=== PATIENT | female | born 1980 | race Caucasian/White ===

== ENCOUNTER 2016-10-12 15:30 | Inpatient (IN) | payer BC ==
[~2016-10-12] VITALS: Ht 162.6 cm; Wt 120.2 kg
[~2016-10-12 15:30] MED LIST: ALPR0.254 PO; AMLO5TAB2 PO; CARI350T27 PO; CYCL10TA9 PO; DCS100C PO; FEXO1TAB43 PO; FURO20TA4 PO; IBP800T PO; IBUP-1780 PO; LEVO75TA6 PO; METH4TAB PO; MONT10TA21 PO; MONT10TA24 PO; MULT-974 PO; NEBI5TAB8 PO; NORG1TAB30 PO; OXYC-197 PO; OXYC-202 PO; OXYC-309 PO; OXYC1TAB12 PO; PRD20T PO; PREN1TAB71 PO; RECLIPSEN PO; TRIA1CAP4 PO; TRM50T PO
[2016-10-12] MEDS ORDERED: ACETAMINOPHEN 500 MG TAB (TYLENOL) PO PRN (15:45)
[2016-10-12] MEDS ORDERED: ONDANSETRON 4 MG/2 ML (SDV) Z0FRAN IVP PRN (15:45)
[2016-10-12] MEDS ORDERED: ALPRAZolam 0.25 MG (XANAX) TAB PO PRN (15:45)
[2016-10-12 16:20] VITALS: BP 140/93
[2016-10-12 17:24] LABS: BASOPHILS % (AUTO) 0 % (0-10); EOSINOPHILS # (AUTO) 0.2 10^3/uL (0.0-0.3); EOSINOPHILS % (AUTO) 3 % (0-10); LYMPHOCYTES # (AUTO) 2.3 X 10^3 (1.0-4.0); LYMPHOCYTES % (AUTO) 30 % (12-44); MEAN CORPUSCULAR HEMOGLOBIN 30 PG (25-34); MEAN CORPUSCULAR HGB CONC 34 G/DL (32-36); MEAN CORPUSCULAR VOLUME 89 FL (80-99); MEAN PLATELET VOLUME 9.7 FL (7.4-10.4); MONOCYTES # (AUTO) 0.6 X 10^3 (0.0-1.0); MONOCYTES % (AUTO) 8 % (0-12); NEUTROPHILS # (AUTO) 4.6 X 10^3 (1.8-7.8); NEUTROPHILS % (AUTO) 59 % (42-75); PLATELET COUNT 242 10^3/uL (130-400); RED BLOOD COUNT 4.81 10^6/uL (4.35-5.85); RED CELL DISTRIBUTION WIDTH 12.6 % (10.0-14.5); WHITE BLOOD COUNT 7.7 10^3/uL (4.3-11.0)
--- NOTE | 2016-10-12 17:28 | Diagnostic Imaging Report ---
Indication: Difficulty breathing PA and lateral chest Heart size and pulmonary vascularity are normal. Lungs are clear. There are no effusions or pneumothoraces. Impression: Negative chest Dictated by: Dictated on workstation # [id number]
[2016-10-12 17:41] LABS: ANION GAP 11 MMOL/L (5-14); BLOOD UREA NITROGEN 13 MG/DL (7-18); BUN/CREATININE RATIO 16; CALCIUM 8.8 MG/DL (8.5-10.1); CARBON DIOXIDE 23 MMOL/L (21-32); CHLORIDE 103 MMOL/L (98-107); CREATININE SERUM 0.79 MG/DL (0.60-1.30); GFR ESTIMATED > 60; GLUCOSE 94 MG/DL (70-105); POTASSIUM 3.3 MMOL/L (3.6-5.0); SODIUM 137 MMOL/L (135-145)
[2016-10-12] MEDS: LEVOFLOXACIN 750 MG/150 ML IV 150 ML IV SCH (17:51)
[2016-10-12] MEDS: methylPREDNISolone 125 MG (Solu-MEDROL) VIAL IV SCH ×2 (17:51→23:57)
[2016-10-12] MEDS ORDERED: methylPREDNISolone 40 MG/ML (Solu-MEDROL) VIAL IV SCH (18:00)
[2016-10-12] MEDS ORDERED: FLU TRIvalent (5 YOA+) 2016-17 (AFLURIA) 0.5 ML IM ONE (18:30)
[2016-10-12] MEDS: RT-BUDESONIDE NEBS 0.5 MG/2ML (PULMICORT) AMP INH SCH (19:08)
[2016-10-12] MEDS: RT-ALBUTEROL/IPRATROPIUM 3 ML (DUONEB) VIAL INH SCH (19:08)
[2016-10-12 19:25] VITALS: BP 130/81
[2016-10-12] MEDS: POLYETHYLENE GLYCOL 17 GM (MIRALAX) PACK PO SCH (21:00)
[2016-10-12] MEDS: CEFEPIME INJECTION 2,000 MG in NORMAL SALINE (BAXTER MINI) 50 ML IV SCH (21:24)
[2016-10-12] MEDS: guaiFENesin/CODEINE (ROBITUSSIN AC) 10ML UDC PO PRN (21:24)
[2016-10-12 23:57] VITALS: BP 147/85
[2016-10-13 04:00] VITALS: BP 132/88
[2016-10-13] MEDS: guaiFENesin/CODEINE (ROBITUSSIN AC) 10ML UDC PO PRN ×2 (05:59→20:07)
[2016-10-13] MEDS: methylPREDNISolone 125 MG (Solu-MEDROL) VIAL IV SCH ×4 (05:59→23:30)
[2016-10-13] MEDS ORDERED: CEFEPIME HCL 2 GM (MAXIPIME) VIAL ONE (07:00)
[2016-10-13] MEDS ORDERED: NORMAL SALINE (BAXTER MINI) 50 ML IV ONE (07:00)
[2016-10-13] MEDS: RT-ALBUTEROL/IPRATROPIUM 3 ML (DUONEB) VIAL INH SCH (07:23)
[2016-10-13] MEDS: RT-BUDESONIDE NEBS 0.5 MG/2ML (PULMICORT) AMP INH SCH ×2 (07:23→20:19)
[2016-10-13 08:00] VITALS: BP 144/84
[2016-10-13] MEDS: CEFEPIME INJECTION 2,000 MG in NORMAL SALINE (BAXTER MINI) 50 ML IV SCH (08:07)
[2016-10-13] MEDS: POLYETHYLENE GLYCOL 17 GM (MIRALAX) PACK PO SCH ×2 (08:07→20:07)
--- NOTE | 2016-10-13 08:35 | Pulmonary Consultation ---
History of Present Illness History of Present Illness Date of Consultation 10/13/16 08:32 Date of Admission History of Present Illness 36-year-old white female clinic patient of [facility] for the past several years with a past medical history of asthma that required Advair maintenance then was discontinued when asthma improved during and breast-feeding but the last 6 months she has returned back to [facility] due to asthma issues. She was traveling to [place] over [place] and required urgent care evaluation placed on antibiotics and steroids and she was seen in my office 2 weeks later and reporting the wheezing had continued so I increased her Advair to 1 puff twice a day and gave her steroid dose but she called the office yesterday with severe wheezing and could no longer go on so she was placed in the hospital for status asthmaticus Allergies and Home Medications Allergies Coded Allergies: sumatriptan (Verified Allergy, Unknown, 10/12/16) Home Medications Albuterol Sulfate 8.5 Gm Hfa.aer.ad 1-2 PUFF IH Q4H PRN PRN SHORTNESS OF BREATH (Reported) Amlodipine Besylate 5 Mg Tablet 5 MG PO DAILY (Reported) Budesonide/Formoterol Fumarate 10.2 Gm Hfa.aer.ad 2 PUFF INH BID (Reported) Levothyroxine Sodium 75 Mcg Tablet 75 MCG PO DAILY (Reported) Montelukast Sodium 10 Mg Tablet 10 MG PO HS (Reported) Norgestimate-Ethinyl Estradiol 1 Each Tablet 1 TAB PO HS (Reported) Triamterene/Hydrochlorothiazid 1 Each Capsule 1 CAP PO DAILY (Reported) Past Vfcehoc-Bnwzuy-Blbdep Hx Patient Social History Alcohol Use: Denies Use Recreational Drug Use: No Smoking Status: Former Smoker Type Used: Cigarettes Former Smoker/When Quit: Nov 27, 2001 Recent Foreign Travel: No Contact w/Someone Who Travel: No Recent Infectious Disease Expo: No Recent Hopitalizations: No Physical Abuse Screen: No Sexual Abuse: No Immunizations Up To Date Tetanus Booster (TDap): Less than 5yrs PED Vaccines UTD: Yes Date of Influenza Vaccine: Jun 01, 2015 Seasonal Allergies Seasonal Allergies: Yes Surgeries HX Surgeries: Yes (acl repair, knee scope, discectomy X2, wisdom teeth removed ) Respiratory Hx Respiratory Disorders: Yes (SEASONAL ALLERGIES) Respiratory Disorders: Asthma, Pneumonia Cardiovascular Hx Cardiac Disorders: Yes (NOT ON MEDS AT THIS TIME-WATCHING B/P) Cardiac Disorders: High Cholesterol, Hypertension Neurological Hx Neurological Disorders: Yes (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) Reproductive System Hx Reproductive Disorders: No (DUB, POLYP) Sexually Transmitted Disease: No HIV/AIDS: No Female Reproductive Disorders: Menstrual Problems Genitourinary Hx Genitourinary Disorders: No Gastrointestinal Hx Gastrointestinal Disorders: Yes Gastrointestinal Disorders: Irritable Bowel Musculoskeletal Hx Musculoskeletal Disorders: Yes (herniated l4-l5--back discectomy 2011; LEFT ACL, knee scope, ) Musculoskeletal Disorders: Chronic Back Pain, Fractures Endocrine Hx Endocrine Disorders: Yes Endocrine Disorders: Hypothyroidsim HEENT HX ENT Disorders: No Loss of Vision: Denies Hearing Impairment: Denies Cancer Hx Cancer: No Psychosocial Hx Psychiatric Problems: No Integumentary HX Skin/Integumentary Disorder: Yes (hx skin fungus) Blood Transfusions Hx Blood Disorders: Yes (HX OF ANEMIA) Adverse Reaction to a Blood Tr: No (N/A) Family Medical History Family Medial History: Family history: Cardiovascular disease 03 FATHER Family history: Hypertension 03 MOTHER Headache disorder 03 FATHER (had brain tumor) 09 SISTER Myocardial infarction 03 FATHER Exam Exam Vital Signs Date Time Temp Pulse Resp B/P Pulse Ox O2 Delivery O2 Flow Rate FiO2 10/13/16 08:00 96.2 125 22 144/84 100 Room Air 10/13/16 07:27 96 Room Air 10/13/16 04:00 97.7 79 18 132/88 97 Room Air 10/13/16 01:00 86 10/12/16 23:57 97.9 91 20 147/85 95 Room Air 10/12/16 21:00 Room Air 10/12/16 19:25 98.9 102 18 130/81 95 Room Air 10/12/16 19:09 97 Room Air 10/12/16 19:09 97 10/12/16 19:00 98 10/12/16 16:20 Room Air 10/12/16 16:20 98.6 108 22 140/93 95 Room Air I & O 10/13/16 07:00 Intake Total 1190 ml Output Total 1475 ml Balance -285 ml General Appearance: No Apparent Distress WD/WN HEENT: PERRL/EOMI Neck: Full Range of Motion Normal Inspection Respiratory: Chest Non Tender No Accessory Muscle Use No Respiratory Distress Decreased Breath Sounds Cardiovascular: Regular Rate, Rhythm No Edema No Gallop Gastrointestinal: normal bowel sounds non tender soft Neurologic/Psychiatric: Alert Oriented x3 Skin: Normal Color Cool Results Lab Laboratory Tests 10/12/16 17:13 Assessment/Plan Assessment/Plan Asthma AE -Change SVN to Xopenex secondary to intolerance of albuterol -SOlumedrol -Continue to monitor Clinical Quality Measures DVT/VTE Risk/Contraindication: Risk Factor Score Per Nursin RFS Level Per Nursing on Admit: 3=High TED DAVID DO Oct 13, 2016 08:35
[2016-10-13] MEDS ORDERED: AMLO5TAB2 PO (08:38)
[2016-10-13] MEDS ORDERED: TRIA1CAP4 PO (08:38)
[2016-10-13] MEDS ORDERED: BUDE10.2 INH (08:38)
[2016-10-13] MEDS ORDERED: RT-ALBUINH IH (08:38)
[2016-10-13] MEDS ORDERED: KCL 20 MEQ TAB (K-DUR) PO NR (09:15)
[2016-10-13] MEDS ORDERED: CATHETER FLUSH 10 ML SYR IV PRN (09:45)
[2016-10-13] MEDS: RT-IPRATROPIUM (ATROVENT) 0.5MG/2.5ML AMP IH SCH ×4 (11:18→22:35)
[2016-10-13] MEDS: RT-LEVALBUTEROL (XOPENEX) 1.25 MG/3 ML NEB NON-FORMULARY INH SCH ×4 (11:18→22:35)
[2016-10-13] MEDS: CATHETER FLUSH 10 ML SYR IV SCH ×2 (11:56→20:07)
[2016-10-13 12:00] VITALS: BP 123/77
--- NOTE | 2016-10-13 12:03 | History & Physical-Hospitalist ---
HPI History of Present Illness: HPI/Chief Complaint CC: Severe wheezing HPI: This is a 36-year-old white female clinic patient of [facility] for the past several years with a past medical history of asthma that required Advair maintenance then was discontinued when asthma improved during and breast-feeding but the last 6 months she has returned back to [facility] due to asthma issues. She was traveling to [place] over [place] and required urgent care evaluation placed on antibiotics and steroids and she was seen in my office 2 weeks later and reporting the wheezing had continued so I increased her Advair to 1 puff twice a day and gave her steroid dose but she called the office yesterday with severe wheezing and could no longer go on so she was placed in the hospital for status asthmaticus and consult to Dr. Linda. Chest x-ray did not reveal any infiltrate and she has been responding to IV steroids. 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) Alcohol Use: Denies Use Recreational Drug Use: No Smoking Status: Former Smoker Former smoker/When Quit: Nov 27, 2001 Type Used: Cigarettes Physical Abuse Screen: No Sexual Abuse: No Recent Foreign Travel: No Contact w/other who traveled: No Recent Hopitalizations: No Recent Infectious Disease Expo: No Immunizations Up To Date Tetanus Booster (TDap): Less than 5yrs Date of Influenza Vaccine: Oct 13, 2016 Seasonal Allergies Seasonal Allergies: Yes Surgeries HX Surgeries: Yes (acl repair, knee scope, discectomy X2, wisdom teeth removed ) Surgeries: Gallbladder Respiratory Hx Respiratory Disorders: Yes (SEASONAL ALLERGIES) Respiratory Disorders: Asthma Cardiovascular Hx Cardiovascular Disorders: Yes (NOT ON MEDS AT THIS TIME-WATCHING B/P) Cardiac Disorders: High Cholesterol, Hypertension Neurological Hx Neurological Disorders: Yes (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) Reproductive System Hx Reproductive Disorders: No (DUB, POLYP) Sexually Transmitted Disease: No HIV/AIDS: No Female Reproductive Disorders: Menstrual Problems Genitourinary Hx Genitourinary Disorders: No Gastrointestinal Hx Gastrointestinal Disorders: Yes Gastrointestinal Disorders: Irritable Bowel Musculoskeletal Hx Musculoskeletal Disorders: Yes (herniated l4-l5--back discectomy 2011; LEFT ACL, knee scope, ) Musculoskeletal Disorders: Chronic Back Pain, Fractures Endocrine Hx Endocrine Disorders: Yes Endocrine Disorders: Hypothyroidsim HEENT HX ENT Disorders: No Loss of Vision: Denies Hearing Impairment: Denies Cancer Hx Cancer: No Psychosocial Hx Psychiatric Problems: No Integumentary HX Skin/Integumentary Disorder: Yes (hx skin fungus) Blood Transfusions Hx Blood Disorders: Yes (HX OF ANEMIA) Adverse Reaction to a Blood Tr: No (N/A) Family Medical History Family Hx: Family history: Cardiovascular disease 03 FATHER Family history: Hypertension 03 MOTHER Headache disorder 03 FATHER (had brain tumor) 09 SISTER Myocardial infarction 03 FATHER Review of Systems Constitutional: see HPI dizziness weakness EENTM: no symptoms reported Respiratory: cough dyspnea on exertion wheezing Cardiovascular: no symptoms reported Gastrointestinal: no symptoms reported Genitourinary: no symptoms reported Musculoskeletal: no symptoms reported Skin: no symptoms reported Psychiatric/Neurological: No Symptoms Reported All Other Systems Reviewed Negative Unless Noted: Yes Physical Exam Physical Exam Vital Signs Vital Sign - Last 12Hours Capillary Refill : General Appearance: WD/WN Chronically ill Moderate Distress (due to wheezing when I evaluated her before admit now much improved) Eyes: Bilateral Eye Normal Inspection, Bilateral Eye PERRL HEENT: PERRL/EOMI Normal ENT Inspection Pharynx Normal Neck: Full Range of Motion Normal Inspection Non Tender Supple Carotid Bruit Respiratory: Chest Non Tender Crackles Decreased Breath Sounds Rales (much improved exam day after admit) Wheezing Cardiovascular: Regular Rate, Rhythm No Edema No Gallop No JVD No Murmur Normal Peripheral Pulses Gastrointestinal: Normal Bowel Sounds No Organomegaly No Pulsatile Mass Non Tender Soft Back: Normal Inspection No CVA Tenderness No Vertebral Tenderness Extremity: Normal Capillary Refill Normal Inspection Normal Range of Motion Non Tender No Calf Tenderness No Pedal Edema Neurologic/Psychiatric: Alert Oriented x3 No Motor/Sensory Deficits Normal Mood/Affect Skin: Normal Color Warm/Dry Lymphatic: No Adenopathy Results Results/Procedures Lab Laboratory Tests 10/12/16 17:13 Assessment/Plan Admission Diagnosis Assessment: Status asthmaticus failed antibiotics and steroids 4 weeks ago 2 Hypertension Obesity Hypokalemia Anxiety Assessment and Plan Continue IV steroids Likely discharge on Sunday Monitor closely due to status asthmaticus high risk for respiratory decompensation if worsens Clinical Quality Measures DVT/VTE Risk/Contraindication: Risk Factor Score Per Nursin RFS Level Per Nursing on Admit: 3=High CINDY PERDUE DO Oct 13, 2016 12:03
[2016-10-13] MEDS: HYDROcodone/APAP 5 MG/325 MG (LORTAB) TAB PO PRN ×2 (15:24→23:34)
[2016-10-13 16:30] VITALS: BP 129/75
[2016-10-13] MEDS: LEVOFLOXACIN 750 MG/150 ML IV 150 ML IV SCH (16:46)
[2016-10-13 19:30] VITALS: BP 127/80
[2016-10-13 23:33] VITALS: BP 109/51
[2016-10-14] MEDS: RT-LEVALBUTEROL (XOPENEX) 1.25 MG/3 ML NEB NON-FORMULARY INH SCH ×3 (02:00→10:51)
[2016-10-14] MEDS: RT-IPRATROPIUM (ATROVENT) 0.5MG/2.5ML AMP IH SCH ×3 (02:00→10:51)
[2016-10-14 04:00] VITALS: BP 134/71
[2016-10-14] MEDS: guaiFENesin/CODEINE (ROBITUSSIN AC) 10ML UDC PO PRN (05:02)
[2016-10-14] MEDS: CATHETER FLUSH 10 ML SYR IV SCH (05:03)
[2016-10-14] MEDS: methylPREDNISolone 125 MG (Solu-MEDROL) VIAL IV SCH ×2 (05:03→10:51)
[2016-10-14] MEDS: RT-BUDESONIDE NEBS 0.5 MG/2ML (PULMICORT) AMP INH SCH (06:57)
[2016-10-14 08:45] VITALS: BP 111/66
[2016-10-14] MEDS: POLYETHYLENE GLYCOL 17 GM (MIRALAX) PACK PO SCH (09:00)
--- NOTE | 2016-10-14 10:41 | Discharge Summary-Hospitalist ---
Diagnosis/Chief Complaint Date of Admission Oct 12, 2016 at 16:20 Date of Discharge Discharge Date: Oct 14, 2016 Admission Diagnosis Assessment: Status asthmaticus failed antibiotics and steroids 4 weeks ago 2 Hypertension Obesity Hypokalemia Anxiety Discharge Diagnosis 1. Acute asthma exacerbation. 2. History of hypertension Reason Hospital Visit/Course CC: Severe wheezing HPI: This is a 36-year-old white female clinic patient of [facility] for the past several years with a past medical history of asthma that required Advair maintenance then was discontinued when asthma improved during and breast-feeding but the last 6 months she has returned back to [facility] due to asthma issues. She was traveling to [place] over [place] and required urgent care evaluation placed on antibiotics and steroids and she was seen in my office 2 weeks later and reporting the wheezing had continued so I increased her Advair to 1 puff twice a day and gave her steroid dose but she called the office yesterday with severe wheezing and could no longer go on so she was placed in the hospital for status asthmaticus and consult to Dr. Linda. Chest x-ray did not reveal any infiltrate and she has been responding to IV steroids. patient had significant improvement on IV steroids and bronchodilator therapy. On the morning of the she was not wheezing talking in full sentences. She is able to take deep breaths without coughing during the interview and voices no complaints. She did not feel that she would have any difficulty meeting her own care needs at home. We did discuss the importance of finishing an oral course of prednisone for which she was discharged on 40 mg 5 days 20 mg 5 days and off. The importance of her Symbicort inhaler compliance was also discussed and for now 4 times a day every 4 when necessary albuterol. She will follow-up with Dr. Perdue beginning of the week. She had no symptoms to suggest bacterial infection so was not discharged on an oral antibiotic. Discharge Summary Discharge Physical Examination Allergies: Coded Allergies: sumatriptan (Verified Allergy, Unknown, 10/12/16) Vitals & I&Os Vital Signs Date Time Temp Pulse Resp B/P Pulse Ox O2 Delivery O2 Flow Rate FiO2 10/14/16 09:00 Room Air 10/14/16 08:45 97.7 102 20 111/66 95 Hospital Course Labs (last 24 hrs) Microbiology 10/12/16 Blood Culture - Preliminary, Resulted No growth 10/13/16 Gram Stain - Final, Resulted 10/13/16 Sputum Culture - Preliminary, Resulted Usual/normal cate isolated. Discharge Home Medications: Active Scripts Active Reported Proair Hfa (Albuterol Sulfate) 8.5 Gm Hfa.aer.ad 1-2 Puff IH Q4H PRN Symbicort 160-4.5 Mcg Inhaler (Budesonide/Formoterol Fumarate) 10.2 Gm Hfa.aer.ad 2 Puff INH BID Triamterene-Hctz 37.5-25 mg Cp (Triamterene/Hydrochlorothiazid) 1 Each Capsule 1 Cap PO DAILY Amlodipine Besylate 5 Mg Tablet 5 Mg PO DAILY Mononessa 28 Tablet (Norgestimate-Ethinyl Estradiol) 1 Each Tablet 1 Tab PO HS Montelukast Sodium 10 Mg Tablet 10 Mg PO HS Levothyroxine Sodium 75 Mcg Tablet 75 Mcg PO DAILY Instructions to patient/family Please see electonic discharge instructions given to patient. Clinical Quality Measures DVT/VTE Risk/Contraindication: Risk Factor Score Per Nursin RFS Level Per Nursing on Admit: 3=High Copy Copies To 1: ALICIA PERDUE MARK D MD Oct 14, 2016 10:41
[2016-10-14 11:35] VITALS: BP 111/66
== END 2016-10-14 11:40 | disposition home or self-care (01) | DRG 203 ==
LOC: 4TH 16:20
PROVIDERS: ADMIT Internal Medicine; ATTEND Internal Medicine
DX: J45.902 Unspecified asthma with status asthmaticus (principal); J45.901 Unspecified asthma with (acute) exacerbation; I10 Essential (primary) hypertension; E78.00 Pure hypercholesterolemia, unspecified; E03.9 Hypothyroidism, unspecified; Z87.891 Personal history of nicotine dependence; E87.6 Hypokalemia; F41.9 Anxiety disorder, unspecified; E66.9 Obesity, unspecified; Z23 Encounter for immunization
CPT/HCPCS: 36415; 71020; 80048; 83605; 85025; 87040; 87070; 87205; 94640; 94760

== ENCOUNTER 2017-06-05 05:42 | Outpatient (CLI) | payer BC ==
[~2017-06-05] VITALS: Ht 162.6 cm; Wt 120.2 kg
[~2017-06-05 05:42] MED LIST changes: +BUDE10.2 INH; +RT-ALBUINH IH
[2017-06-05] MEDS ORDERED: FLUT1DIS26 IH (11:15)
== END 2017-06-05 11:22 ==
LOC: PREOP 05:42
PROVIDERS: ATTEND Podiatrist Foot Surgery
DX: Z01.818 Encounter for other preprocedural examination (principal); M72.2 Plantar fascial fibromatosis

== ENCOUNTER 2017-06-08 06:03 | Day surgery (SDC) | payer BC ==
[~2017-06-08] VITALS: Ht 162.6 cm; Wt 120.2 kg
[~2017-06-08 06:03] MED LIST changes: +FLUT1DIS26 IH
--- OUTSIDE RECORDS SUMMARY | 2017-06-08 06:08 | XMS REPORT | Clinical Summary ---
Author Author User, BALDEMAR Organization Formerly [facility] [place] Address Unknown Phone Unavailable Allergies, Adverse Reactions, Alerts Allergy Name Reaction Description Start Date Severity Status Provider IMITREX Fuzzy feeling Critical Active Cindy Perdue Conditions or Problems Problem Name Problem Code Onset Date Status Entry Date Provider Comment Standard Description Annotate COMMON MIGRAINE 346.10 Active Cindy Perdue Migraine without aura, without mention of intractable migraine, without mention of status migrainosus TREMOR NEC 333.1 Resolved Cindy Perdue Essential and other specified forms of tremor BRONCHITIS 490 Resolved Cindy Perdue Bronchitis, not specified as acute or chronic COUGH 786.2 Resolved Cindy Perdue Cough ADHD 314.01 Resolved Cindy Perdue Attention deficit disorder of childhood with hyperactivity OTITIS MEDIA 382.9 Resolved Cindy Perdue Unspecified otitis media HYPERTENSION 401.1 Active Cindy Perdue Benign essential hypertension UTI 599.0 Resolved Cindy Perdue Urinary tract infection, site not specified BACK PAIN 724.5 Resolved Cindy Perdue Backache, unspecified EDEMA LEG 782.3 Active Cindy Perdue Edema SKIN NEOPLASM, BENIGN 216.9 Resolved Cindy Perdue Benign neoplasm of skin, site unspecified CELLULITIS 682.9 Resolved Cindy Perdue Cellulitis and abscess of unspecified sites ASTHMA 493.9 Correction Cindy Perdue Asthma, unspecified ASTHMA, INTERMITTENT, MILD 493.90 Active Cindy Perdue Asthma, unspecified WHEEZING 786.07 Resolved Cindy Perdue Wheezing LUMBAR RADICULOPATHY, RIGHT 724.4 Resolved Cindy Perdue Thoracic or lumbosacral neuritis or radiculitis, unspecified SCIATICA/HERNIATED DISC 722.10 Resolved Cindy Perdue Displacement of lumbar intervertebral disc without myelopathy HYPOTHYROIDISM, PRIMARY 244.9 Active Cindy Perdue Unspecified hypothyroidism ANKLE PAIN, RIGHT 719.47 Resolved Cindy Perdue Pain in joint involving ankle and foot CERVICAL LYMPHADENOPATHY 785.6 Resolved Cindy Perdue Enlargement of lymph nodes DEHYDRATION 276.51 Inactive Cindy Perdue Dehydration VOMITING, PERSISTENT 536.2 Inactive Cindy Perdue Persistent vomiting BRONCHITIS 490 Inactive Cindy Perdue Bronchitis, not specified as acute or chronic SINUSITIS, SPHENOIDAL, ACUTE 461.3 Inactive Cindy Perdue Acute sphenoidal sinusitis BRONCHITIS 490 Inactive Cindy Perdue Bronchitis, not specified as acute or chronic TINEA VERSICOLOR 111.0 Resolved Cindy Perdue Pityriasis versicolor WEIGHT GAIN, ABNORMAL 783.1 Active Cindy Perdue Abnormal weight gain AMENORRHEA 626.0 Resolved Cindy Perdue Absence of menstruation Medication List Medication Instructions Start Date Stop Date Generic Name NDC Status Provider Patient Instruction SPRINTEC 28 0.25-35 MG-MCG TABS 1 PO daily NORGESTIMATE-ETH ESTRADIOL 47007260453 Active Cindy Ember Perdue XANAX 0.25 MG TABS 1 PO Q6hrs prn ALPRAZOLAM 63868969305 No Longer Active Cindy Ember Perdue LASIX 20 MG TAB 1 PO daily prn fluid retention FUROSEMIDE 44584812256 No Longer Active Cindy Ember Perdue PROAIR HFA 108 (90 BASE) MCG/ACT AERS 2 puffs Q4hrs prn ALBUTEROL SULFATE 79164388083 No Longer Active Cindy Ember Perdue ADVAIR DISKUS 100-50 MCG/DOSE AEPB 1 PUFF BID FLUTICASONE-SALMETEROL 64328433567 No Longer Active Cindy Ember Perdue DYAZIDE 37.5-25 MG CAP 1 PO daily TRIAMTERENE-HCTZ 34440562446 No Longer Active Cindy Ember Perdue BYSTOLIC 5 MG TABS 1 PO daily NEBIVOLOL HCL 47146151297 No Longer Active Cindy Ember Perdue NORVASC 5 MG TAB 1 PO QD AMLODIPINE BESYLATE 58711244517 No Longer Active Cindy Ember Perdue ZOFRAN ODT 8 MG TBDP 1 PO Q6hrs prn nausea ONDANSETRON 88083284928 No Longer Active Cindy Ember Perdue DIFLUCAN 100 MG TAB 1 PO daily for 2 weeks; then 1 PO daily prn FLUCONAZOLE 74962296471 No Longer Active Cindy Ember Perdue FOLIC ACID 1 MG TAB 1 po daily FOLIC ACID 48550568375 Active Cindy Ember Perdue RECLIPSEN 0.15-30 MG-MCG TABS 1 po daily DESOGESTREL-ETHINYL ESTRADIOL 00047992323 No Longer Active Cindy Ember SAUNDERS'S NASAL SPRAY (DEXAMETHASONE, GENTAMICIN, SALINE) 2 puffs each nostril TID for [address] SAUNDERS'[facility] NASAL SPRAY ( DEXAMETHASONE, GENTAMICIN, SALINE) No Longer Active Cindy Perdue SINGULAIR 10 MG TABS 1 PO QHS MONTELUKAST SODIUM 15782284089 Active Cate Lloyd TESSALON 200 MG CAPS 1 PO TID prn cough BENZONATATE No Longer Active Cindy Ember Perdue PREDNISONE 20 MG TAB 1 PO daily for 3 days then 1/2 PO daily for 3 days 12/24 PREDNISONE 91210323709 No Longer Active Cnidy Ember Perdue AUGMENTIN 500-125 MG TAB 1 PO BID AMOXICILLIN-POT CLAVULANATE 01939245774 No Longer Active Cindy Ember Perdue TESSALON 200 MG CAPS 1 PO TID prn cough BENZONATATE No Longer Active Cindywellington Perdue ROBITUSSIN A-C 10-100 MG/5ML SYRUP 1 teaspoon PO Q 4-6 hr prn ROBITUSSIN A-C 10-100 MG/5ML SYRUP No Longer Active Cindywellington Perdue PREDNISONE 10 MG TAB 2 po at once for 3 days then 1 po daily for 5 days 11/27 PREDNISONE 39902991564 No Longer Active Cindywellington Perdue BIAXIN 500 MG TAB 1 PO BID CLARITHROMYCIN 90107508648 No Longer Active Cindywellington Perdue SYNTHROID 0.075 MG TAB 1 PO daily LEVOTHYROXINE SODIUM 43689520226 Active Cate Lloyd LORTAB 5 5-500 MG TABS 1 to 2 PO Q6hrs prn ACETAMINOPHEN-HYDROCODONE 23790798190 No Longer Active Cindy Ember Perdue SOMA 350 MG TAB 1 po TID prn CARISOPRODOL 03926454474 No Longer Active Cindy Ember Perdue PERCOCET 5-325 MG TAB 1-2 PO Q 6 hours prn OXYCODONE- ACETAMINOPHEN 84413389575 No Longer Active Cindy Ember Perdue PREDNISONE 20 MG TAB 2 pills at once for 4 days then 1 pill daily for 4 days PREDNISONE 30471574225 No Longer Active Cindy Ember Perdue ROBITUSSIN A-C 10-100 MG/5ML SYRUP 1 teaspoon PO Q 4-6 hr prn ROBITUSSIN A-C 10-100 MG/5ML SYRUP No Longer Active Cindy Ember Perdue TESSALON 200 MG CAPS 1 PO TID prn cough BENZONATATE 81564154380 No Longer Active Cindy Ember Perdue PREDNISONE 20 MG TAB 2 pills at once for 2 days then 1 pill daily for 2 days PREDNISONE 20393663778 No Longer Active Cindy Ember Perdue PROAIR HFA 108 (90 BASE) MCG/ACT AERS 2 puff Q4 hrs prn wheezing ALBUTEROL SULFATE 13614088393 No Longer Active Cindy Ember Perdue ADVAIR DISKUS 100-50 MCG/DOSE MISC 1 puff BID FLUTICASONE-SALMETEROL 86258905591 No Longer Active Cindy Ember Perdue TESSALON 200 MG CAPS 1 PO TID prn cough BENZONATATE 57703669290 No Longer Active Cindy Ember Perdue ALBUTEROL 90 MCG/ACT AERS 2 puffs Q4-6hrs prn ALBUTEROL 89438666589 No Longer Active Cindy Ember Perdue STRATTERA 10 MG CAPS 1 PO BID ATOMOXETINE HCL 72430418956 No Longer Active Cindy Ember Perdue MIDRIN 325-65-100 MG CAPS 1-2 PO for migraine APAP- ISOMETHEPTENE-DICHLORAL 71194769783 No Longer Active Cindy Ember Perdue BCP as directed BCP No Longer Active Cindy Ember Perdue BIAXIN 500 MG TAB 1 PO BID CLARITHROMYCIN 75735237880 No Longer Active Cindy Ember Perdue ROBITUSSIN A-C 10-100 MG/5ML SYRUP 5cc PO Q 4-6 hr prn ROBITUSSIN A-C 10-100 MG/5ML SYRUP 73315320769 No Longer Active Cindy Ember Perdue CHLORPHENIRAMINE MALEATE 4 MG TABS 1 PO Q6hrs prn for cold 09/17 CHLORPHENIRAMINE MALEATE 11321745257 No Longer Active Cindy Ember Perdue AUGMENTIN 875-125 MG TAB 1 PO BID AMOXICILLIN-POT CLAVULANATE 82425788501 No Longer Active Cindy Ember Perdue TESSALON 200 MG CAPS 1 PO TID prn BENZONATATE 88450728711 No Longer Active Cindy Ember Perdue TESSALON 200 MG CAPS 1 po TID prn cough BENZONATATE 97191801285 No Longer Active Cindy Ember Perdue MANDI 28 3-0.03 MG TABS as directed DROSPIRENONE-ETHINYL ESTRADIOL 46580308364 No Longer Active Cindy Ember Perdue CODICLEAR DH 5-100 MG/5ML SYRP 5 cc Po Q4-6prn HYDROCODONE-GUAIFENESIN 62527508052 No Longer Active Cindy Ember Perdue AUGMENTIN 875-125 MG TAB 1 PO BID AMOXICILLIN-POT CLAVULANATE 29016700235 No Longer Active Cindy Ember Perdue ROBITUSSIN A-C 10-100 MG/5ML SYRUP 5cc PO Q 4-6 hr prn ROBITUSSIN A-C 10-100 MG/5ML SYRUP 44987402393 No Longer Active Cate Lloyd RELPAX 40 MG TABS as directed ELETRIPTAN HYDROBROMIDE 08305340360 No Longer Active Cindy Perdue IMITREX 100 MG TABS as directed SUMATRIPTAN SUCCINATE 40779567705 No Longer Active iCndy Perdue VELIVET TABS as directed DESOGESTREL-ETHINYL ESTRADIOL 64430281176 No Longer Active Cate Lloyd Immunizations Vaccine Administration Date Value Standard Description pneumococcal immunization administered done pneumococcal polysaccharide vaccine, 23 valent Vital Signs Date Name Value Unit Range Description blood pressure, diastolic - 8462-4 78 mm[Hg] BP gutierres blood pressure, systolic - 8480-6 118 mm[Hg] BP sys pulse rate E&M - 8867-4 80 /min Heart rate respiratory rate E&M - 9279-1 14 /min Resp rate temperature E&M 98.2 [degF] Body temperature blood pressure, diastolic - 8462-4 70 mm[Hg] BP gutierres blood pressure, systolic - 8480-6 120 mm[Hg] BP sys pulse rate E&M - 8867-4 88 /min Heart rate respiratory rate E&M - 9279-1 14 /min Resp rate temperature E&M 98.6 [degF] Body temperature weight E&M - 3141-9 270 [lb_av] Weight Measured Diagnostic Results Date Name Value Unit Range Description Clinical Lists Update: CMP,FLP,TSH,FREE T4 - Chemistry Estimated Glomerular Filtration Rate (calc) 84 mL/min/1.73m2 albumin, serum 3.5 g/dL cholesterol/HDL ratio, serum, percent 3.6 anion gap, serum 10 sodium, serum 139 mmol/L triglyceride, serum, fasting 162 mg/dL bilirubin, serum, total 0.5 mg/dL alanine aminotransferase (SGPT), serum 19 U/L aspartate aminotransferase (SGOT), serum 14 U/L protein, total, serum 5.9 g/dL potassium, serum 4.1 mmol/L LDL cholesterol, serum 92 mg/dL thyroid stimulating hormone, serum 3.82 u[iU]/mL HDL cholesterol, serum 47.0 mg/dL thyroxine, serum, free 0.93 ng/dL creatinine, serum 0.8 mg/dL carbon dioxide, venous blood 26.0 mmol/L cholesterol, serum 171 mg/dL chloride, serum 107 mmol/L calcium, serum 8.6 mg/dL urea nitrogen, blood 15 mg/dL alkaline phosphatase, serum 100 U/L glucose, plasma fasting 91 mg/dL Encounters Code Encounter Date Provider Facility CPT-64534 Ofc Vst, Est Level IV 17:15:02 CDT Cindy Perdue DO, FACP CPT-53952 Ofc Vst, Est Level IV 16:35:45 CDT Cindywellington Perdue [facility] CPT-40422 Ofc Vst, Est Level IV 19:35:36 CDT Cindy Perdue [facility] CPT-65118 Ofc Vst, Est Level III 14:02:40 CDT Cindy Perdue DO, FACP CPT-42570 Ofc Vst, Est Level III 19:49:54 [employer] [employer] Cindy Perdue DO, FACP CPT-32943 Ofc Vst, Est Level IV 11:14:25 [facility] [employer] Cindy Perdue DO, FACP CPT-93192 Ofc Vst, Est Level III 19:28:24 [employer] [employer] Cindy Hurtado Perdue, DO, FACP CPT-68929 Ofc Vst, Est Level IV 14:39:01 [employer] Cindy Hurtado Nette, DO, FACP CPT-73004 Ofc Vst, Est Level IV 16:16:52 CDT Cindy Ember [facility] CPT-27908 Ofc Vst, Est Level IV 16:43:48 CDT Cindy Ember [facility] CPT-33175 Ofc Vst, Est Level III 14:43:24 CDT Cindy Ember [facility] CPT-89590 Ofc Vst, Est Level IV 12:54:30 [employer] Cindy Hurtado Nette, DO, FACP CPT-52187 Ofc Vst, Est Level IV 14:34:50 CDT Cindy Ember Hurtado Nette, DO, FACP CPT-17450 Ofc Vst, Est Level IV 10:15:06 CDT Cindy Ember Hurtado Nette, DO, FACP CPT-78481 Ofc Vst, Est Level III 11:15:51 CDT Cindywellington Hurtado Nette, DO, FACP CPT-58026 Ofc Vst, Est Level III 14:27:08 CDT Cindywellington Hurtado Nette, DO, FACP CPT-53795 Ofc Vst, Est Level IV 14:10:01 CDT Cindywellington Hurtado Nette, DO, FACP CPT-81722 Ofc Vst, New Level IV 15:26:35 [employer] Cindy Hurtado Perdue, DO, FACP CPT-47782 Ofc Vst, Est Level III 14:13:38 CDT Cindy Ember Hurtado Nette, DO, FACP CPT-21582 Ofc Vst, Est Level III 11:42:15 [employer] D[employer] Cindy Perdue, DO, FACP CPT-57866 Ofc Vst, Est Level III 14:40:46 [employer] DIP[employer] Cindy Perdue, DO, FACP CPT-80593 Ofc Vst, Est Level III 11:30:03 [employer] DIP[employer] Cindy Perdue DO, FACP CPT-92334 Ofc Vst, Est Level III 12:39:54 CDT Cindy Perdue DO, FACP CPT-35250 Ofc Vst, Est Level III 10:19:05 CDT Cindy Perdue [facility] [place] CPT-27390 Ofc Vst, Est Level III 10:06:46 CDT Cindy Perdue [facility] [place] CPT-68669 Ofc Vst, New Level III 12:15:31 CDT Cindy Perdue [facility] [place]
--- OUTSIDE RECORDS SUMMARY | 2017-06-08 06:09 | XMS REPORT | Clinical Summary ---
Author Author User, [employer] Organization [facility] [place] Address Unknown Phone Unavailable Allergies, Adverse Reactions, [...] as acute or chronic TINEA VERSICOLOR 111.0 Active Cindy Perdue Pityriasis versicolor WEIGHT GAIN, ABNORMAL 783.1 Active Cindy Perdue Abnormal weight gain AMENORRHEA 626.0 Active Cindy Perdue Absence of menstruation Medication List Medication Instructions Start Date Stop Date Generic Name NDC Status Provider Patient Instruction ZOFRAN ODT 8 MG TBDP 1 PO Q6hrs prn nausea ONDANSETRON [id number] No Longer Active Cindy Ember Perdue DIFLUCAN 100 MG TAB 1 PO daily for 2 weeks; then 1 PO daily prn FLUCONAZOLE 25164618143 No Longer Active Cindy Ember Perdue FOLIC ACID 1 MG TAB 1 po daily FOLIC ACID 25509550017 Active Cindy Ember Perdue RECLIPSEN 0.15-30 MG-MCG TABS 1 po daily DESOGESTREL-ETHINYL ESTRADIOL 77650340548 No Longer Active Cindy Ember SAUNDERS'S NASAL SPRAY (DEXAMETHASONE, GENTAMICIN, SALINE) 2 puffs each nostril TID for [address] SAUNDERS[facility] NASAL SPRAY ( DEXAMETHASONE, GENTAMICIN, SALINE) No Longer Active Cindywellington Perdue SINGULAIR 10 MG TABS 1 PO QHS MONTELUKAST SODIUM 86903571024 Active Cate Bernardotis TESSALON 200 MG CAPS 1 PO TID prn cough BENZONATATE No Longer Active Cindywellington Perdue PREDNISONE 20 MG TAB 1 PO daily for 3 days then 1/2 PO daily for 3 days 12/24 PREDNISONE 30414562895 No Longer Active Cindywellington Perdue AUGMENTIN 500-125 MG TAB 1 PO BID AMOXICILLIN-POT CLAVULANATE 34504380216 No Longer Active Cindywellington Perdue TESSALON 200 MG CAPS 1 PO TID prn cough BENZONATATE No Longer Active Cindywellington Perdue ROBITUSSIN A-C 10-100 MG/5ML SYRUP 1 teaspoon PO Q 4-6 hr prn ROBITUSSIN A-C 10-100 MG/5ML SYRUP No Longer Active Cindywellington Perdue PREDNISONE 10 MG TAB 2 po at once for 3 days then 1 po daily for 5 days 11/27 PREDNISONE 29911624982 No Longer Active Cindy Ember Perdue BIAXIN 500 MG TAB 1 PO BID CLARITHROMYCIN 26365984563 No Longer Active Cindy Ember Perdue XANAX 0.25 MG TABS 1 PO Q6hrs prn ALPRAZOLAM 75699267903 Active Cindy Ember Perdue BYSTOLIC 5 MG TABS 1 PO daily NEBIVOLOL HCL 69354432778 Active Cindy Ember Perdue LASIX 20 MG TAB 1 PO daily prn fluid retention FUROSEMIDE 95520799872 Active Cindy Ember Perdue SYNTHROID 0.075 MG TAB 1 PO daily LEVOTHYROXINE SODIUM 15839217870 Active Cate Lloyd LORTAB 5 5-500 MG TABS 1 to 2 PO Q6hrs prn ACETAMINOPHEN-HYDROCODONE 24659846695 No Longer Active Cindy Ember Perdue PROAIR HFA 108 (90 BASE) MCG/ACT AERS 2 puffs Q4hrs prn ALBUTEROL SULFATE 58547835443 Active Cate Lloyd SOMA 350 MG TAB 1 po TID prn CARISOPRODOL 26679408206 No Longer Active Cindywellington Perdue PERCOCET 5-325 MG TAB 1-2 PO Q 6 hours prn OXYCODONE- ACETAMINOPHEN 50423352514 No Longer Active Cindywellington Perdue PREDNISONE 20 MG TAB 2 pills at once for 4 days then 1 pill daily for 4 days PREDNISONE 15725937671 No Longer Active Cindy Ember Perdue ADVAIR DISKUS 100-50 MCG/DOSE AEPB 1 PUFF BID FLUTICASONE- SALMETEROL 82907959948 Active Cindywellington Perdue ROBITUSSIN A-C 10-100 MG/5ML SYRUP 1 teaspoon PO Q 4-6 hr prn ROBITUSSIN A-C 10-100 MG/5ML SYRUP No Longer Active Cindy Ember Perdue TESSALON 200 MG CAPS 1 PO TID prn cough BENZONATATE 87320864615 No Longer Active Cindy Ember Perdue PREDNISONE 20 MG TAB 2 pills at once for 2 days then 1 pill daily for 2 days PREDNISONE 79442947137 No Longer Active Cindy Ember Perdue PROAIR HFA 108 (90 BASE) MCG/ACT AERS 2 puff Q4 hrs prn wheezing ALBUTEROL SULFATE 74218948368 No Longer Active Cindy Ember Perdue ADVAIR DISKUS 100-50 MCG/DOSE MISC 1 puff BID FLUTICASONE-SALMETEROL 94541993182 No Longer Active Cindy Ember Perdue NORVASC 5 MG TAB 1 PO QD AMLODIPINE BESYLATE 06510496632 Active Cindy Ember Perdue DYAZIDE 37.5-25 MG CAP 1 PO daily TRIAMTERENE-HCTZ 28721855839 Active Cindy Ember Perdue TESSALON 200 MG CAPS 1 PO TID prn cough BENZONATATE 09778210688 No Longer Active Cindy Ember Perdue ALBUTEROL 90 MCG/ACT AERS 2 puffs Q4-6hrs prn ALBUTEROL 60293640122 No Longer Active Cindy Ember Perdue STRATTERA 10 MG CAPS 1 PO BID ATOMOXETINE HCL 66163034330 No Longer Active Cindy Ember Perdue MIDRIN 325-65-100 MG CAPS 1-2 PO for migraine APAP- ISOMETHEPTENE-DICHLORAL 94386666455 No Longer Active Cindy Ember Perdue BCP as directed BCP No Longer Active Cindy Ember Perdue BIAXIN 500 MG TAB 1 PO BID CLARITHROMYCIN 75116031915 No Longer Active Cindy Ember Perdue ROBITUSSIN A-C 10-100 MG/5ML SYRUP 5cc PO Q 4-6 hr prn ROBITUSSIN A-C 10-100 MG/5ML SYRUP 20949164792 No Longer Active Cindy Ember Perdue CHLORPHENIRAMINE MALEATE 4 MG TABS 1 PO Q6hrs prn for cold 09/17 CHLORPHENIRAMINE MALEATE 44461430152 No Longer Active Cindy Ember Perdue AUGMENTIN 875-125 MG TAB 1 PO BID AMOXICILLIN-POT CLAVULANATE 49168604066 No Longer Active Cindy Ember Perdue TESSALON 200 MG CAPS 1 PO TID prn BENZONATATE 16515614421 No Longer Active Cindy Ember Perdue TESSALON 200 MG CAPS 1 po TID prn cough BENZONATATE 85137452958 No Longer Active Cindy Ember Perdue MANDI 28 3-0.03 MG TABS as directed DROSPIRENONE-ETHINYL ESTRADIOL 29945063017 No Longer Active Cindy Ember Perdue CODICLEAR DH 5-100 MG/5ML SYRP 5 cc Po Q4-6prn HYDROCODONE-GUAIFENESIN 65286610249 No Longer Active Cindy Ember Perdue AUGMENTIN 875-125 MG TAB 1 PO BID AMOXICILLIN-POT CLAVULANATE 16068516078 No Longer Active Cindy Ember Perdue ROBITUSSIN A-C 10-100 MG/5ML SYRUP 5cc PO Q 4-6 hr prn ROBITUSSIN A-C 10-100 MG/5ML SYRUP 95901934866 No Longer Active Cate Lloyd RELPAX 40 MG TABS as directed ELETRIPTAN HYDROBROMIDE 59562830175 No Longer Active Cindy Ember Perdue IMITREX 100 MG TABS as directed SUMATRIPTAN SUCCINATE 52898094556 No Longer Active Cindy Ember JAIMES[place]ton TABS as directed DESOGESTREL-ETHINYL ESTRADIOL 35458189221 No Longer Active Cate Lloyd Immunizations Vaccine Administration Date Value Standard Description pneumococcal immunization administered done pneumococcal polysaccharide vaccine, 23 valent Vital Signs Date Name Value Unit Range Description blood pressure, diastolic - 8462-4 70 mm[Hg] BP gutierres blood pressure, systolic - 8480-6 120 mm[Hg] BP sys pulse rate E&M - 8867-4 88 /min Heart rate respiratory rate E&M - 9279-1 14 /min Resp rate temperature E&M 98.6 [degF] Body temperature weight E&M - 3141-9 270 [lb_av] Weight Measured Diagnostic Results Date Name Value Unit Range Description Clinical Lists Update: CBC,CMP,FLP,TSH,Free T4 - Chemistry Estimated Glomerular Filtration Rate (calc) 85 mL/min/1.73m2 glucose, plasma fasting 99 mg/dL albumin, serum 3.8 g/dL alkaline phosphatase, serum 103 U/L urea nitrogen, blood 16 mg/dL calcium, serum 9.1 mg/dL chloride, serum 103 mmol/L cholesterol, serum 191 mg/dL cholesterol/HDL ratio, serum, percent 4.4 anion gap, serum 12 sodium, serum 138 mmol/L triglyceride, serum, fasting 143 mg/dL bilirubin, serum, total 0.6 mg/dL alanine aminotransferase (SGPT), serum 21 U/L aspartate aminotransferase (SGOT), serum 15 U/L protein, total, serum 0.6 g/dL potassium, serum 4.2 mmol/L LDL cholesterol, serum 119 mg/dL thyroid stimulating hormone, serum 2.07 u[iU]/mL HDL cholesterol, serum 43.0 mg/dL thyroxine, serum, free 0.93 ng/dL creatinine, serum 0.8 mg/dL carbon dioxide, venous blood 27.0 mmol/L Clinical Lists Update: CBC,CMP,FLP,TSH,Free T4 - Hematology leukocyte count, blood 8.2 10*3/mm3 mean corpuscular volume, RBC 89 fL red blood cell distribution width 14.3 % hemoglobin, blood 12.9 g/dL platelet count 286 10*3/mm3 erythrocyte (RBC) count 4.63 10*6/mm3 hematocrit, blood 41 % Encounters Code Encounter Date Provider Facility CPT-92944 Ofc Vst, Est Level IV 16:35:45 CDT Cindy Ember Perdue [facility] CPT-14235 Ofc Vst, Est Level IV 19:35:36 CDT Cindy Ember Perdue [facility] CPT-00522 Ofc Vst, Est Level III 14:02:40 CDT Cindy Perdue DO, FACP CPT-13690 Ofc Vst, Est Level III 19:49:54 [employer] Cindy Perdue DO, FACP CPT-77120 Ofc Vst, Est Level IV 11:14:25 [facility] Cindy Perdue DO, FACP CPT-09422 Ofc Vst, Est Level III 19:28:24 [employer] C[employer] Cindy Perdue, DO, FACP CPT-84359 Ofc Vst, Est Level IV 14:39:01 [employer] C[employer] Cindy Perdue DO, FACP CPT-23873 Ofc Vst, Est Level IV 16:16:52 CDT Cindy Ember Perdue [facility] CPT-93660 Ofc Vst, Est Level IV 16:43:48 CDT Cindywellington Perdue [facility] CPT-81117 Ofc Vst, Est Level III 14:43:24 CDT Cindy Ember Per[facility] CPT-62040 Ofc Vst, Est Level IV 12:54:30 [employer] C[employer] Cindy Ember Hurtado Perdue, DO, FACP CPT-79668 Ofc Vst, Est Level IV 14:34:50 CDT Cindy Ember Hurtado Nette, DO, FACP CPT-39086 Ofc Vst, Est Level IV 10:15:06 CDT Cindy Ember Hurtado Nette, DO, FACP CPT-04640 Ofc Vst, Est Level III 11:15:51 CDT Cindy Ember Hurtado Nette, DO, FACP CPT-02428 Ofc Vst, Est Level III 14:27:08 CDT Cindy Ember Hurtado Nette, DO, FACP CPT-44821 Ofc Vst, Est Level IV 14:10:01 CDT Cindywellington Hurtado Nette, DO, FACP CPT-00968 Ofc Vst, New Level IV 15:26:35 L[employer] CUTTER Cindy Hurtado Nette, DO, FACP CPT-86740 Ofc Vst, Est Level III 14:13:38 CDT Cindywellington Hurtado Nette, DO, FACP CPT-67281 Ofc Vst, Est Level III 11:42:15 [employer] C[employer]TER Cindy Hurtado Nette, DO, FACP CPT-18700 Ofc Vst, Est Level III 14:40:46 [employer] C[employer]TER Cindy Hurtado Nette, DO, FACP CPT-80549 Ofc Vst, Est Level III 11:30:03 [employer] CUTTER Cindy Hurtado Nette, DO, FACP CPT-71164 Ofc Vst, Est Level III 12:39:54 CDT Cindy Ember Perdue, DO, FACP CPT-29845 Ofc Vst, Est Level III 10:19:05 CDT Cindy Perdue [facility] [place] CPT-01208 Ofc Vst, Est Level III 10:06:46 CDT Cindy Perdue [facility] [place] CPT-96710 Ofc Vst, New Level III 12:15:31 CDT Cindy Perdue [facility] [place]
--- OUTSIDE RECORDS SUMMARY | 2017-06-08 06:10 | XMS REPORT | Clinical Summary ---
Author Author User, BALDEMAR Organization [facility] [place] Address Unknown Phone Unavailable Allergies, Adverse Reactions, [...] MG-MCG TABS 1 PO daily NORGESTIMATE-ETH ESTRADIOL [id number] Active Cindy Ember Perdue XANAX 0.25 MG TABS 1 PO Q6hrs prn ALPRAZOLAM 18534921364 No Longer Active Cindy Ember Perdue LASIX 20 MG TAB 1 PO daily prn fluid retention FUROSEMIDE 63573629124 No Longer Active Cindy Ember Perdue PROAIR HFA 108 (90 BASE) MCG/ACT AERS 2 puffs Q4hrs prn ALBUTEROL SULFATE 58601594271 No Longer Active Cindy Ember Perdue ADVAIR DISKUS 100-50 MCG/DOSE AEPB 1 PUFF BID FLUTICASONE-SALMETEROL 36566508080 No Longer Active Cindy Ember Perdue DYAZIDE 37.5-25 MG CAP 1 PO daily TRIAMTERENE-HCTZ 54605395284 No Longer Active Cidny Ember Perdue BYSTOLIC 5 MG TABS 1 PO daily NEBIVOLOL HCL 61634485680 No Longer Active Cindy Ember Perdue NORVASC 5 MG TAB 1 PO QD AMLODIPINE BESYLATE 37598881408 No Longer Active Cindy Ember Perdue ZOFRAN ODT 8 MG TBDP 1 PO Q6hrs prn nausea ONDANSETRON 86070893466 No Longer Active Cindy Ember Perdue DIFLUCAN 100 MG TAB 1 PO daily for 2 weeks; then 1 PO daily prn FLUCONAZOLE 60431911847 No Longer Active Cindy Ember Perdue FOLIC ACID 1 MG TAB 1 po daily FOLIC ACID 52139803121 Active Cindy Ember Perdue RECLIPSEN 0.15-30 MG-MCG TABS 1 po daily DESOGESTREL-ETHINYL ESTRADIOL 78707893257 No Longer Active Cindy Ember SAUNDERS'S NASAL SPRAY (DEXAMETHASONE, GENTAMICIN, SALINE) 2 puffs each nostril TID for [address] SAUNDERS'[facility] NASAL SPRAY ( DEXAMETHASONE, GENTAMICIN, SALINE) No Longer Active Cindy Ember Perdue SINGULAIR 10 MG TABS 1 PO QHS MONTELUKAST SODIUM 81465785100 Active Cate Lloyd TESSALON 200 MG CAPS 1 PO TID prn cough BENZONATATE No Longer Active Cindy Ember Perdue PREDNISONE 20 MG TAB 1 PO daily for 3 days then 1/2 PO daily for 3 days 12/24 PREDNISONE 43941307088 No Longer Active Cindy Ember ePrdue AUGMENTIN 500-125 MG TAB 1 PO BID AMOXICILLIN-POT CLAVULANATE 23089015725 No Longer Active Cindy Ember Perdue TESSALON 200 MG CAPS 1 PO TID prn cough BENZONATATE No Longer Active Cindywellington Perdue ROBITUSSIN A-C 10-100 MG/5ML SYRUP 1 teaspoon PO Q 4-6 hr prn ROBITUSSIN A-C 10-100 MG/5ML SYRUP No Longer Active Cindywellington Perdue PREDNISONE 10 MG TAB 2 po at once for 3 days then 1 po daily for 5 days 11/27 PREDNISONE 47464656735 No Longer Active Cindywellington Perdue BIAXIN 500 MG TAB 1 PO BID CLARITHROMYCIN 08299064869 No Longer Active Cindy Ember Perdue SYNTHROID 0.075 MG TAB 1 PO daily LEVOTHYROXINE SODIUM 38939856961 Active Cate Lloyd LORTAB 5 5-500 MG TABS 1 to 2 PO Q6hrs prn ACETAMINOPHEN-HYDROCODONE 53008999588 No Longer Active Cindy Ember Perdue SOMA 350 MG TAB 1 po TID prn CARISOPRODOL 54209415208 No Longer Active Cindy Ember Perdue PERCOCET 5-325 MG TAB 1-2 PO Q 6 hours prn OXYCODONE- ACETAMINOPHEN 91772914654 No Longer Active Cindy Ember Perdue PREDNISONE 20 MG TAB 2 pills at once for 4 days then 1 pill daily for 4 days PREDNISONE 18754885006 No Longer Active Cindy Ember Perdue ROBITUSSIN A-C 10-100 MG/5ML SYRUP 1 teaspoon PO Q 4-6 hr prn ROBITUSSIN A-C 10-100 MG/5ML SYRUP No Longer Active Cindy Ember Perdue TESSALON 200 MG CAPS 1 PO TID prn cough BENZONATATE 06925755868 No Longer Active Cindy Ember Perdue PREDNISONE 20 MG TAB 2 pills at once for 2 days then 1 pill daily for 2 days PREDNISONE 55230451030 No Longer Active Cindy Ember Perdue PROAIR HFA 108 (90 BASE) MCG/ACT AERS 2 puff Q4 hrs prn wheezing ALBUTEROL SULFATE 52059377165 No Longer Active Cindy Ember Perdue ADVAIR DISKUS 100-50 MCG/DOSE MISC 1 puff BID FLUTICASONE-SALMETEROL 43476658084 No Longer Active Cindy Ember Perdue TESSALON 200 MG CAPS 1 PO TID prn cough BENZONATATE 13827493001 No Longer Active Cindy Ember Perdue ALBUTEROL 90 MCG/ACT AERS 2 puffs Q4-6hrs prn ALBUTEROL 24559274178 No Longer Active Cindy Ember Perdue STRATTERA 10 MG CAPS 1 PO BID ATOMOXETINE HCL 71268871364 No Longer Active Cindy Ember Perdue MIDRIN 325-65-100 MG CAPS 1-2 PO for migraine APAP- ISOMETHEPTENE-DICHLORAL 80452226651 No Longer Active Cindy Ember Perdue BCP as directed BCP No Longer Active Cindy Ember Perdue BIAXIN 500 MG TAB 1 PO BID CLARITHROMYCIN 69391481407 No Longer Active Cindy Ember Perdue ROBITUSSIN A-C 10-100 MG/5ML SYRUP 5cc PO Q 4-6 hr prn ROBITUSSIN A-C 10-100 MG/5ML SYRUP 41421929307 No Longer Active Cindy Ember Perdue CHLORPHENIRAMINE MALEATE 4 MG TABS 1 PO Q6hrs prn for cold 09/17 CHLORPHENIRAMINE MALEATE 62561494683 No Longer Active Cindy Ember Perdue AUGMENTIN 875-125 MG TAB 1 PO BID AMOXICILLIN-POT CLAVULANATE 57161120667 No Longer Active Cindy Ember Perdue TESSALON 200 MG CAPS 1 PO TID prn BENZONATATE 33470887487 No Longer Active Cindy Ember Perdue TESSALON 200 MG CAPS 1 po TID prn cough BENZONATATE 63618350806 No Longer Active Cindy Ember Perdue MANDI 28 3-0.03 MG TABS as directed DROSPIRENONE-ETHINYL ESTRADIOL 64811768238 No Longer Active Cindy Ember Perdue CODICLEAR DH 5-100 MG/5ML SYRP 5 cc Po Q4-6prn HYDROCODONE-GUAIFENESIN 78214473970 No Longer Active Cindy Ember Perdue AUGMENTIN 875-125 MG TAB 1 PO BID AMOXICILLIN-POT CLAVULANATE 10899910618 No Longer Active Cindy Ember Perdue ROBITUSSIN A-C 10-100 MG/5ML SYRUP 5cc PO Q 4-6 hr prn ROBITUSSIN A-C 10-100 MG/5ML SYRUP 35546579456 No Longer Active Cate Lloyd RELPAX 40 MG TABS as directed ELETRIPTAN HYDROBROMIDE 76636131531 No Longer Active Cindy Perdue IMITREX 100 MG TABS as directed SUMATRIPTAN SUCCINATE 00957501963 No Longer Active Cindy Perdue VELIVET TABS as directed DESOGESTREL-ETHINYL ESTRADIOL 35710561222 No Longer Active Cate Lloyd Immunizations Vaccine [...] Estimated Glomerular Filtration Rate (calc) 85 mL/min/1.73m2 LDL cholesterol, serum 119 mg/dL glucose, plasma fasting 99 mg/dL alkaline phosphatase, serum 103 U/L cholesterol/HDL ratio, serum, percent 4.4 urea nitrogen, blood 16 mg/dL anion gap, serum 12 calcium, serum 9.1 mg/dL sodium, serum 138 mmol/L chloride, serum 103 mmol/L triglyceride, serum, fasting 143 mg/dL cholesterol, serum 191 mg/dL bilirubin, serum, total 0.6 mg/dL carbon dioxide, venous blood 27.0 mmol/L alanine aminotransferase (SGPT), serum 21 U/L creatinine, serum 0.8 mg/dL aspartate aminotransferase (SGOT), serum 15 U/L thyroxine, serum, free 0.93 ng/dL protein, total, serum 0.6 g/dL HDL cholesterol, serum 43.0 mg/dL potassium, serum 4.2 mmol/L thyroid stimulating hormone, serum 2.07 u[iU]/mL albumin, serum 3.8 g/dL Clinical Lists Update: CBC,CMP,FLP,TSH,Free T4 - Hematology hemoglobin, blood 12.9 g/dL hematocrit, blood 41 % platelet count 286 10*3/mm3 erythrocyte (RBC) count 4.63 10*6/mm3 leukocyte count, blood 8.2 10*3/mm3 mean corpuscular volume, RBC 89 fL red blood cell distribution width 14.3 % Clinical Lists Update: CMP,FLP,TSH,FREE T4 - Chemistry alanine aminotransferase (SGPT), serum 19 U/L LDL cholesterol, serum 92 mg/dL bilirubin, serum, total 0.5 mg/dL carbon dioxide, venous blood 26.0 mmol/L triglyceride, serum, fasting 162 mg/dL cholesterol, serum 171 mg/dL sodium, serum 139 mmol/L chloride, serum 107 mmol/L anion gap, serum 10 calcium, serum 8.6 mg/dL cholesterol/HDL ratio, serum, percent 3.6 urea nitrogen, blood 15 mg/dL glucose, plasma fasting 91 mg/dL alkaline phosphatase, serum 100 U/L Estimated Glomerular Filtration Rate (calc) 84 mL/min/1.73m2 albumin, serum 3.5 g/dL thyroxine, serum, free 0.93 ng/dL aspartate aminotransferase (SGOT), serum 14 U/L HDL cholesterol, serum 47.0 mg/dL protein, total, serum 5.9 g/dL thyroid stimulating hormone, serum 3.82 u[iU]/mL potassium, serum 4.1 mmol/L creatinine, serum 0.8 mg/dL Encounters Code Encounter Date Provider Facility CPT-86604 Ofc Vst, Est Level IV 17:15:02 CDT Cindywellington Perdue DO, FACP CPT-87939 Ofc Vst, Est Level IV 16:35:45 CDT Cindy Ember Perdue [facility] CPT-13075 Ofc Vst, Est Level IV 19:35:36 CDT Cindy Ember Perdue [facility] CPT-14431 Ofc Vst, Est Level III 14:02:40 CDT Cindywellington Perdue DO, FACP CPT-26081 Ofc Vst, Est Level III 19:49:54 [facility] Cindy Perdue DO, FACP CPT-57936 Ofc Vst, Est Level IV 11:14:25 [facility] Cindy Perdue DO, FACP CPT-01947 Ofc Vst, Est Level III 19:28:24 [facility] Cindy Perdue DO, FACP CPT-63177 Ofc Vst, Est Level IV 14:39:01 [facility] [facility] Cindywellington Hurtado Nette, DO, FACP CPT-09740 Ofc Vst, Est Level IV 16:16:52 CDT Cindy Ember Perdue [facility] CPT-48650 Ofc Vst, Est Level IV 16:43:48 CDT Cindy Ember Perdue [facility] CPT-67386 Ofc Vst, Est Level III 14:43:24 CDT Cindy Ember Perdue [facility] CPT-61724 Ofc Vst, Est Level IV 12:54:30 [facility] Cindy Hurtaod Nette, DO, FACP CPT-81900 Ofc Vst, Est Level IV 14:34:50 CDT Cindy Ember Hurtado Nette, DO, FACP CPT-72844 Ofc Vst, Est Level IV 10:15:06 CDT Cindy Ember Hurtado Nette, DO, FACP CPT-09241 Ofc Vst, Est Level III 11:15:51 CDT Cindy Ember Hurtado Nette, DO, FACP CPT-34028 Ofc Vst, Est Level III 14:27:08 CDT Cindywellington Hurtado Nette, DO, FACP CPT-08295 Ofc Vst, Est Level IV 14:10:01 CDT Cindy Ember Hurtado Nette, DO, FACP CPT-67556 Ofc Vst, New Level IV 15:26:35 [employer] Cindy Kimner Cindy Hurtado Nette, DO, FACP CPT-85720 Ofc Vst, Est Level III 14:13:38 CDT Cindy Ember Hurtado Nette, DO, FACP CPT-32405 Ofc Vst, Est Level III 11:42:15 [employer] Cindy Ember Hurtado Nette, DO, FACP CPT-06968 Ofc Vst, Est Level III 14:40:46 [employer] Cindy Perdue DO, FACP CPT-62026 Ofc Vst, Est Level III 11:30:03 [employer] Cindy Perdue DO, FACP CPT-19380 Ofc Vst, Est Level III 12:39:54 CDT Cindy Perdue DO, FACP CPT-29815 Ofc Vst, Est Level III 10:19:05 CDT Cindy Perdue [facility] [place] CPT-93534 Ofc Vst, Est Level III 10:06:46 CDT Cindy Perdue [facility] [place] CPT-92168 Ofc Vst, New Level III 12:15:31 CDT Cindy Perdue [facility] [place]
--- OUTSIDE RECORDS SUMMARY | 2017-06-08 06:11 | XMS REPORT | Clinical Summary ---
Author Author User, WinFreeCandy Organization [facility] [place] Address Unknown Phone Unavailable Allergies, Adverse Reactions, [...] forms of tremor BRONCHITIS 490 Resolved Cindy Perude Bronchitis, not specified as acute or chronic [...] Unspecified hypothyroidism ANKLE PAIN, RIGHT 719.47 Resolved iCndy Perdue Pain in joint involving ankle and [...] TBDP 1 PO Q6hrs prn nausea ONDANSETRON 15807204431 No Longer Active Cindy Ember Perdue DIFLUCAN 100 MG TAB 1 PO daily for 2 weeks; then 1 PO daily prn FLUCONAZOLE 51392215226 No Longer Active Cindy Ember Perdue FOLIC ACID 1 MG TAB 1 po daily FOLIC ACID 24033367220 Active Cindy Ember Perdue RECLIPSEN 0.15-30 MG-MCG TABS 1 po daily DESOGESTREL-ETHINYL ESTRADIOL 10382575987 No Longer Active Cindywellington SAUNDERS'S NASAL SPRAY (DEXAMETHASONE, GENTAMICIN, SALINE) 2 puffs each nostril TID for [address] SAUNDERS'[facility] NASAL SPRAY ( DEXAMETHASONE, GENTAMICIN, SALINE) No Longer Active Cindywellington Perdue SINGULAIR 10 MG TABS 1 PO QHS MONTELUKAST SODIUM 32076112376 Active Cate Lloyd TESSALON 200 MG CAPS 1 PO TID prn cough BENZONATATE No Longer Active Cindywellington Perdue PREDNISONE 20 MG TAB 1 PO daily for 3 days then 1/2 PO daily for 3 days 12/24 PREDNISONE 47091595128 No Longer Active Cindywellington Perdue AUGMENTIN 500-125 MG TAB 1 PO BID AMOXICILLIN-POT CLAVULANATE 02541154762 No Longer Active Cindywellington Perdue TESSALON 200 MG CAPS 1 PO TID prn cough BENZONATATE No Longer Active Cindywellington Predue ROBITUSSIN A-C 10-100 MG/5ML SYRUP 1 teaspoon PO Q 4-6 hr prn ROBITUSSIN A-C 10-100 MG/5ML SYRUP No Longer Active Cindywellington Perdue PREDNISONE 10 MG TAB 2 po at once for 3 days then 1 po daily for 5 days 11/27 PREDNISONE 74247114486 No Longer Active Cindy Ember Perdue BIAXIN 500 MG TAB 1 PO BID CLARITHROMYCIN 59160673788 No Longer Active Cindy Ember Perdue XANAX 0.25 MG TABS 1 PO Q6hrs prn ALPRAZOLAM 16999358596 Active Cindy Ember Perdue BYSTOLIC 5 MG TABS 1 PO daily NEBIVOLOL HCL 01239423729 Active Cindy Ember Perdue LASIX 20 MG TAB 1 PO daily prn fluid retention FUROSEMIDE 57730311694 Active Cindy Ember Perdeu SYNTHROID 0.075 MG TAB 1 PO daily LEVOTHYROXINE SODIUM 54032665800 Active Cate Lloyd LORTAB 5 5-500 MG TABS 1 to 2 PO Q6hrs prn ACETAMINOPHEN-HYDROCODONE 65888480776 No Longer Active Cindy Ember Perdue PROAIR HFA 108 (90 BASE) MCG/ACT AERS 2 puffs Q4hrs prn ALBUTEROL SULFATE 57397390565 Active Cate Lloyd SOMA 350 MG TAB 1 po TID prn CARISOPRODOL 50108185477 No Longer Active Cindywellington Perdue PERCOCET 5-325 MG TAB 1-2 PO Q 6 hours prn OXYCODONE- ACETAMINOPHEN 99284105190 No Longer Active Cindy Ember Perdue PREDNISONE 20 MG TAB 2 pills at once for 4 days then 1 pill daily for 4 days PREDNISONE 75939798072 No Longer Active Cindy Ember Perdue ADVAIR DISKUS 100-50 MCG/DOSE AEPB 1 PUFF BID FLUTICASONE- SALMETEROL 82141638866 Active Cindy Ember Perdue ROBITUSSIN A-C 10-100 MG/5ML SYRUP 1 teaspoon PO Q 4-6 hr prn ROBITUSSIN A-C 10-100 MG/5ML SYRUP No Longer Active Cindy Ember Perdue TESSALON 200 MG CAPS 1 PO TID prn cough BENZONATATE 41529074896 No Longer Active Cindy Ember Perdue PREDNISONE 20 MG TAB 2 pills at once for 2 days then 1 pill daily for 2 days PREDNISONE 69145709817 No Longer Active Cindy Ember Perdue PROAIR HFA 108 (90 BASE) MCG/ACT AERS 2 puff Q4 hrs prn wheezing ALBUTEROL SULFATE 55879272970 No Longer Active Cindy Ember Perdue ADVAIR DISKUS 100-50 MCG/DOSE MISC 1 puff BID FLUTICASONE-SALMETEROL 39571315819 No Longer Active Cindy Ember Perdue NORVASC 5 MG TAB 1 PO QD AMLODIPINE BESYLATE 48112991564 Active Cindy Ember Perdue DYAZIDE 37.5-25 MG CAP 1 PO daily TRIAMTERENE-HCTZ 89907453077 Active Cindy Ember Perdue TESSALON 200 MG CAPS 1 PO TID prn cough BENZONATATE 56805411832 No Longer Active Cindy Ember Perdue ALBUTEROL 90 MCG/ACT AERS 2 puffs Q4-6hrs prn ALBUTEROL 04605783839 No Longer Active Cindy Ember Perdue STRATTERA 10 MG CAPS 1 PO BID ATOMOXETINE HCL 92270161927 No Longer Active Cindy Ember Perdue MIDRIN 325-65-100 MG CAPS 1-2 PO for migraine APAP- ISOMETHEPTENE-DICHLORAL 86048904061 No Longer Active Cindy Ember Perdue BCP as directed BCP No Longer Active Cindy Ember Perdue BIAXIN 500 MG TAB 1 PO BID CLARITHROMYCIN 09134004255 No Longer Active Cindy Ember Perdue ROBITUSSIN A-C 10-100 MG/5ML SYRUP 5cc PO Q 4-6 hr prn ROBITUSSIN A-C 10-100 MG/5ML SYRUP 29133471591 No Longer Active Cindy Ember Perdue CHLORPHENIRAMINE MALEATE 4 MG TABS 1 PO Q6hrs prn for cold 09/17 CHLORPHENIRAMINE MALEATE 01477531959 No Longer Active Cindy Ember Perdue AUGMENTIN 875-125 MG TAB 1 PO BID AMOXICILLIN-POT CLAVULANATE 97645477413 No Longer Active Cindy Ember Perdue TESSALON 200 MG CAPS 1 PO TID prn BENZONATATE 25583338539 No Longer Active Cindy Ember Perdue TESSALON 200 MG CAPS 1 po TID prn cough BENZONATATE 14680558650 No Longer Active Cindy Ember Perdue MANDI 28 3-0.03 MG TABS as directed DROSPIRENONE-ETHINYL ESTRADIOL 75089577242 No Longer Active Cindy Ember Perdue CODICLEAR DH 5-100 MG/5ML SYRP 5 cc Po Q4-6prn HYDROCODONE-GUAIFENESIN 55162128113 No Longer Active Cindy Ember Perdue AUGMENTIN 875-125 MG TAB 1 PO BID AMOXICILLIN-POT CLAVULANATE 33374508015 No Longer Active Cindy Ember Perdue ROBITUSSIN A-C 10-100 MG/5ML SYRUP 5cc PO Q 4-6 hr prn ROBITUSSIN A-C 10-100 MG/5ML SYRUP 72886018845 No Longer Active Cate Lloyd RELPAX 40 MG TABS as directed ELETRIPTAN HYDROBROMIDE 07702136849 No Longer Active Cindy Ember Perdue IMITREX 100 MG TABS as directed SUMATRIPTAN SUCCINATE 97803279373 No Longer Active Cindy Graymary JAIMESPayton TABS as directed DESOGESTREL-ETHINYL ESTRADIOL 17702267045 No Longer Active Cate Lloyd Immunizations Vaccine [...] Clinical Lists Update: CBC,CMP,FLP,TSH,Free T4 - Chemistry albumin, serum 3.8 g/dL Estimated Glomerular Filtration Rate (calc) 85 mL/min/1.73m2 urea nitrogen, blood 16 mg/dL calcium, serum 9.1 mg/dL chloride, serum 103 mmol/L cholesterol, serum 191 mg/dL carbon dioxide, venous blood 27.0 mmol/L creatinine, serum 0.8 mg/dL thyroxine, serum, free 0.93 ng/dL HDL cholesterol, serum 43.0 mg/dL thyroid stimulating hormone, serum 2.07 u[iU]/mL LDL cholesterol, serum 119 mg/dL potassium, serum 4.2 mmol/L protein, total, serum 0.6 g/dL aspartate aminotransferase (SGOT), serum 15 U/L alanine aminotransferase (SGPT), serum 21 U/L bilirubin, serum, total 0.6 mg/dL triglyceride, serum, fasting 143 mg/dL sodium, serum 138 mmol/L anion gap, serum 12 cholesterol/HDL ratio, serum, percent 4.4 glucose, plasma fasting 99 mg/dL alkaline phosphatase, serum 103 U/L Clinical Lists Update: CBC,CMP,FLP,TSH,Free T4 - Hematology hemoglobin, blood 12.9 g/dL hematocrit, blood 41 % platelet count 286 10*3/mm3 erythrocyte (RBC) count 4.63 10*6/mm3 leukocyte count, blood 8.2 10*3/mm3 mean corpuscular volume, RBC 89 fL red blood cell distribution width 14.3 % Clinical Lists Update: CMP,FLP,TSH,FREE T4 - Chemistry creatinine, serum 0.8 mg/dL albumin, serum 3.5 g/dL HDL cholesterol, serum 47.0 mg/dL thyroid stimulating hormone, serum 3.82 u[iU]/mL LDL cholesterol, serum 92 mg/dL potassium, serum 4.1 mmol/L protein, total, serum 5.9 g/dL aspartate aminotransferase (SGOT), serum 14 U/L alanine aminotransferase (SGPT), serum 19 U/L bilirubin, serum, total 0.5 mg/dL triglyceride, serum, fasting 162 mg/dL sodium, serum 139 mmol/L anion gap, serum 10 cholesterol/HDL ratio, serum, percent 3.6 glucose, plasma fasting 91 mg/dL Estimated Glomerular Filtration Rate (calc) 84 mL/min/1.73m2 carbon dioxide, venous blood 26.0 mmol/L cholesterol, serum 171 mg/dL chloride, serum 107 mmol/L calcium, serum 8.6 mg/dL urea nitrogen, blood 15 mg/dL alkaline phosphatase, serum 100 U/L thyroxine, serum, free 0.93 ng/dL Encounters Code Encounter Date Provider Facility CPT-43218 Ofc Vst, Est Level IV 16:35:45 CDT Cindy Ember Kimner [facility] CPT-52704 Ofc Vst, Est Level IV 19:35:36 CDT Cindy Ember Perdue [facility] CPT-06523 Ofc Vst, Est Level III 14:02:40 CDT Cindy Emebr Nette Perdue, DO, FACP CPT-77429 Ofc Vst, Est Level III 19:49:54 ADMINISTRATIVE ASSOCIATE Cindy Perdue, DO, FACP CPT-87007 Ofc Vst, Est Level IV 11:14:25 ADMINISTRATIVE ASSOCIATE Cindy Perdue, DO, FACP CPT-34880 Ofc Vst, Est Level III 19:28:24 ADMINISTRATIVE ASSOCIATE Cindy Perdue, DO, FACP CPT-66123 Ofc Vst, Est Level IV 14:39:01 ADMINISTRATIVE ASSOCIATE Cindy Perdue, DO, FACP CPT-61738 Ofc Vst, Est Level IV 16:16:52 CDT Cindy Ember Nette [facility] CPT-24047 Ofc Vst, Est Level IV 16:43:48 CDT Cindy Ember Nette [facility] CPT-57112 Ofc Vst, Est Level III 14:43:24 CDT Cindy Ember Nette [facility] CPT-17983 Ofc Vst, Est Level IV 12:54:30 ADMINISTRATIVE ASSOCIATE Cindy Perdue, DO, FACP CPT-09188 Ofc Vst, Est Level IV 14:34:50 CDT Cindywellington Perdue, DO, FACP CPT-37031 Ofc Vst, Est Level IV 10:15:06 CDT Cindy Ember Hurtado Nette, DO, FACP CPT-06456 Ofc Vst, Est Level III 11:15:51 CDT Cindy Ember Augusti S Perdue, DO, FACP CPT-20927 Ofc Vst, Est Level III 14:27:08 CDT Cindy Ember Augusti S Nette, DO, FACP CPT-53388 Ofc Vst, Est Level IV 14:10:01 CDT Cindy Ember Augusti S Perdue, DO, FACP CPT-97146 Ofc Vst, New Level IV 15:26:35 ADMINISTRATIVE ASSOCIATE Cindy Ember Augusti S Nette, DO, FACP CPT-13026 Ofc Vst, Est Level III 14:13:38 CDT Cindy Ember White S Nette, DO, FACP CPT-39411 Ofc Vst, Est Level III 11:42:15 ADMINISTRATIVE ASSOCIATE Cindy Ember Augusti S Nette, DO, FACP CPT-77816 Ofc Vst, Est Level III 14:40:46 ADMINISTRATIVE ASSOCIATE Cindy Ember Augusti S Nette, DO, FACP CPT-52121 Ofc Vst, Est Level III 11:30:03 ADMINISTRATIVE ASSOCIATE Cindy Ember Kimner Cindy S Nette, DO, FACP CPT-14368 Ofc Vst, Est Level III 12:39:54 CDT Cindy Ember White S Nette, DO, FACP CPT-25672 Ofc Vst, Est Level III 10:19:05 CDT Cindywellington Perdue [facility] [place] CPT-00897 Ofc Vst, Est Level III 10:06:46 CDT Cindywellington Perdue [facility] [place] CPT-60168 Ofc Vst, New Level III 12:15:31 CDT Cindy Ember Perdue [facility] [place]
[2017-06-08 06:50] VITALS: BP 141/89
[2017-06-08] MEDS ORDERED: fentaNYL INJECTION 100 MCG/2 ML AMP ONE ×2 (06:52→07:50)
[2017-06-08] MEDS ORDERED: MIDAZOLAM 2 MG/2 ML (VERSED) VIAL ONE (06:52)
[2017-06-08] MEDS ORDERED: DEXAMETHASONE 10 MG/ML (DECADRON) 1 ML VIAL ONE ×2 (06:52→07:11)
[2017-06-08] MEDS ORDERED: proPOfol 200 MG/20 ML (DIPRIVAN) VIAL IV ONE (06:52)
[2017-06-08] MEDS ORDERED: ONDANSETRON 4 MG/2 ML (SDV) Z0FRAN ONE (06:52)
[2017-06-08] MEDS ORDERED: LIDOCAINE PF 2% 5 ML (XYLOCAINE) VIAL ONE (06:52)
[2017-06-08] MEDS ORDERED: SEVOFLURANE (ULTANE) 15 ML INHAL SOLN ONE ×3 (06:52→08:02)
[2017-06-08] MEDS ORDERED: LACTATED RINGERS 1,000 ML IV ONE (06:52)
[2017-06-08] MEDS ORDERED: ceFAZolin 1 GM/NS 50 ML IVPB IV ONE ×2 (07:00)
[2017-06-08] MEDS ORDERED: MEPIVACAINE (CARBOCAINE) 2% 50 ML VIAL ONE (07:10)
[2017-06-08] MEDS ORDERED: BUPIVACAINE 0.25% 30 ML (SENSORCAINE) VIAL ONE (07:11)
[2017-06-08] MEDS ORDERED: LACTATED RINGERS 1,000 ML IV PRN (07:15)
--- NOTE | 2017-06-08 07:29 | Progress Note-Pre Operative ---
Pre-Operative Progress Note H&P Reviewed The H&P was reviewed, patient examined and no changes noted. Date Seen by Provider: Jun 08, 2017 Time Seen by Provider: 07:30 Date H&P Reviewed: Jun 08, 2017 Time H&P Reviewed: 07:30 Pre-Operative Diagnosis: plantar fascitis right foot OCTAVIO MATOS DPM Jun 08, 2017 7:29 am
[2017-06-08] MEDS ORDERED: ONDANSETRON 4 MG/2 ML (SDV) Z0FRAN IVP PRN (08:30)
[2017-06-08] MEDS ORDERED: morphine INJ 10 MG/ML 1ML (SYR OR VIAL) IVP PRN (08:30)
--- NOTE | 2017-06-08 09:00 | Progress Note-Post Operative ---
Post-Operative Progess Note Surgeon (s)/Principal Security Architect (s) Surgeon OCTAVIO MATOS DPM Principal Security Architect: none Pre-Operative Diagnosis plantar fascitis right foot Post-Operative Diagnosis same Procedure & Operative Findings Date of Procedure 06/08/17 Procedure Performed/Findings endoscopic plantar fasciotomy right foot Anesthesia Type general with infiltration Estimated Blood Loss Estimated blood loss (mL): min Specimens/Packing Specimens Removed none OCTAVIO MATOS DPM Jun 08, 2017 9:00 am
[2017-06-08] MEDS ORDERED: LACTATED RINGERS 1,000 ML IV SCH (09:01)
--- NOTE | 2017-06-08 09:01 | Discharge Instructions ---
Discharge Instructions Discharge Medications New, Converted or Re-Newed RX: RX Given to Pt/Family Patient Instructions Patient Instructions 1. Follow up in office in 2 weeks. 2. Diet as tolerated. 3. Activity as tolerated. Activity & Diet Activity as Tolerated: Yes OCTAVIO MATOS DPM Jun 08, 2017 9:01 am
[2017-06-08] MEDS ORDERED: HYDROcodone/APAP 5 MG/325 MG (LORTAB) TAB PO PRN (09:15)
[2017-06-08 09:20] VITALS: BP 145/93
[2017-06-08 09:50] VITALS: BP 154/96
[2017-06-08 10:20] VITALS: BP 143/85
--- NOTE | 2017-06-08 10:27 | OPERATIVE REPORT ---
DATE OF SERVICE: 06/08/2017 PREOPERATIVE DIAGNOSIS: Plantar fasciitis, right foot. POSTOPERATIVE DIAGNOSIS: Plantar fasciitis, right foot. NAME OF OPERATION: Endoscopic plantar fasciotomy, right foot. DESCRIPTION OF OPERATION: With the patient in the supine position having been affected by general anesthetic, sterile prep and drape were performed and a Eduardo bandage was applied above the level of the right ankle. Appropriate measurements were taken and 0.5 cm incision was made at the medial aspect of the right heel. This incision was deepened with sharp dissection and 8 channeling instrument was placed medial to lateral and just inferior to the plantar fascia. A trocar and cannula was then placed in the channel medial to laterally and the medial and lateral margins of the middle slip of the plantar fascia were identified. A hook knife was then used to release the middle slip of the plantar fascia with the lateral slip remaining intact. The plantar aspect of the right foot was thoroughly palpated, and there was evidence following release with complete release of the fascia at that time. Cannula was removed and the incisions medially and laterally were closed with one horizontal mattress suture of 3-0 Vicryl. Tourniquet was released. Blood flow returned to the digits was within normal limits. There was 10 mL of a 50:50 mixture of 0.5% Marcaine and 1% Carbocaine were then used and instilled into the operative site to control postoperative pain. Decadron was also instilled into the operative site to control postoperative pain and swelling. Adaptic and a sterile compressive dressing was applied and carried above the level of the right ankle covered with circular Coban. The patient tolerated the procedure well with minimal blood loss, left the OR to PAR in apparent good condition. Job ID: [id number] DocumentID: [id number] Dictated Date: 06/08/2017 09:07:12 Software Client Architect Date: 06/08/2017 10:26:58 Dictated By: OCTAVIO MATOS DPM
[2017-06-08 11:15] VITALS: BP 143/85
[2017-06-12] MEDS ORDERED: AZIT250T5 PO (11:38)
== END 2017-06-08 11:15 | disposition home or self-care (01) ==
LOC: SDC 06:03
PROVIDERS: ATTEND Podiatrist Foot Surgery
DX: M72.2 Plantar fascial fibromatosis (principal); Z11.2 Encounter for screening for other bacterial diseases; F41.9 Anxiety disorder, unspecified; F32.9 Major depressive disorder, single episode, unspecified; I10 Essential (primary) hypertension; G40.909 Epilepsy, unspecified, not intractable, without status epilepticus; J45.40 Moderate persistent asthma, uncomplicated; F90.9 Attention-deficit hyperactivity disorder, unspecified type; E03.9 Hypothyroidism, unspecified
CPT/HCPCS: 84703; 87081

== ENCOUNTER 2017-06-12 11:20 | Observation (INO) | payer BC ==
[~2017-06-12] VITALS: Ht 162.6 cm; Wt 123.5 kg
[2017-06-12] MEDS ORDERED: RT-ALBUTEROL/IPRATROPIUM 3 ML (DUONEB) VIAL ONE (11:21)
[2017-06-12] MEDS ORDERED: methylPREDNISolone 125 MG (Solu-MEDROL) VIAL IVP ONE (11:30)
[2017-06-12] MEDS ORDERED: PROMETHAZINE/ CODEINE SYRUP 5 ML UDC PO ONE (11:30)
[2017-06-12] MEDS ORDERED: RT-ALBUTEROL/IPRATROPIUM 3 ML (DUONEB) VIAL INH ONE (11:30)
--- NOTE | 2017-06-12 11:35 | ED Respiratory ---
General Chief Complaint: Respiratory Problems Stated Complaint: SOA/ASTHMA Source: patient Exam Limitations: no limitations History of Present Illness Time seen by provider: 11:32 Initial Comments To ER with shortness of breath and asthma. This began about a week ago. A few days ago she was seen at the [facility] here by Dr. Hudson and given a prescription for a pro-air inhaler and azithromycin. She continues to take these and has been having to use her pro-air inhaler every 3 or 4 hours. She does not have a nebulizer at home. Yesterday, she called her primary care provider Dr. Love who called in steroids. Patient has now had a dose of steroids yesterday and a dose of steroids today. Patient states that her wheezing has improved from yesterday but now has been replaced with a persistent intermittently productive cough. She feels short of breath and checked her oxygen saturation at home and found it to be 93 percent. On arrival to ER she is 91 percent on room air. She is anxious and tearful. She is a nonsmoker. She did have a plantar fascia release of the right foot one week ago here by Dr. Jackson. She denies noting any swelling to the right leg. Timing/Duration: constant, getting worse Severity: moderate Associated Symptoms: cough, shortness of breath, wheezing Allergies and Home Medications Allergies Coded Allergies: sumatriptan (Verified Allergy, Unknown, 06/05/17) Home Medications Albuterol Sulfate 8.5 Gm Hfa.aer.ad, 1-2 PUFF IH Q4H PRN for SHORTNESS OF BREATH , (Reported) Amlodipine Besylate 5 Mg Tablet, 5 MG PO DAILY, (Reported) Azithromycin 250 Mg Tablet, 250 MG PO DAILY, (Reported) Fluticasone/Salmeterol 1 Each Blst.w.dev, 1 EACH IH PRN, (Reported) Levothyroxine Sodium 75 Mcg Tablet, 75 MCG PO DAILY, (Reported) Montelukast Sodium 10 Mg Tablet, 10 MG PO HS, (Reported) Norgestimate-Ethinyl Estradiol 1 Each Tablet, 1 TAB PO HS, (Reported) Prednisone 20 Mg Tab, 40 MG PO [id number], #11 (Reported) Take 3 tabs(60mg)daily, decrease by 1/2 tab(10mg)daily. Triamterene/Hydrochlorothiazid 1 Each Capsule, 1 CAP PO DAILY, (Reported) Constitutional: see HPI, No chills, No fever EENTM: see HPI Respiratory: see HPI, cough, short of breath, wheezing Genitourinary: no symptoms reported Musculoskeletal: no symptoms reported Psychiatric/Neurological: No Symptoms Reported Past Hkwngdx-Gqqqbh-Ectdtv Hx Patient Social History Type Used: Cigarettes Former Smoker, Quit: Oct 01, 2006 Recent Hopitalizations: No Immunizations Up To Date Tetanus Booster (TDap): Unknown PED Vaccines UTD: Yes Date of Influenza Vaccine: Oct 13, 2016 Seasonal Allergies Seasonal Allergies: Yes Surgeries History of Surgeries: Yes (acl repair, knee scope, discectomy X2, wisdom teeth removed ) Surgeries: Gallbladder Respiratory History of Respiratory Disorde: Yes (SEASONAL ALLERGIES) Respiratory Disorders: Asthma, Pneumonia Currently Using CPAP: No Currently Using BIPAP: No Cardiovascular History of Cardiac Disorders: Yes Cardiac Disorders: Hypertension Neurological History of Neurological Disord: Yes (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) Reproductive System Hx Reproductive Disorders: No (DUB, POLYP) Sexually Transmitted Disease: No HIV/AIDS: No Female Reproductive Disorders: Menstrual Problems Genitourinary History of Genitourinary Disor: No Gastrointestinal History of Gastrointestinal Di: Yes Gastrointestinal Disorders: Irritable Bowel Musculoskeletal History of Musculoskeletal Dis: Yes (herniated l4-l5--back discectomy 2011; LEFT ACL, knee scope, ) Musculoskeletal Disorders: Fractures Endocrine History of Endocrine Disorders: No Endocrine Disorders: Hypothyroidsim HEENT History of HEENT Disorders: No Loss of Vision: Bilateral Hearing Impairment: Denies Cancer History of Cancer: No Psychosocial History of Psychiatric Problem: No Integumentary History of Skin or Integumenta: Yes (hx skin fungus) Blood Transfusions History of Blood Disorders: Yes (HX OF ANEMIA) Adverse Reaction to a Blood Tr: No (N/A) Family Medical History Family Medial History: Family history: Cardiovascular disease 03 FATHER Family history: Hypertension 03 MOTHER Headache disorder 03 FATHER (had brain tumor) 09 SISTER Myocardial infarction 03 FATHER Physical Exam Vital Signs Vital Sign - Last 12Hours 06/12/17 06/12/17 11:25 11:29 Temp 99.1 Pulse 120 Resp 28 B/P (MAP) 147/100 Pulse Ox 91 O2 Delivery Room Air O2 Flow Rate 2.00 Capillary Refill : General Appearance: WD/WN, no apparent distress, obese Eyes: Bilateral Eye Normal Inspection, Bilateral Eye PERRL, Bilateral Eye EOMI HEENT: PERRL/EOMI, normal ENT inspection, TMs normal Neck: non-tender, full range of motion Respiratory: normal breath sounds, no respiratory distress, no accessory muscle use, decreased breath sounds Cardiovascular: regular rate, rhythm, no murmur Gastrointestinal: normal bowel sounds, non tender, soft Extremities: normal range of motion, non-tender Neurologic/Psychiatric: alert, normal mood/affect, oriented x 3 Skin: normal color, warm/dry Progress/Results/Core Measures Results/Orders Lab Results Laboratory Tests Test 06/12/17 11:25 06/12/17 11:50 Range/Units White Blood Count 12.6 H 4.3-11.0 10^3/uL Red Blood Count 5.19 4.35-5.85 10^6/uL Hemoglobin 15.4 11.5-16.0 G/DL Hematocrit 46 35-52 % Mean Corpuscular Volume 89 80-99 FL Mean Corpuscular Hemoglobin 30 25-34 PG Mean Corpuscular Hemoglobin Concent 34 32-36 G/DL Red Cell Distribution Width 12.4 10.0-14.5 % Platelet Count 312 130-400 10^3/uL Mean Platelet Volume 9.9 7.4-10.4 FL Neutrophils (%) (Auto) 84 H 42-75 % Lymphocytes (%) (Auto) 11 L 12-44 % Monocytes (%) (Auto) 5 0-12 % Eosinophils (%) (Auto) 0 0-10 % Basophils (%) (Auto) 1 0-10 % Neutrophils # (Auto) 10.6 H 1.8-7.8 X 10^3 Lymphocytes # (Auto) 1.3 1.0-4.0 X 10^3 Monocytes # (Auto) 0.6 0.0-1.0 X 10^3 Eosinophils # (Auto) 0.0 0.0-0.3 10^3/uL Basophils # (Auto) 0.1 0.0-0.1 10^3/uL D-Dimer 0.36 0.00-0.49 UG/ML Sodium Level 142 135-145 MMOL/L Potassium Level 3.6 3.6-5.0 MMOL/L Chloride Level 107 98-107 MMOL/L Carbon Dioxide Level 23 21-32 MMOL/L Anion Gap 12 5-14 MMOL/L Blood Urea Nitrogen 11 7-18 MG/DL Creatinine 0.76 0.60-1.30 MG/DL Estimat Glomerular Filtration Rate > 60 BUN/Creatinine Ratio 14 Glucose Level 102 70-105 MG/DL Calcium Level 9.3 8.5-10.1 MG/DL Urine Color YELLOW Urine Clarity SLIGHTLY CLOUDY Urine pH 8 5-9 Urine Specific Samson 1.015 L 1.016-1.022 Urine Protein 3+ H NEGATIVE Urine Glucose (UA) NEGATIVE NEGATIVE Urine Ketones NEGATIVE NEGATIVE Urine Nitrite NEGATIVE NEGATIVE Urine Bilirubin NEGATIVE NEGATIVE Urine Urobilinogen NORMAL NORMAL MG/DL Urine Leukocyte Esterase NEGATIVE NEGATIVE Urine RBC (Auto) NEGATIVE NEGATIVE Urine RBC NONE /HPF Urine WBC NONE /HPF Urine Squamous Epithelial Cells 0-2 /HPF Urine Crystals NONE /LPF Urine Bacteria TRACE /HPF Urine Casts NONE /LPF Urine Mucus SMALL H /LPF Urine Culture Indicated NO My Orders Orders - SHERON MAHER APRN Promethazine/ Codeine Syrup (Phenergan W (06/12/17 11:30) Cbc With Automated Diff (06/12/17 11:29) Basic Metabolic Panel (06/12/17 11:29) Ua Culture If Indicated (06/12/17 11:29) Urine Bedside (06/12/17 11:29) Fibrin Degradation Products (06/12/17 11:29) Chest Pa/Lat (2 View) (06/12/17 11:29) Methylprednisolone Sod Succ (Solu-Medrol (06/12/17 11:30) Albuterol/Ipra Inhalation Soln (Duoneb I (06/12/17 11:30) Svn Sm Volume Nebulizer Rt-Rfs (06/12/17 11:29) Saline Lock/Iv-Start (06/12/17 11:29) Medications Given in ED Current Medications Medications Dose Ordered Sig/Sarita Route Start Time Stop Time Status Last Admin Dose Admin Methylprednisolone Sodium Succinate 125 mg ONCE ONCE IVP 06/12/17 11:30 06/12/17 11:31 DC 06/12/17 11:41 125 MG Promethazine HCl/ Codeine 5 ml ONCE ONCE PO 06/12/17 11:30 06/12/17 11:31 DC 06/12/17 11:41 5 ML Vital Signs/I&O Vital Sign - Last 12Hours 06/12/17 06/12/17 11:25 11:29 Temp 99.1 Pulse 120 Resp 28 B/P (MAP) 147/100 Pulse Ox 91 97 O2 Delivery Room Air Nasal Cannula O2 Flow Rate 2.00 Diagnostic Imaging Diagonstic Imaging: Xray Comments NAME: MARIE SANTANA [facility] REC#: [id number] PT STATUS: REG ER : 1980 PHYSICIAN: SHERON MAHER APRN ADMIT DATE: 06/12/17/ER Signed Date of Exam:06/12/17 CHEST PA/LAT (2 VIEW) EXAMINATION: PA and lateral views of the chest. INDICATION: Shortness of breath. FINDINGS: The lungs are clear of focal infiltrates or vascular congestion. The heart size is normal. There is no effusion or pneumothorax. The mediastinum and brie appear unremarkable. Minimal interstitial scarring in the lateral aspect of the left lower lobe is seen. This is similar to 10/12/2016. IMPRESSION: No acute process. Dictated by: Dictated on workstation # [id number] Dict: 06/12/17 1204 Trans: 06/12/17 1211 [id number] Interpreted by: POLA ELDRIDGE MD Electronically signed by: POLA ELDRIDGE MD 06/12/17 1211 Departure Communication (Admissions) Time/Spoke to Admitting Phy: 12:[address] Abdi. We'll admit the patient mat protocol, IV steroids, supplemental oxygen. Oxygen saturation is 98 percent on 2 L. He reports significant improvement in her subjective dyspnea after a DuoNeb treatment. She has more wheezing at this point likely just because she is moving more air. Phenergan with codeine given for cough. Impression Impression: Primary Impression: Asthma exacerbation Disposition: ADMITTED INPATIENT Condition: Improved Admissions Decision to Admit Reason: Admit from ER (General) Decision to Admit/Date: Jun 12, 2017 Time/Decision to Admit Time: 12:15 Departure-Patient Inst. Referrals: ALICIA LOVE DO (PCP/Family) Primary Care Physician SHERON MAHER APRN Jun 12, 2017 11:35
[2017-06-12] MEDS ORDERED: AZIT250T12 PO (11:38)
[2017-06-12] MEDS ORDERED: PRD20T PO (11:38)
[2017-06-12 11:40] LABS: BASOPHILS # (AUTO) 0.1 10^3/uL (0.0-0.1); BASOPHILS % (AUTO) 1 % (0-10); EOSINOPHILS % (AUTO) 0 % (0-10); LYMPHOCYTES # (AUTO) 1.3 X 10^3 (1.0-4.0); LYMPHOCYTES % (AUTO) 11 % (12-44); MEAN CORPUSCULAR HEMOGLOBIN 30 PG (25-34); MEAN CORPUSCULAR HGB CONC 34 G/DL (32-36); MEAN CORPUSCULAR VOLUME 89 FL (80-99); MEAN PLATELET VOLUME 9.9 FL (7.4-10.4); MONOCYTES # (AUTO) 0.6 X 10^3 (0.0-1.0); MONOCYTES % (AUTO) 5 % (0-12); NEUTROPHILS # (AUTO) 10.6 X 10^3 (1.8-7.8); NEUTROPHILS % (AUTO) 84 % (42-75); PLATELET COUNT 312 10^3/uL (130-400); RED BLOOD COUNT 5.19 10^6/uL (4.35-5.85); RED CELL DISTRIBUTION WIDTH 12.4 % (10.0-14.5); WHITE BLOOD COUNT 12.6 10^3/uL (4.3-11.0)
[2017-06-12 11:58] LABS: BILIRUBIN,URINE NEGATIVE (NEGATIVE); KETONES,URINE NEGATIVE (NEGATIVE); LEUKOCYTE ESTERASE ,URINE NEGATIVE (NEGATIVE); NITRITE,URINE NEGATIVE (NEGATIVE); PH,URINE 8 (5-9); PROTEIN,URINE 3+ (NEGATIVE); UROBILINOGEN,URINE NORMAL (NORMAL)
[2017-06-12 12:05] LABS: ANION GAP 12 MMOL/L (5-14); BLOOD UREA NITROGEN 11 MG/DL (7-18); BUN/CREATININE RATIO 14; CALCIUM 9.3 MG/DL (8.5-10.1); CARBON DIOXIDE 23 MMOL/L (21-32); CHLORIDE 107 MMOL/L (98-107); CREATININE SERUM 0.76 MG/DL (0.60-1.30); GFR ESTIMATED > 60; GLUCOSE 102 MG/DL (70-105); POTASSIUM 3.6 MMOL/L (3.6-5.0); SODIUM 142 MMOL/L (135-145)
[2017-06-12 12:09] LABS: SQUAMOUS EPITHELIAL CELL,UR 0-2 /HPF
--- NOTE | 2017-06-12 12:09 | Diagnostic Imaging Report ---
EXAMINATION: PA and lateral views of the chest. INDICATION: Shortness of breath. FINDINGS: The lungs are clear of focal infiltrates or vascular congestion. The heart size is normal. There is no effusion or pneumothorax. The mediastinum and brie appear unremarkable. Minimal interstitial scarring in the lateral aspect of the left lower lobe is seen. This is similar to 10/12/2016. IMPRESSION: No acute process. Dictated by: Dictated on workstation # [id number]
[2017-06-12] MEDS ORDERED: PROMETHAZINE/ CODEINE SYRUP 5 ML UDC PO PRN (13:00)
[2017-06-12] MEDS ORDERED: CATHETER FLUSH 10 ML SYR IV PRN (13:00)
[2017-06-12] MEDS ORDERED: RT-ALBUINH INH (13:30)
[2017-06-12] MEDS ORDERED: HYDR-3816 PO (13:30)
[2017-06-12] MEDS ORDERED: FLUT1DIS28 INH (13:30)
[2017-06-12] MEDS: CATHETER FLUSH 10 ML SYR IV SCH ×2 (14:40→21:47)
[2017-06-12 15:58] VITALS: BP 147/100
[2017-06-12 16:00] VITALS: BP 132/85
[2017-06-12] MEDS ORDERED: RT-ALBUTEROL SULF 2.5 MG/3 ML PRE-MIX VIAL IH PRN (16:15)
[2017-06-12 19:48] VITALS: BP 131/85
[2017-06-12] MEDS: RT-ALBUTEROL SULF 2.5 MG/3 ML PRE-MIX VIAL IH SCH (21:46)
[2017-06-12] MEDS: methylPREDNISolone 125 MG (Solu-MEDROL) VIAL IV SCH (21:47)
[2017-06-13 00:25] VITALS: BP 146/88
[2017-06-13] MEDS: RT-ALBUTEROL SULF 2.5 MG/3 ML PRE-MIX VIAL IH SCH ×2 (02:59→10:22)
[2017-06-13 04:00] VITALS: BP 144/74
[2017-06-13] MEDS: methylPREDNISolone 125 MG (Solu-MEDROL) VIAL IV SCH (05:18)
[2017-06-13] MEDS: CATHETER FLUSH 10 ML SYR IV SCH (05:41)
[2017-06-13 07:59] VITALS: BP 162/87
[2017-06-13] MEDS ORDERED: amLODIPine 5 MG (NORVASC) TAB PO SCH (09:00)
[2017-06-13] MEDS ORDERED: LEVOTHYROXINE 75 MCG (LEVOTHROID) TABLET PO SCH (09:00)
[2017-06-13] MEDS ORDERED: HYDROcodone/APAP 7.5 MG/325 MG (LORTAB, LORCET PLUS) TABLET PO PRN (09:00)
[2017-06-13] MEDS ORDERED: RT-ALBUTEROL SULF 2.5 MG/3 ML PRE-MIX VIAL IH PRN (09:15)
[2017-06-13] MEDS ORDERED: TRIAMTERENE/HCTZ 75-50 (MAXZIDE,DYAZIDE) TABLET PO SCH (09:15)
--- NOTE | 2017-06-13 11:08 | Short Stay Summary-Hospitalist ---
HPI History of Present Illness: HPI/Chief Complaint CC: SOB HPI: This is a 37 yoWF pt of mine for the last 12 years who presented to the ER after SOB worsened to the point the she could not come to clinic as scheduled in [place] this afternoon. She has a hx of severe asthma requiring hospitalization on 10/13/16. She went to [facility] this weekend and was placed on Z- max and steroids but failed this treatment, and has now required IV steroids and admission. CXR negative, labs normal except elevated WBC of 12. D- dimer negative despite recent foot surgery with Dr. Jackson. Patient Interview: Pt is feeling better today. Allergies discussed. Pt confirms having allergy testing at Dr. Ramirez office years ago and was advised to start allergy injections. Pt states that she did not go through with the injections. Pt believes that she needs to see Dr. Booker again. Pt confirms having last been at [facility] in October. Pt confirms being compliant with her medications and started meds from [facility]. These have not helped as of late. Pt confirms coughing up mucus and sweating profusely. Physical exam stable. Pt denies having her own breathing treatments at home but she states her daughter has a breathing machine. Pt was informed that she can use the same machine, she will just need a different tube. Pt confirms [facility] as pharmacy Pt confirms having her BP meds and was given thyroid meds. Pt states she has one more day of Azithromycin. Scribed by Leticia Jean-Baptiste under the direct supervision of Dr. Love. 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) Alcohol Use: Rarely Uses Number of Drinks Today: 1 Recreational Drug Use: No Smoking Status: Former Smoker Former Smoker, Quit: Oct 01, 2006 Type Used: Cigarettes Physical Abuse Screen: No Sexual Abuse: No Recent Foreign Travel: No Contact w/other who traveled: No Recent Hopitalizations: Yes (PLANTAR FACITIS) Recent Infectious Disease Expo: No Immunizations Up To Date Tetanus Booster (TDap): Unknown Pediatric: Yes Date of Influenza Vaccine: Oct 13, 2016 Seasonal Allergies Seasonal Allergies: Yes Surgeries Yes (acl repair, knee scope, discectomy X2, wisdom teeth removed ) Gallbladder Respiratory Yes (SEASONAL ALLERGIES) Asthma Currently Using CPAP: No Currently Using BIPAP: No Cardiovascular Yes Hypertension Neurological Yes (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) Reproductive System Last Menstrual Period: May 14, 2017 Hx Reproductive Disorders: No (DUB, POLYP) Sexually Transmitted Disease: No HIV/AIDS: No Female Reproductive Disorders: Menstrual Problems Genitourinary No Gastrointestinal Yes Irritable Bowel Musculoskeletal Yes (herniated l4-l5--back discectomy 2010; LEFT ACL, knee scope, ) Fractures Endocrine History of Endocrine Disorders: Yes Endocrine Disorders: Hypothyroidsim HEENT History of HEENT Disorders: No Loss of Vision: Bilateral Hearing Impairment: Denies Cancer No Psychosocial History of Psychiatric Problem: No Integumentary History of Skin or Integumenta: No (hx skin fungus) Blood Transfusions History of Blood Disorders: Yes (HX OF ANEMIA) Adverse Reaction to a Blood Tr: No (N/A) Family Medical History Family Hx: Family history: Cardiovascular disease 03 FATHER Family history: Hypertension 03 MOTHER Headache disorder 03 FATHER (had brain tumor) 09 SISTER Myocardial infarction 03 FATHER Review of Systems Constitutional: see HPI, dizziness EENTM: no symptoms reported Respiratory: cough, dyspnea on exertion, short of breath, wheezing Cardiovascular: no symptoms reported Gastrointestinal: no symptoms reported Genitourinary: no symptoms reported Musculoskeletal: no symptoms reported Skin: no symptoms reported Psychiatric/Neurological: No Symptoms Reported All Other Systems Reviewed Negative Unless Noted: Yes Physical Exam Physical Exam Vital Signs Vital Sign - Last 12Hours 06/12/17 06/12/17 06/12/17 11:25 11:29 15:58 Temp 99.1 Pulse 120 Resp 28 B/P (MAP) 147/100 Pulse Ox 91 O2 Delivery Room Air O2 Flow Rate 2.00 FiO2 2 Capillary Refill : Less Than 3 Seconds General Appearance: No Apparent Distress, WD/WN Eyes: Bilateral Eye Normal Inspection, Bilateral Eye PERRL HEENT: PERRL/EOMI, Normal ENT Inspection, Pharynx Normal Neck: Full Range of Motion, Normal Inspection, Non Tender, Supple, Carotid Bruit Respiratory: Chest Non Tender, Lungs Clear, No Accessory Muscle Use, No Respiratory Distress, Decreased Breath Sounds, Other (improved wheezing) Cardiovascular: Regular Rate, Rhythm, No Edema, No Gallop, No JVD, No Murmur, Normal Peripheral Pulses Gastrointestinal: Normal Bowel Sounds, No Organomegaly, No Pulsatile Mass, Non Tender, Soft Back: Normal Inspection, No CVA Tenderness, No Vertebral Tenderness Extremity: Normal Capillary Refill, Normal Inspection, Normal Range of Motion, Non Tender, No Calf Tenderness, No Pedal Edema Neurologic/Psychiatric: Alert, Oriented x3, No Motor/Sensory Deficits, Normal Mood/Affect Skin: Normal Color, Warm/Dry Lymphatic: No Adenopathy Results Results/Procedures Lab Laboratory Tests 06/12/17 11:25 Short Stay Diagnosis Discharge Diagnosis-Short Stay Admission Diagnosis Assessment: Severe asthma exacerbation refractory to by mouth outpatient meds requiring IV steroids Recent bronchitis Recent foot surgery d-dimer negative no indication for CT angiogram Hypertension Hypothyroidism Obesity Final Discharge Diagnosis Assessment: Severe asthma exacerbation refractory to by mouth outpatient meds requiring IV steroids Recent bronchitis Recent foot surgery d-dimer negative no indication for CT angiogram Hypertension Hypothyroidism Obesity Conclusion Plan Plan: Albuterol, neb treatments Repeat allergy testing with Dr. Booker Follow up with me tomorrow afternoon, 06/14/17 Albuterol Neb treatments to begin Steroids Clinical Quality Measures DVT/VTE Risk/Contraindication: Risk Factor Score Per Nursin RFS Level Per Nursing on Admit: 2=Moderate CINDY LOVE DO Jun 13, 2017 11:08
[2017-06-13] MEDS ORDERED: PRED10TA22 PO (11:11)
[2017-06-13] MEDS ORDERED: ALBU2.5V4 IH (11:11)
[2017-06-13] MEDS ORDERED: CODE118S2 PO (11:11)
[2017-06-13 11:40] VITALS: BP 162/87
[2017-06-13] MEDS ORDERED: RT-ADVAIR HFA 45/21 MCG PER PUFF IH SCH (20:00)
[2017-06-13] MEDS ORDERED: ETHINYL ESTRADIOL PO SCH (21:00)
[2017-06-13] MEDS ORDERED: MONTELUKAST 10 MG (SINGULAIR) TAB PO SCH (21:00)
[2017-06-13] MEDS ORDERED: NORGESTIMATE PO SCH (21:00)
[2017-06-13] MEDS ORDERED: [UNRECOGNIZED DRUG - OTHER] PO SCH (21:00)
== END 2017-06-13 11:11 | disposition home or self-care (01) ==
LOC: EDUNIT# 11:20 → ER 11:22 → UNDOADMOB 11:41 → 4TH 11:41 → UNDODISOB 06-13 11:40
PROVIDERS: ADMIT Internal Medicine; ATTEND Internal Medicine
DX: J45.901 Unspecified asthma with (acute) exacerbation (principal); E03.9 Hypothyroidism, unspecified; I10 Essential (primary) hypertension; E66.9 Obesity, unspecified; Z79.899 Other long term (current) drug therapy
CPT/HCPCS: 36415; 71020; 80048; 81000; 84703; 85025; 85379; 94150; 94640; 94760; 96374; G0378

== ENCOUNTER → 2018-11-28 | Outpatient (REF) ==
[~2018-11-28] MED LIST changes: +ALBU2.5V4 IH; +AMLO5TAB9 PO; +AZIT250T12 PO; +CODE118S4 PO; +FLUT1DIS28 INH; +HYDR-34 PO; -OXYC-197 PO; -OXYC-202 PO; +OXYC1TAB87 PO; +PRED10TA22 PO; +RT-ALBUINH INH
--- NOTE | 2018-11-28 15:58 | Diagnostic Imaging Report ---
INDICATION: Left knee pain, twisted knee. AP, oblique, and lateral views of the left knee are obtained. There is no prior study for comparison. Screws are in place in the configuration of prior ACL repair. There is no acute fracture or acute bony abnormality seen. There is a calcification overlying the medial joint space on the AP view, not visualized on the lateral view. Loose body is not entirely excluded. There is no significant joint effusion. IMPRESSION: Postop changes status post prior ACL repair. No acute fracture or overt joint effusion. Questionable calcification overlying the medial joint space on the AP view, not seen on the lateral view, loose body not entirely excluded. Dictated by: Dictated on workstation # [id number]
== END | disposition home or self-care (01) ==
LOC: RAD 15:32
PROVIDERS: ATTEND Family Medicine
CPT/HCPCS: 73562

== ENCOUNTER → 2018-11-28 | Outpatient (CLI) | payer BC ==
--- NOTE | 2018-11-28 20:39 | Diagnostic Imaging Report ---
INDICATION: Digital mammogram bilateral screening with 3-D tomosynthesis and CAD. The current study was also evaluated with a Computer Aided Detection (CAD) system. This is the patient's baseline study. At this time, there are no current complaints. FINDINGS: The fibroglandular tissue in both breasts is heterogeneously dense. This does limit the sensitivity of this exam. There is no primary or secondary sign of malignancy noted. IMPRESSION: There is no evidence of malignancy. ACR BI-RADS Category 1: Negative. Result letter will be mailed to the patient. Note: At least 10% of breast cancer is not imaged by mammography. Dictated by: Dictated on workstation # [id number]
== END ==
LOC: RAD 07:10
PROVIDERS: ATTEND Obstetrics & Gynecology
DX: Z12.31 Encounter for screening mammogram for malignant neoplasm of breast (principal)
CPT/HCPCS: 77067

== ENCOUNTER → 2019-02-04 | Outpatient (CLI) | payer BC, OTHER ==
--- NOTE | 2019-02-04 12:57 | Diagnostic Imaging Report ---
EXAMINATION: Magnetic resonance imaging of the left knee without intravenous contrast. DATE: February 04, 2019. COMPARISON: Left knee radiographs of November 28, 2018. INDICATION: 38-year-old female, left knee pain. Injury in November 2018. Swelling, catching, locking. History of prior anterior cruciate ligament reconstruction in 1996. TECHNIQUE: Multiplanar/multisequence noncontrast enhanced MR imaging was accomplished. FINDINGS: MENISCI: The medial meniscus is intact. The lateral meniscus is intact. LIGAMENTS AND TENDONS: The patient is status post anterior cruciate ligament reconstruction with intact graft. The posterior cruciate ligament is intact. The medial collateral ligament is intact. The iliotibial band, mid third lateral capsular ligament, fibular collateral ligament, biceps femoris tendon, and conjoined tendon are intact. The quadriceps tendon and patella ligament are intact. JOINT: There is superficial irregularity and fissuring of the cartilage of the medial patellar facet. The medial and lateral compartment cartilage is grossly intact. There is no knee joint effusion, prominent synovitis, or intra-articular body. BONE: There is unremarkable bone marrow signal. Specifically, negative for fracture, osteomyelitis, osteonecrosis, or marrow replacing process. BURSAE AND SOFT TISSUES: No Bakers cyst. IMPRESSION: 1. Status post anterior cruciate ligament reconstruction with intact graft. Intact posterior cruciate ligament. Additional ligaments and tendons are intact. 2. Intact medial and lateral meniscus. 3. Mild patellofemoral compartment osteoarthritis. No knee joint effusion, prominent synovitis, or intra-articular body. 4. No acute fracture, bone contusion, or evidence of osteonecrosis. Dictated by: Dictated on workstation # [id number]
== END ==
LOC: RAD 09:08
PROVIDERS: ATTEND Family Medicine
DX: M23.92 Unspecified internal derangement of left knee (principal); M17.12 Unilateral primary osteoarthritis, left knee
CPT/HCPCS: 73721

== ENCOUNTER 2019-02-11 14:30 | Emergency (ER) | payer OTHER ==
[~2019-02-11] VITALS: Ht 162.6 cm; Wt 124.7 kg
--- NOTE | 2019-02-11 14:43 | ED Lower Extremity ---
General Chief Complaint: Lower Extremity Stated Complaint: R ANKLE INJ Source: patient Exam Limitations: no limitations History of Present Illness Date Seen by Provider: February 11, 2019 Time Seen by Provider: 14:42 Initial Comments To ER with right lateral ankle pain and swelling after she stepped off into a hole in the road just prior to arrival while at work. 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 Onset: just prior to arrival Severity: moderate Pain/Injury Location: right ankle Method of Injury: fell, twisted Modifying Factors: Worse With Movement Allergies and Home Medications Allergies Coded Allergies: sumatriptan (Verified Allergy, Unknown, 06/05/17) Home Medications Albuterol Sulfate 6.7 Gm Hfa.aer.ad, 2 PUFF INH Q6H PRN for SHORTNESS OF BREATH, (Reported) Albuterol Sulfate 2.5 Mg/3 Ml Vial.neb, 2.5 MG IH RTQ6HR Prescribed by: ALICIA LOVE on 06/13/17 1111 Amlodipine Besylate 5 Mg Tablet, 5 MG PO DAILY, (Reported) Azithromycin 250 Mg Tablet, PO UD, (Reported) #6 TABS 5 DAY SUPPLY FILLED 06-10-17 Fluticasone/Salmeterol 1 Each Blst.w.dev, 1 PUFF INH BID, (Reported) Hydrocodone Bit/Acetaminophen 1 Each Tablet, 1 TAB PO EVERY 4-6 HOURS PRN for PAIN-MODERATE, (Reported) Hydrocodone/Acetaminophen 1 Each Tablet, 1 TAB PO Q4-6HR Prescribed by: SHERON MAHER on 02/11/19 1454 Levothyroxine Sodium 75 Mcg Tablet, 75 MCG PO DAILY, (Reported) Montelukast Sodium 10 Mg Tablet, 10 MG PO HS, (Reported) Norgestimate-Ethinyl Estradiol 1 Each Tablet, 1 TAB PO HS, (Reported) Prednisone 20 Mg Tab, 40 MG PO DAILY, (Reported) TAKES 2 (20MG) TABLETS X 4 DAYS FILLED 06-11-17 Prednisone 10 Mg Tab.ds.pk, 20 MG PO DAILY Take 6 tabs(60mg)daily,decrease by 1 tab(10MG)daily. Prescribed by: ALICIA LOVE on 06/13/17 1111 Promethazine HCl/Codeine 118 Ml Syrup, 5 ML PO Q4H PRN for COUGH Prescribed by: ALICIA LOVE on 06/13/17 1111 Triamterene/Hydrochlorothiazid 1 Each Capsule, 1 CAP PO DAILY, (Reported) Patient Home Medication List Home Medication List Reviewed: Yes Review of Systems Constitutional: see HPI EENTM: see HPI Respiratory: no symptoms reported Cardiovascular: no symptoms reported Genitourinary: no symptoms reported Musculoskeletal: see HPI Skin: no symptoms reported Psychiatric/Neurological: No Symptoms Reported Past Wpizwhx-Gasyev-Osbdel Hx Patient Social History Type Used: Cigarettes Former Smoker, Quit: Oct 01, 2006 Recent Hopitalizations: Yes (PLANTAR FACITIS) Immunizations Up To Date Tetanus Booster (TDap): Unknown PED Vaccines UTD: Yes Date of Influenza Vaccine: Oct 13, 2016 Seasonal Allergies Seasonal Allergies: Yes Past Medical History Surgeries: Yes (acl repair, knee scope, discectomy X2, wisdom teeth removed ) Gallbladder Respiratory: Yes (SEASONAL ALLERGIES) Asthma, Pneumonia Currently Using CPAP: No Currently Using BIPAP: No Cardiac: Yes Hypertension 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) Reproductive Disorders: No (DUB, POLYP) Female Reproductive Disorders: Menstrual Problems Sexually Transmitted Disease: No HIV/AIDS: No Genitourinary: No Gastrointestinal: Yes Irritable Bowel Musculoskeletal: Yes (herniated l4-l5--back discectomy 2010; LEFT ACL, knee scope, ) Fractures Endocrine: Yes Hypothyroidsim HEENT: No Loss of Vision: Bilateral Hearing Impairment: Denies Cancer: No Psychosocial: No Integumentary: No (hx skin fungus) Blood Disorders: Yes (HX OF ANEMIA) Adverse Reaction/Blood Tranf: No (N/A) Family Medical History Family history: Cardiovascular disease 03 FATHER Family history: Hypertension 03 MOTHER Headache disorder 03 FATHER (had brain tumor) 09 SISTER Myocardial infarction 03 FATHER Physical Exam Vital Signs Vital Signs - First Documented 02/11/19 14:34 Temp 99.2 Pulse 94 Resp 18 B/P (MAP) 172/91 (118) Pulse Ox 98 O2 Delivery Room Air Capillary Refill : Height, Weight, BMI Height: 5'4.00" Weight: 272lbs. 3.0oz. 123.589549kn; 45.5 BMI Method:Stated General Appearance: WD/WN, no apparent distress HEENT: PERRL/EOMI, normal ENT inspection Respiratory: no respiratory distress, no accessory muscle use Hips: bilateral hip non-tender, bilateral hip normal inspection, bilateral hip normal range of motion Legs: bilateral leg non-tender, bilateral leg normal inspection, bilateral leg normal range of motion Knees: bilateral knee non-tender, bilateral knee normal inspection, bilateral knee normal range of motion Ankles: right ankle pain, right ankle soft tissue tenderness, right ankle swelling (over the lateral malleolus. Dorsalis pedis pulse is less 2, no paresthesias of the toes, full range of motion of the toes.) Neurologic/Psychiatric: alert, normal mood/affect, oriented x 3 Skin: normal color, warm/dry Progress/Results/Core Measures Results/Orders My Orders Orders - SHERON MAHER APRN Hydrocodone/Apap 5/325 Tablet (Lortab 5 (02/11/19 14:45) Ankle, Right, 3 Views (02/11/19 14:40) Medications Given in ED Current Medications Medications Dose Ordered Sig/Sarita Route Start Time Stop Time Status Last Admin Dose Admin Acetaminophen/ Hydrocodone Bitart 1 tab ONCE ONCE PO 02/11/19 14:45 02/11/19 14:46 DC 02/11/19 14:44 1 TAB Vital Signs/I&O 02/11/19 14:34 Temp 99.2 Pulse 94 Resp 18 B/P (MAP) 172/91 (118) Pulse Ox 98 O2 Delivery Room Air Departure Communication (Admissions) She will be given Allan wrap, stirrup splint, crutches, ice pack and follow-up instructions. Impression Primary Impression: Ankle sprain Qualified Codes: S93.411A - Sprain of calcaneofibular ligament of right ankle , initial encounter Disposition: 01 HOME, SELF-CARE Condition: Stable Departure-Patient Inst. Decision time for Depature: 15:43 Referrals: ALICIA LOVE DO (PCP/Family) Primary Care Physician Patient Instructions: Ankle Sprain (DC) Add. Discharge Instructions: 1. Continue to wear the Allan wrap for the next 2-3 days. This will help reduce swelling. Continue to use the stirrup splint for the next 2-3 weeks. Wear this when you're up moving around, you may take it off at night. Use the crutches as needed for pain with weightbearing, when you're able to bear weight without pain you may stop using the crutches. Elevate the foot as much as possible for the first 48 hours to help reduce swelling. Use an ice pack 30 minutes every 1- 2 hours for the first 48 hours to help reduce pain and swelling. If pain persists, follow up with Dr. Love to schedule further evaluation. All discharge instructions reviewed with patient and/or family. Voiced understanding. Scripts Hydrocodone/Acetaminophen (Mulberry 5-325 Tablet) 1 Each Tablet 1 TAB PO Q4-6HR for Pain MDD 10 TABS for 7 Days, #10 TAB Prov: SHERON MAHER APRN 02/11/19 Copy Copies To 1: ALICIA LOVE PETER J APRN February 11, 2019 14:43
[2019-02-11] MEDS ORDERED: HYDROcodone/APAP 5 MG/325 MG (LORTAB) TAB PO ONE (14:45)
[2019-02-11] MEDS ORDERED: HYDR-4226 PO (14:54)
--- NOTE | 2019-02-11 15:18 | Diagnostic Imaging Report ---
INDICATION: Rolled ankle with pain and swelling laterally. TIME OF EXAM: 02:47 p.m. FINDINGS: Three views of the right ankle were obtained. The alignment is normal. Ankle mortise is well-maintained. Talar dome is smooth. There is a curvilinear calcific density adjacent to the tip of the distal fibula consistent with an avulsion fracture fragment. There is a moderate amount of soft tissue swelling about the lateral ankle as well. No other fractures are seen. There is a large plantar calcaneal spur. IMPRESSION: Findings consistent with an acute avulsion fracture of the distal fibula with moderate lateral soft tissue swelling. Dictated by: Dictated on workstation # [id number]
[2019-02-11 16:20] VITALS: BP 155/68
== END 2019-02-11 16:20 | disposition home or self-care (01) ==
LOC: EDUNIT# 14:30 → ER 14:32
DX: S93.411A Sprain of calcaneofibular ligament of right ankle, initial encounter (principal); J45.909 Unspecified asthma, uncomplicated; I10 Essential (primary) hypertension; K58.9 Irritable bowel syndrome, unspecified; E03.9 Hypothyroidism, unspecified; D64.9 Anemia, unspecified; G40.409 Other generalized epilepsy and epileptic syndromes, not intractable, without status epilepticus; Z96.652 Presence of left artificial knee joint; Z87.448 Personal history of other diseases of urinary system; Z98.1 Arthrodesis status; Z79.51 Long term (current) use of inhaled steroids; Z82.49 Family history of ischemic heart disease and other diseases of the circulatory system; Z79.52 Long term (current) use of systemic steroids; Z87.891 Personal history of nicotine dependence; Z98.890 Other specified postprocedural states; Z87.01 Personal history of pneumonia (recurrent); Z88.8 Allergy status to other drugs, medicaments and biological substances; W17.2XXA Fall into hole, initial encounter; Y92.410 Unspecified street and highway as the place of occurrence of the external cause
CPT/HCPCS: 73610

== ENCOUNTER 2020-06-28 05:46 | Observation (INO) | payer BC, OTHER ==
[~2020-06-28] VITALS: Ht 162 cm; Wt 140.0 kg
[~2020-06-28 05:46] MED LIST changes: +HYDR-4226 PO; -MONT10TA24 PO; +MONT10TA26 PO
--- NOTE | 2020-06-28 06:15 | NUR ---
Pt arrives with sudden onset low right back pain that radiates around to RLQ abdominal pain; pt states pain started first and then she started vomiting. Pt reports that she felt like she had a UTI but was unable to empty her bladder. Pt was assisted to restroom for UA but pt was only able to provide a sample of approx. 3ml of urine. Urine was pale yellow. Pt diaphoretic and appears very uncomfortable. Pt vomits green bile-like fluid; ERP aware. IV and labs sent; will continue to monitor.
[2020-06-28] MEDS ORDERED: KETOROLAC 30 MG/ML VIAL IVP STA (06:20)
[2020-06-28] MEDS ORDERED: LACTATED RINGERS 1,000 ML IV STA (06:20)
[2020-06-28] MEDS ORDERED: fentaNYL INJECTION 100 MCG/2 ML AMP IVP STA ×2 (06:20→08:07)
--- NOTE | 2020-06-28 06:26 | ED Abdominal Pain ---
General Chief Complaint: Abdominal/GI Problems Stated Complaint: RLQ PAIN,N/V Nursing Triage Note: Pt here with onset of right lower back pain that radiated around to her lower right quadrant and then started vomiting. Onset 0100 today. Sepsis Screen: No Definite Risk Source of Information: Patient Exam Limitations: No Limitations History of Present Illness Date Seen by Provider: Jun 28, 2020 Time Seen by Provider: 06:10 Initial Comments Here with report of right flank pain that radiated to the right lower quadrant. States it actually started as right low back pain at 1 AM. She took some ibuprofen and used a heating pad and that helped a little bit. She then woke up about an hour later and was vomiting and pain persisted. States that now it's persistently in the right lower quadrant and she still has nausea and vomiting. Denies diarrhea. Denies blood in her vomit. No fever or chills. No other recent illness and states that last night when she went to bed she was feeling pretty good. Timing/Duration: 4-6 Hours Severity/Quality: Moderate, Severe Location: RLQ, Flank Radiation: Back Activities at Onset: None Modifying Factors: Improves With Resting Associated Symptoms: Back Pain; No Chest Pain, No Fever/Chills; Nausea/Vomiting; No Shortness of Air, No Swelling/Mass in Abdomen, No Weakness Allergies and Home Medications Allergies Coded Allergies: sumatriptan (Verified Allergy, Unknown, 06/05/17) Home Medications Acetaminophen 500 Mg Tablet, 1,000 MG PO Q8H PRN for PAIN-MILD (1-4), (Reported) TAKES 2 (500MG) TABLETS Albuterol Sulfate 6.7 Gm Hfa.aer.ad, 2 PUFF INH Q6H PRN for SHORTNESS OF BREATH, (Reported) Amlodipine Besylate 5 Mg Tablet, 5 MG PO DAILY, (Reported) Cetirizine HCl 10 Mg Tablet, 10 MG PO DAILY, (Reported) Ibuprofen 200 Mg Tablet, 800 MG PO Q6H PRN for PAIN-MILD (1-4), (Reported) TAKES 4 (200MG) TABLETS Levothyroxine Sodium 125 Mcg Tablet, 125 MCG PO DAILY, (Reported) Losartan Potassium 100 Mg Tablet, 100 MG PO DAILY, (Reported) Montelukast Sodium 10 Mg Tablet, 10 MG PO HS, (Reported) Norgestimate-Ethinyl Estradiol 1 Each Tablet, 1 EACH PO 2100, (Reported) Patient Home Medication List Home Medication List Reviewed: Yes Review of Systems Review of Systems Constitutional: see HPI; No chills, No fever EENTM: No Symptoms Reported Respiratory: No Symptoms Reported Cardiovascular: No Symptoms Reported Gastrointestinal: Abdominal Pain; Denies Nausea, Denies Vomiting Genitourinary: Frequency, Flank Pain Musculoskeletal: back pain; No muscle stiffness Skin: no symptoms reported Psychiatric/Neurological: No Symptoms Reported Past Boagfts-Ltxidd-Dgkmzh Hx Past Med/Social Hx: Reviewed Nursing Past Med/Soc Hx Patient Social History Alcohol Use: Occasionally Uses Recreational Drug Use: No Smoking Status: Former Smoker Type Used: Cigarettes Former Smoker, Quit: Oct 01, 2006 Recent Foreign Travel: No Contact w/Someone Who Travel: No Recent Infectious Disease Expo: No Recent Hopitalizations: Yes (PLANTAR FACITIS) Immunizations Up To Date Tetanus Booster (TDap): Unknown PED Vaccines UTD: Yes Date of Influenza Vaccine: Oct 13, 2016 Seasonal Allergies Seasonal Allergies: Yes Past Medical History Surgeries: Yes (acl repair, knee scope, discectomy X2, wisdom teeth removed ) Gallbladder Respiratory: Yes (SEASONAL ALLERGIES) Asthma, Pneumonia Currently Using CPAP: No Currently Using BIPAP: No Cardiac: Yes Hypertension 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) Reproductive Disorders: No (DUB, POLYP) Female Reproductive Disorders: Menstrual Problems Sexually Transmitted Disease: No HIV/AIDS: No Genitourinary: No Gastrointestinal: Yes Irritable Bowel Musculoskeletal: Yes (herniated l4-l5--back discectomy 2010; LEFT ACL, knee scope, ) Fractures Endocrine: Yes Hypothyroidsim HEENT: No Loss of Vision: Bilateral Hearing Impairment: Denies Cancer: No Psychosocial: No Integumentary: No (hx skin fungus) Blood Disorders: Yes (HX OF ANEMIA) Adverse Reaction/Blood Tranf: No (N/A) Family Medical History Reviewed Nursing Family Hx Family history: Cardiovascular disease 03 FATHER Family history: Hypertension 03 MOTHER Headache disorder 03 FATHER (had brain tumor) 09 SISTER Myocardial infarction 03 FATHER Physical Exam Vital Signs Vital Signs - First Documented 06/28/20 06:09 Temp 37.1 Pulse 86 Resp 20 B/P (MAP) 186/107 (133) Pulse Ox 96 O2 Delivery Room Air Capillary Refill : Less Than 3 Seconds Height/Weight/BMI Height: 5'4.00" Weight: 275lbs. 3.0oz. 124.684131gx; 53.00 BMI Method:Stated General Appearance: WD/WN, no apparent distress, obese Neck: full range of motion, supple Respiratory: lungs clear, normal breath sounds Cardiovascular: no murmur, tachycardia Peripheral Pulses: 2+ Dorsalis Pedis (R), 2+ Left Dors-Pedis (L), 2+ Radial Pulses (R), 2+ Radial Pulses (L) Gastrointestinal: soft; No guarding, No rebound; tenderness (right-sided flank and right lower quadrant) Extremities: non-tender, normal inspection Back: normal inspection, no CVA tenderness, no vertebral tenderness Neurologic/Psychiatric: alert, oriented x 3 Skin: normal color, warm/dry Progress/Results/Core Measures Results/Orders Lab Results Laboratory Tests Test 06/28/20 06:00 Range/Units White Blood Count 10.0 4.3-11.0 10^3/uL Red Blood Count 4.53 3.80-5.11 10^6/uL Hemoglobin 13.4 11.5-16.0 g/dL Hematocrit 41 35-52 % Mean Corpuscular Volume 90 80-99 fL Mean Corpuscular Hemoglobin 30 25-34 pg Mean Corpuscular Hemoglobin Concent 33 32-36 g/dL Red Cell Distribution Width 12.4 10.0-14.5 % Platelet Count 316 130-400 10^3/uL Mean Platelet Volume 10.4 9.0-12.2 fL Immature Granulocyte % (Auto) 1 % Neutrophils (%) (Auto) 63 42-75 % Lymphocytes (%) (Auto) 27 12-44 % Monocytes (%) (Auto) 7 0-12 % Eosinophils (%) (Auto) 3 0-10 % Basophils (%) (Auto) 0 0-10 % Neutrophils # (Auto) 6.3 1.8-7.8 10^3/uL Lymphocytes # (Auto) 2.7 1.0-4.0 10^3/uL Monocytes # (Auto) 0.7 0.0-1.0 10^3/uL Eosinophils # (Auto) 0.3 0.0-0.3 10^3/uL Basophils # (Auto) 0.0 0.0-0.1 10^3/uL Immature Granulocyte # (Auto) 0.1 0.0-0.1 10^3/uL Urine Color YELLOW Urine Clarity CLOUDY Urine pH 6.0 5-9 Urine Specific [place] >=1.030 1.016-1.022 Urine Protein 1+ H NEGATIVE Urine Glucose (UA) NEGATIVE NEGATIVE Urine Ketones NEGATIVE NEGATIVE Urine Nitrite NEGATIVE NEGATIVE Urine Bilirubin NEGATIVE NEGATIVE Urine Urobilinogen 0.2 < = 1.0 MG/DL Urine Leukocyte Esterase NEGATIVE NEGATIVE Urine RBC (Auto) NEGATIVE NEGATIVE Urine RBC NONE /HPF Urine WBC 0-2 /HPF Urine Squamous Epithelial Cells 2-5 /HPF Urine Crystals NONE /LPF Urine Bacteria TRACE /HPF Urine Casts PRESENT /LPF Urine Granular Casts 0-2 H /LPF Urine Mucus NEGATIVE /LPF Urine Culture Indicated NO Sodium Level 138 135-145 MMOL/L Potassium Level 3.7 3.6-5.0 MMOL/L Chloride Level 108 H 98-107 MMOL/L Carbon Dioxide Level 18 L 21-32 MMOL/L Anion Gap 12 5-14 MMOL/L Blood Urea Nitrogen 12 7-18 MG/DL Creatinine 1.00 0.60-1.30 MG/DL Estimat Glomerular Filtration Rate > 60 BUN/Creatinine Ratio 12 Glucose Level 125 H 70-105 MG/DL Calcium Level 8.3 L 8.5-10.1 MG/DL Corrected Calcium 8.5 8.5-10.1 MG/DL Total Bilirubin 0.5 0.1-1.0 MG/DL Aspartate Amino Transf (AST/SGOT) 16 5-34 U/L Alanine Aminotransferase (ALT/SGPT) 19 0-55 U/L Alkaline Phosphatase 84 40-136 U/L C-Reactive Protein High Sensitivity 0.86 H 0.00-0.50 MG/DL Total Protein 6.8 6.4-8.2 GM/DL Albumin 3.7 3.2-4.5 GM/DL Serum Test, Qualitative NEGATIVE NEGATIVE My Orders Orders - NAS SWEENEY MD Cbc With Automated Diff (06/28/20 06:20) Comprehensive Metabolic Panel (06/28/20 06:20) Hs C Reactive Protein (06/28/20 06:20) Hcg,Qualitative Serum (06/28/20 06:20) Ua Culture If Indicated (06/28/20 06:20) Fentanyl Injection (Sublimaze Injection (06/28/20 06:20) Ketorolac Injection (Toradol Injection) (9/28/20 06:20) Ondansetron Injection (Zofran Injectio (06/28/20 06:30) Lactated Ringers (Lr 1000 Ml Iv Solution (06/28/20 06:20) Ed Iv/Invasive Line Start (06/28/20 06:20) Ct Abd/Pelv W (Appendicitis) (06/28/20 06:57) Iohexol Injection (Omnipaque 350 Mg/Ml 1 (06/28/20 07:15) Received Contrast (Hold Metformin- Contr (06/28/20 07:15) Ns (Ivpb) (Sodium Chloride 0.9% Ivpb Bag (06/28/20 07:15) Fentanyl Injection (Sublimaze Injection (06/28/20 08:07) Ed Iv/Invasive Line Start (06/28/20 08:07) Ondansetron Injection (Zofran Injectio (06/28/20 08:15) Ns Iv 1000 Ml (Sodium Chloride 0.9%) (06/28/20 08:07) Promethazine Injection (Phenergan Injec (06/28/20 09:08) Medications Given in ED Current Medications Medications Dose Ordered Sig/Sarita Route Start Time Stop Time Status Last Admin Dose Admin Iohexol 100 ml ONCE ONCE IV 06/28/20 07:15 06/28/20 07:17 DC 06/28/20 07:35 100 ML Ondansetron HCl 4 mg ONCE ONCE IVP 06/28/20 06:30 06/28/20 06:31 DC 06/28/20 06:38 4 MG Ondansetron HCl 4 mg ONCE ONCE IVP 06/28/20 08:15 06/28/20 08:16 DC 06/28/20 08:21 4 MG Sodium Chloride 100 ml ONCE ONCE IV 06/28/20 07:15 06/28/20 07:17 DC 06/28/20 07:35 80 ML Vital Signs/I&O 06/28/20 06:09 Temp 37.1 Pulse 86 Resp 20 B/P (MAP) 186/107 (133) Pulse Ox 96 O2 Delivery Room Air Blood Pressure Mean: 133 Progress Progress Note : Progress Note Seen and evaluated. IV, labs, UA, LR 1 L bolus, Zofran 4 mg IV, Toradol 30 mg IV and fentanyl 50 g IV ordered. Monitor patient. 0730: There is no blood in the urine. CT abdomen pelvis ordered rule out appendicitis although kidney stone still in the differential. Monitor patient. 0803: CT results reveal patient does have right distal ureteral stone. Patient is currently having more pain. We will repeat fentanyl dose and give another liter of fluid before discharged home. 0910: Patient is vomiting again. Phenergan 25 mg IV ordered. Patient's primary care provider called and she will go ahead and put her in observation status. She will write orders. I discussed this with the patient and she agrees to plan. Diagnostic Imaging Diagonstic Imaging: CT Plain Films/CT/US/NM/MRI: abdomen, pelvis Comments [facility]. [place], [place] NAME: MARIE SANTANA [facility] REC#: [id number] PT STATUS: REG ER : 1980 PHYSICIAN: NSA SWEENEY MD ADMIT DATE: 06/28/20/ER Draft Date of Exam:06/28/20 CT ABD/PELV W (APPENDICITIS) PROCEDURE: CT abdomen and pelvis with contrast, rule out appendicitis. TECHNIQUE: Multiple contiguous axial images were obtained through the abdomen and pelvis after the administration of intravenous contrast. All CT scans use one or more of the following dose optimizing techniques: automated exposure control, MA and/or KvP adjustment based on patient size and exam type or iterative reconstruction. INDICATION: Right flank pain radiating to the right lower abdominal quadrant. COMPARISON: None. FINDINGS: LOWER THORAX: Mild basilar subsegmental atelectasis. Visualized heart is normal in size. LIVER: Normal. GALLBLADDER: Surgically absent. BILE DUCTS: No biliary ductal dilatation. SPLEEN: Normal. PANCREAS: Normal. No pancreatic ductal dilatation. ADRENAL GLANDS: No nodules. RIGHT KIDNEY AND URETER: There is a 3 mm calculus in the distal ureter, just proximal to the ureterovesical junction. This causes mild fullness in the right ureter and collecting system. There is a delayed nephrogram on the right, as well as mild right perinephric stranding. There is no focal perinephric collection. No suspicious mass. LEFT KIDNEY AND URETER: No hydronephrosis. Normal renal enhancement. No suspicious mass. The visualized ureter is normal. STOMACH AND BOWEL: There is a small hiatal hernia. No bowel obstruction. No inflammatory changes. APPENDIX: Normal. PELVIC ORGANS/BLADDER: Bladder appears normal, within limits of underdistention. PERITONEUM AND RETROPERITONEUM: No pneumoperitoneum. No abdominal free fluid or loculated collection. LYMPH NODES: No lymphadenopathy. VESSELS: Abdominal aorta is nonaneurysmal. No venous thrombosis. ABDOMINAL WALL: Unremarkable. BONES: Multilevel degenerative changes involve the spine. No acute osseous abnormality. IMPRESSION: There is a 3 mm obstructing calculus in the distal right ureter just proximal to the ureterovesical junction. This causes minimal right hydronephrosis. There is mild perinephric stranding, which is likely reactive in nature, without focal perinephric collection. A delayed nephrogram on the right is likely related to the obstructive calculus. Dictated on workstation # [id number] Dict: 06/28/20 0748 Trans: 06/28/20 0757 CV [id number] Interpreted by: DUY CLARKE DO Electronically signed by: Departure Communication (Admissions) Time/Spoke to Admitting Phy: 09:10 Impression Primary Impression: Right ureteral stone Disposition: ADMITTED INPATIENT Condition: Stable Admissions Decision to Admit Reason: Admit from ER (General) Decision to Admit/Date: Jun 28, 2020 Time/Decision to Admit Time: 09:10 Departure-Patient Inst. Referrals: ALICIA LOVE DO (PCP/Family) Primary Care Physician MERCEDEZ ALCARAZ MD Patient Instructions: Kidney Stones (DC), Severe Abdominal Pain, Adult (DC) Add. Discharge Instructions: All discharge instructions reviewed with patient and/or family. Voiced understanding. Take medications as directed. You may take ibuprofen 600 mg every 8 hours as needed for pain. Drink plenty of fluids. Follow-up with your doctor for recheck and further evaluation in a few days. You may call and make appointment with Dr. Alcaraz if things are not improving as you may need procedure to break up the stone. Return for worse pain, fever, vomiting, weakness, breathing problems or other concerns as needed. NAS SWEENEY MD Jun 28, 2020 06:26
[2020-06-28 06:29] LABS: BILIRUBIN,URINE NEGATIVE (NEGATIVE); CLARITY,URINE CLOUDY; COLOR,URINE YELLOW; GLUCOSE, URINE (UA) NEGATIVE (NEGATIVE); KETONES,URINE NEGATIVE (NEGATIVE); LEUKOCYTE ESTERASE ,URINE NEGATIVE (NEGATIVE); NITRITE,URINE NEGATIVE (NEGATIVE); PROTEIN,URINE 1+ (NEGATIVE)
[2020-06-28] MEDS ORDERED: ONDANSETRON 4 MG/2 ML (SDV) Z0FRAN IVP ONE ×2 (06:30→08:15)
--- NOTE | 2020-06-28 06:30 | NUR ---
Pt given meds as ordered; pt states she did drive herself here but will have her come and pick her up when she is ready.
[2020-06-28 06:37] LABS: BASOPHILS % (AUTO) 0 % (0-10); EOSINOPHILS # (AUTO) 0.3 10^3/uL (0.0-0.3); EOSINOPHILS % (AUTO) 3 % (0-10); HEMATOCRIT 41 % (35-52); HEMOGLOBIN 13.4 g/dL (11.5-16.0); LYMPHOCYTES # (AUTO) 2.7 10^3/uL (1.0-4.0); LYMPHOCYTES % (AUTO) 27 % (12-44); MEAN CORPUSCULAR HEMOGLOBIN 30 pg (25-34); MEAN CORPUSCULAR HGB CONC 33 g/dL (32-36); MEAN CORPUSCULAR VOLUME 90 fL (80-99); MEAN PLATELET VOLUME 10.4 fL (9.0-12.2); MONOCYTES # (AUTO) 0.7 10^3/uL (0.0-1.0); MONOCYTES % (AUTO) 7 % (0-12); NEUTROPHILS # (AUTO) 6.3 10^3/uL (1.8-7.8); NEUTROPHILS % (AUTO) 63 % (42-75); PLATELET COUNT 316 10^3/uL (130-400)
[2020-06-28 06:40] LABS: ALBUMIN 3.7 GM/DL (3.2-4.5); CHLORIDE 108 MMOL/L (98-107); POTASSIUM 3.7 MMOL/L (3.6-5.0); SODIUM 138 MMOL/L (135-145)
[2020-06-28 06:41] LABS: CALCIUM 8.3 MG/DL (8.5-10.1)
[2020-06-28 06:42] LABS: BACTERIA,URINE TRACE /HPF; GRANULAR CASTS,URINE 0-2 /LPF; WBC,URINE 0-2 /HPF
[2020-06-28 06:43] LABS: GLUCOSE 125 MG/DL (70-105); TOTAL PROTEIN 6.8 GM/DL (6.4-8.2)
[2020-06-28 06:44] LABS: BILIRUBIN,TOTAL 0.5 MG/DL (0.1-1.0); CARBON DIOXIDE 18 MMOL/L (21-32)
[2020-06-28 06:46] LABS: ALKALINE PHOSPHATASE 84 U/L (40-136); GFR ESTIMATED > 60
[2020-06-28 06:47] LABS: BUN/CREATININE RATIO 12
[2020-06-28 06:49] LABS: ALANINE AMINOTRANSFERASE 19 U/L (0-55)
[2020-06-28] MEDS ORDERED: IOHEXOL 350 MG/ML 100 ML (OMNIPAQUE 350) VIAL IV ONE (07:15)
[2020-06-28] MEDS ORDERED: HOLD METFORMIN - RECEIVED CONTRAST 20 ML VIAL IV SCH (07:15)
[2020-06-28] MEDS ORDERED: NS 100 ML (IVPB) BAG IV ONE (07:15)
--- NOTE | 2020-06-28 07:58 | Diagnostic Imaging Report ---
PROCEDURE: CT abdomen and pelvis with contrast, rule out appendicitis. TECHNIQUE: Multiple contiguous axial images were obtained through the abdomen and pelvis after the administration of intravenous contrast. All CT scans use one or more of the following dose optimizing techniques: automated exposure control, MA and/or KvP adjustment based on patient size and exam type or iterative reconstruction. INDICATION: Right flank pain radiating to the right lower abdominal quadrant. COMPARISON: None. FINDINGS: LOWER THORAX: Mild basilar subsegmental atelectasis. Visualized heart is normal in size. LIVER: Normal. GALLBLADDER: Surgically absent. BILE DUCTS: No biliary ductal dilatation. SPLEEN: Normal. PANCREAS: Normal. No pancreatic ductal dilatation. ADRENAL GLANDS: No nodules. RIGHT KIDNEY AND URETER: There is a 3 mm calculus in the distal ureter, just proximal to the ureterovesical junction. This causes mild fullness in the right ureter and collecting system. There is a delayed nephrogram on the right, as well as mild right perinephric stranding. There is no focal perinephric collection. No suspicious mass. LEFT KIDNEY AND URETER: No hydronephrosis. Normal renal enhancement. No suspicious mass. The visualized ureter is normal. STOMACH AND BOWEL: There is a small hiatal hernia. No bowel obstruction. No inflammatory changes. APPENDIX: Normal. PELVIC ORGANS/BLADDER: Bladder appears normal, within limits of underdistention. PERITONEUM AND RETROPERITONEUM: No pneumoperitoneum. No abdominal free fluid or loculated collection. LYMPH NODES: No lymphadenopathy. VESSELS: Abdominal aorta is nonaneurysmal. No venous thrombosis. ABDOMINAL WALL: Unremarkable. BONES: Multilevel degenerative changes involve the spine. No acute osseous abnormality. IMPRESSION: There is a 3 mm obstructing calculus in the distal right ureter just proximal to the ureterovesical junction. This causes minimal right hydronephrosis. There is mild perinephric stranding, which is likely reactive in nature, without focal perinephric collection. A delayed nephrogram on the right is likely related to the obstructive calculus. Dictated by: Dictated on workstation # [id number]
[2020-06-28] MEDS ORDERED: NS IV 1000 ML 1,000 ML IV STA (08:07)
[2020-06-28] MEDS ORDERED: CEPH500T PO (08:27)
[2020-06-28] MEDS ORDERED: HYDR-4226 PO (08:27)
--- NOTE | 2020-06-28 09:05 | NUR ---
PT VOMITING AT THIS TIME. DR NOTIFIED.
[2020-06-28] MEDS ORDERED: PROMETHAZINE INJ 25 MG/ML (PHENERGAN) AMP IVP STA (09:08)
[2020-06-28] MEDS ORDERED: NS IV 1000 ML 1,000 ML IV SCH (09:18)
[2020-06-28] MEDS ORDERED: diphenhydrAMINE 25 MG TAB (BENADRYL) PO PRN (09:30)
[2020-06-28] MEDS ORDERED: CALCIUM CARBONATE 500 MG (TUMS) TAB.CHEW PO PRN (09:30)
[2020-06-28] MEDS ORDERED: HYDROcodone/APAP 5 MG/325 MG (LORTAB) TAB PO PRN (09:30)
[2020-06-28] MEDS ORDERED: LOPERAMIDE 2 MG (IMODIUM) TABLET PO PRN (09:30)
[2020-06-28] MEDS ORDERED: DOCUSATE SODIUM 100 MG (COLACE) CAP PO PRN (09:30)
[2020-06-28] MEDS ORDERED: ACETAMINOPHEN 500 MG TAB (TYLENOL) PO PRN (09:30)
[2020-06-28] MEDS ORDERED: PROMETHAZINE INJ 25 MG/ML (PHENERGAN) AMP IM PRN (09:30)
[2020-06-28] MEDS ORDERED: METOCLOPRAMIDE INJ 10 MG/2 ML (REGLAN) IVP ONE (09:30)
[2020-06-28] MEDS ORDERED: HYDROmorphone 2 MG/ML VIAL (DILAUDID) IVP PRN (09:30)
[2020-06-28] MEDS ORDERED: ONDANSETRON 4 MG/2 ML (SDV) Z0FRAN IVP PRN (09:30)
[2020-06-28] MEDS ORDERED: ALPRAZolam 0.25 MG (XANAX) TAB PO PRN (09:30)
[2020-06-28] MEDS ORDERED: SCOPOLAMINE 1.5 MG (TRANSDERM-SCOP) PATCH TD ONE (09:30)
[2020-06-28] MEDS ORDERED: MELATONIN 3 MG TABLET PO PRN (09:30)
[2020-06-28 09:47] VITALS: BP 114/62
--- NOTE | 2020-06-28 10:21 | NUR ---
MARIE SANTANA admitted to room 409-1, with an admitting diagnosis of kidney stone, on 06/28/20 from ER via wheel chair , accompanied by staff .MARIE SANTANA introduced to surroundings, call light, bed controls, phone, TV, temperature control, lights, meal times, smoking policy, visitor policy, side rail policy, bathrooms and showers. Patient Rights given to patient in the handbook. MARIE SANTANA verbalizes understanding that [facility] is not responsible for the loss or damage to any personal effects or valuables that are kept in the patients posession during their hospitalization. The following Patient Care Plans and discharge were discussed with the patient. MARIE SANTANA verbalizes understanding of Interdisciplinary Patient Education. Patient was informed about the Rapid Response Team and its purpose.
[2020-06-28] MEDS ORDERED: cefTRIAXone FOR IV USE 1,000 MG in WATER (STERILE) FOR INJECTION 10 ML IV SCH (10:45)
--- NOTE | 2020-06-28 11:01 | History & Physical ---
History of Present Illness HPI/Chief Complaint CC: Kidney stone HPI: This is a 40yoWF clinic pt with a history of asthma and UTIs who presents to the ER with nausea and vomiting following sever right flank pain that started at 1 oclock in the morning. She reports the nausea and vomiting has been unrelenting and was seen in the ER. She was found to have a kidney stone nearly into the bladder at the junction so Dr. Alcaraz was consulted. Pt was placed on multiple antiemetic and pain medication and supportive care with IV fluids, and will support her until the stone passes into the bladder and her symptoms resolve. We will inquire with Dr. Alcaraz if an antibiotic is required. Source: patient Exam Limitations: no limitations Date Seen 06/28/20 Time Seen by a Provider: 09:30 Attending Physician Cindy Perdue DO PCP Cindy Perdue DO Referring Physician Date of Admission Jun 28, 2020 at 09:11 Home Medications & Allergies Home Medications Reviewed patient Home Medication Reconciliation performed by pharmacy medication reconciliations gameroom technician and/or nursing. Patients Allergies have been reviewed. Allergies Allergies Coded Allergies sumatriptan (Verified Allergy, Unknown, 06/05/17) Past Rorwokw-Pqwwao-Qexcdc Hx Past Med/Social Hx: Reviewed Nursing Past Med/Soc Hx, Reviewed and Corrections made Patient Social History Marrital Status: Employed/Student: employed Alcohol Use: Denies Use Alcohol Beverage of Choice: Other Recreational Drug Use: No Smoking Status: Former Smoker Former Smoker, Quit: Oct 01, 2006 Type Used: Cigarettes Physical Abuse Screen: No Sexual Abuse: No Recent Foreign Travel: No Contact w/other who traveled: No Recent Hopitalizations: Yes (PLANTAR FACITIS) Recent Infectious Disease Expo: No Immunizations Up To Date Tetanus Booster (TDap): Unknown Pediatric: Yes Date of Influenza Vaccine: Oct 13, 2016 Seasonal Allergies Seasonal Allergies: Yes Past Medical History Surgeries: Gallbladder Respiratory: Asthma, Pneumonia Currently Using CPAP: No Currently Using BIPAP: No Cardiac: Hypertension Reproductive: No (DUB, POLYP) Sexually Transmitted Disease: No HIV/AIDS: No Female Reproductive Disorders: Menstrual Problems Genitourinary: Kidney Stones Gastrointestinal: Irritable Bowel Musculoskeletal: Fractures Endocrine: Hypothyroidsim Loss of Vision: Bilateral Hearing Impairment: Denies History of Blood Disorders: Yes (HX OF ANEMIA) Adverse Reaction to Blood Darden: No (N/A) Family History Reviewed Nursing Family Hx Family history: Cardiovascular disease 03 FATHER Family history: Hypertension 03 MOTHER Headache disorder 03 FATHER (had brain tumor) 09 SISTER Myocardial infarction 03 FATHER Review of Systems Constitutional: see HPI Gastrointestinal: nausea, vomiting Musculoskeletal: back pain Physical Exam Physical Exam Vital Signs Vital Signs - First Documented 06/28/20 06:09 Temp 37.1 Pulse 86 Resp 20 B/P (MAP) 186/107 (133) Pulse Ox 96 O2 Delivery Room Air Capillary Refill : Less Than 3 Seconds Height, Weight, BMI Height: 5'4.00" Weight: 275lbs. 3.0oz. 124.299432vm; 53.34 BMI Method:Stated General Appearance: WD/WN, Anxious, Mild Distress Eyes: Bilateral Eye Normal Inspection, Bilateral Eye PERRL HEENT: PERRL/EOMI, Normal ENT Inspection, Pharynx Normal Neck: Full Range of Motion, Normal Inspection, Non Tender, Supple, Carotid Bruit Respiratory: Chest Non Tender, Lungs Clear, Normal Breath Sounds, No Accessory Muscle Use, No Respiratory Distress Cardiovascular: Regular Rate, Rhythm, No Edema, No Gallop, No JVD, No Murmur, Normal Peripheral Pulses Gastrointestinal: Normal Bowel Sounds, No Organomegaly, No Pulsatile Mass, Non Tender, Soft Back: Normal Inspection, No CVA Tenderness, No Vertebral Tenderness Extremity: Normal Capillary Refill, Normal Inspection, Normal Range of Motion, Non Tender, No Calf Tenderness, No Pedal Edema Neurologic/Psychiatric: Alert, Oriented x3, No Motor/Sensory Deficits, Normal Mood/Affect Skin: Normal Color, Warm/Dry Lymphatic: No Adenopathy Results Results/Procedures Labs Laboratory Tests 06/28/20 06:00 Patient resulted labs reviewed. Assessment/Plan Admission Diagnosis Assessment: Renal colic Severe N/V Kidney stone obstruction consulted Dr Alcaraz Asthma Hypothyroidism HTN Obesity Plan: Pain control Antiemetics Dr Alcaraz consult Admission Status: Observation Diagnosis/Problems Diagnosis/Problems (1) Renal colic on right side (2) Nausea & vomiting (3) Right ureteral stone Status: Acute Clinical Quality Measures DVT/VTE Risk/Contraindication: Risk Factor Score Per Nursin RFS Level Per Nursing on Admit: 1=Low/No VTE PPX Contraindications-Pharm: Other *list below* Other: needs procedure CINDY PERDUE DO Jun 28, 2020 11:01
[2020-06-28] MEDS ORDERED: KETOROLAC 30 MG/ML VIAL IVP PRN (11:15)
--- NOTE | 2020-06-28 11:28 | Diagnostic Imaging Report ---
EXAMINATION: Supine abdomen at 10:34 AM. INDICATION: Abdominal pain, urolithiasis. FINDINGS: The CT abdomen/pelvis exam performed earlier today at 7:25 AM noted partial obstruction of the right collecting system due to a 3 mm calculus at the ureterovesical junction. On this exam, the obstructive calculus is difficult to identify; however, there is a persistent nephrogram effect of the right kidney, consistent with partial obstruction. The left kidney is unremarkable. The bladder is only partially filled with oral contrast and consequently difficult to assess. No other abnormality is noted. IMPRESSION: There is a persistent nephrogram effect of the right kidney, consistent with partial obstruction of the right collecting system. The obstructive calculus seen on the CT exam, however, is not well-visualized on this study. Dictated by: Dictated on workstation # [id number]
--- NOTE | 2020-06-28 11:33 | Progress Note ---
COLE MICHAEL MED STUDENT 06/28/20 1132: Progress Note CC: R lower back/RLQ pain, nausea, vomiting HPI: Aviva is a 40yo female presenting with acute onset of R lower back pain radiating to the RLQ with associated nausea and vomiting. She woke up this morning at 1AM with R lower back pain that she had not experienced before. Shortly after she started to feel nauseous and began vomiting. She drove herself to the ER. Pain is currently 2-3/10, constant dull ache that has improved with fentanyl and toradol. She was given Zofran, Phenergan, and Scopolamine patch with minimal improvement of nausea/emesis. CT abd/pelvis w/ contrast showed no signs of acute appendicitis, but did show a 3mm R distal ureter obstructive kidney stone. She has had continuous emesis with green-colored vomit in the ER and on the floor. PMH: HTN Hypothyroidism Asthma IBS Anemia PSH: 2x Discectomy for herniated discs Cholecystectomy ACL repair [place] teeth removal Allergies: Sumatriptan(facial numbness/tingling) Seasonal(SOB, chest tightness, hives) Medications: Albuterol 6.7g inhaler 2 puffs Q6 prn SOB Amlodipine 5mg PO QD Fluticasone/Salmeterol 1 puff BID Lortab 1tab PO Q4 prn pain Levothyroxine 75mcg PO QD Montelukast 10mg PO HS Norgestimate-Ethinyl Estradiol 1tab PO HS Prednisone 40mg PO QD Promethazine/Codeine 5ml Q4 PO prn cough Triamterene/HCTZ 1cap PO QD FH: HTN(father and mother) Sister(healthy) 5yo daughter(healthy) SH: Smoked tobacco experimentally 15+yrs ago Drinks alcohol socially No recreational drug use , lives in [place] with and 5yo daughter. 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 ROS: General: denies chills/fever, weight loss/gain HEENT: denies headache, vision/hearing/smell changes, dysphagia CV: denies CP, palpitations, edema Respiratory: denies SOB GI: nauseated, vomiting since this morning w/o hematemesis, last BM yesterday, not passing flatus today. moderate pain to R lower back radiating to RLQ : was unable to urinate this morning but has since been able to in the past couple hours. denies pain, hematuria. voids small amounts and feels like she still has to urinate after MSK: denies pain Neuro: denies numbness/tingling Skin: denies pruritus, rashes Physical Exam: VS: 37.1 T 86 HR 20 RR 186/107 BP 96% RA General: Pt is resting in bed, calm/cooperative, pleasant affect, NAD Head: Normocephalic, atraumatic Eyes: PERRLA, EOMI, normal inspection Ears: normal inspection Nose: nares patent, no septal deviation Throat: no thyromegaly, no tenderness, no masses, moist mucosa CV: RRR, no clicks/rubs/murmurs, no JVD, no carotid bruit, peripheral pulses +2/4 x4, no edema Respiratory: Lungs CTAB, no accessory muscle use Abd: Large, soft, TTP along R lower back-RLQ with moderate force, normoactive BS x4 quadrants Extremities: Strength +5/5 x4, Full ROM x4 Neuro: A&Ox3, appropriate affect Skin: warm/dry/intact. no erythema, ecchymosis Lymphatic: no lymphadenopathy Labs: Serum test negative Urine: negative for hematuria, leukocyte esterase, nitrites. +1 proteinuria Rads: CT abd/pelvis w/ contrast: normal appendix. R distal ureter calculus with mild hydronephrosis visualized Assessment: R lower back/RLQ pain r/t nephrolithiasis Nausea/vomiting HTN Hypocalcemia Plan: Consult Urology Pain/nausea management Clear liquid diet IV fluids NPO at midnight R ureteroscopy tomorrow CINDY LOVE DO 06/29/20 0525: Supervisory-Addendum Brief Verification & Attestation Participated in pt care: history, MDM, physical Personally performed: exam, history, MDM, supervision of care Care discussed with: Medical Student Procedures: n/a Results interpretation: Verified all documentation Verification and Attestation of Medical Student E/M Service A medical student performed and documented this service in my presence. I reviewed and verified all information documented by the medical student and made modifications to such information, when appropriate. I personally performed the physical exam and medical decision making. Cindy Love, Jun 29, 2020,05:25 COLE MICHA[employer] MED STUDENT Jun 28, 2020 11:32 CINDY LOVE DO Jun 29, 2020 05:25
[2020-06-28 12:00] VITALS: BP 106/72
[2020-06-28] MEDS ORDERED: METOCLOPRAMIDE INJ 10 MG/2 ML (REGLAN) IVP SCH (12:00)
[2020-06-28] MEDS ORDERED: LEVO125T6 PO (12:41)
[2020-06-28] MEDS ORDERED: NORG1TAB75 PO (12:44)
[2020-06-28] MEDS ORDERED: CETI10TA9 PO (12:44)
[2020-06-28] MEDS ORDERED: IBUP-2473 PO (12:44)
[2020-06-28] MEDS ORDERED: ACET-2267 PO (12:44)
[2020-06-28] MEDS ORDERED: LOSA100T57 PO (12:44)
--- NOTE | 2020-06-28 14:32 | NUR ---
I SPOKE WITH THE PATIENT AND WENT THROUGH THE EXTERNAL MED HISTORY TO COMPLETE THIS MED REC. OTC: ZYRTEC IBUPROFEN TYLENOL
--- NOTE | 2020-06-28 14:39 | CONSULTATION REPORT ---
DATE OF SERVICE: 06/28/2020 ATTENDING PHYSICIAN: Dr. Perdue. SUMMARY: After reviewing the patient's records, x-rays and her chart, interviewing and examining her. This is a 40-year-old white lady admitted by Dr. Perdue because of right-sided pain, nausea, vomiting and was found by CT to have a 3 mm stone just above the UVJ with mild obstruction. She was started on analgesics, antiemetic, IV fluid and clear liquid as tolerated. I ordered a KUB, it is hard to see the calcification, either hidden by the contrast or too small. The patient also admits to overactive bladder and stress urinary incontinence. On the KUB, it seems that she may very well have a prolapse. I reviewed her H and P from the emergency room and Dr. Perdue and with the patient. PHYSICAL EXAMINATION: VITAL SIGNS: Per chart. GENERAL: Well-nourished, well-developed, in moderate distress at the time of my examination, mostly from nausea. HEAD: Normocephalic. ENT: Unremarkable. NECK: Supple, no bruits. CHEST: Clear, nontender. HEART: Regular rate, no murmur. ABDOMEN: Soft, obese. There is 1+ right CVA tenderness. EXTREMITIES: Lower extremity, no edema or cyanosis. NEUROLOGIC: Grossly intact. Oriented x3. IMPRESSION: Right distal ureteral stone with pain, nausea, vomiting and hydronephrosis. PLAN: Observe IV fluids, strain all urine, antiemetic, pain medication, antibiotic coverage. We will keep her n.p.o. after midnight in case we need to do surgery tomorrow as an ureteroscopy with stone lithotripsy, possible basket stent or lithotomy. Procedure was fully explained to the patient and all her questions answered Thank you for letting me participate in the care of this patient. We will follow with you. Job ID: [id number] DocumentID: [id number] Dictated Date: 06/28/2020 12:24:06 Campus Coordinator Date: 06/28/2020 14:39:31 Dictated By: MERCEDEZ MELENDREZ MD
[2020-06-28 15:30] VITALS: BP 138/85
--- NOTE | 2020-06-28 16:50 | NUR ---
Call placed to Dr. Alcaraz, to notify that patient passed kidney stone. Received order that patient may go home if feels better.
--- NOTE | 2020-06-28 20:50 | Discharge Summary ---
Diagnosis/Chief Complaint Date of Admission Jun 28, 2020 at 09:11 Date of Discharge Jun 28, 2020 at 18:40 Discharge Date: Jun 28, 2020 Discharge Diagnosis Renal colic Severe N/V Discharge Summary Discharge Physical Examination Allergies: Coded Allergies: sumatriptan (Verified Allergy, Unknown, 06/05/17) Vitals & I&Os Vital Signs Date Time Temp Pulse Resp B/P (MAP) Pulse Ox O2 Delivery O2 Flow Rate FiO2 06/28/20 18:39 06/28/20 15:30 36.4 69 18 94 Room Air Hospital Course Was the Problem List Reviewed?: Yes See brief H&P HPI. Patient passed stone spontaneously and she was well enough to DC home. Labs (last 24 hrs) Laboratory Tests 06/28/20 06:00: White Blood Count 10.0, Red Blood Count 4.53, Hemoglobin 13.4, Hematocrit 41, Mean Corpuscular Volume 90, Mean Corpuscular Hemoglobin 30, Mean Corpuscular Hemoglobin Concent 33, Red Cell Distribution Width 12.4, Platelet Count 316, Mean Platelet Volume 10.4, Immature Granulocyte % (Auto) 1, Neutrophils (%) (Auto) 63, Lymphocytes (%) (Auto) 27, Monocytes (%) (Auto) 7, Eosinophils (%) (Auto) 3, Basophils (%) (Auto) 0, Neutrophils # (Auto) 6.3, Lymphocytes # (Auto) 2.7, Monocytes # (Auto) 0.7, Eosinophils # (Auto) 0.3, Basophils # (Auto) 0.0, Immature Granulocyte # (Auto) 0.1, Urine Color YELLOW, Urine Clarity CLOUDY, Uri ne pH 6.0, Urine Specific [place] >=1.030, Urine Protein 1+H, Urine Glucose (UA) NEGATIVE, Urine Ketones NEGATIVE, Urine Nitrite NEGATIVE, Urine Bilirubin NEGATIVE, Urine Urobilinogen 0.2, Urine Leukocyte Esterase NEGATIVE, Urine RBC ( Auto) NEGATIVE, Urine RBC NONE, Urine WBC 0-2, Urine Squamous Epithelial Cells 2-5, Urine Crystals NONE, Urine Bacteria TRACE, Urine Casts PRESENT, Urine Granular Casts 0-2H, Urine Mucus NEGATIVE, Urine Culture Indicated NO, Sodium Level 138, Potassium Level 3.7, Chloride Level 108H, Carbon Dioxide Level 18L, Anion Gap 12, Blood Urea Nitrogen 12, Creatinine 1.00, Estimat Glomerular Filtration Rate > 60, BUN/Creatinine Ratio 12, Glucose Level 125H, Calcium Level 8.3L, Corrected Calcium 8.5, Total Bilirubin 0.5, Aspartate Amino Transf (AST/SGOT) 16, Alanine Aminotransferase (ALT/SGPT) 19, Alkaline Phosphatase 84, C-Reactive Protein High Sensitivity 0.86H, Total Protein 6.8, Albumin 3.7, Serum Test, Qualitative NEGATIVE Pending Labs Laboratory Tests 06/28/20 06:00: White Blood Count 10.0, Red Blood Count 4.53, Hemoglobin 13.4, Hematocrit 41, Mean Corpuscular Volume 90, Mean Corpuscular Hemoglobin 30, Mean Corpuscular Hemoglobin Concent 33, Red Cell Distribution Width 12.4, Platelet Count 316, Mean Platelet Volume 10.4, Immature Granulocyte % (Auto) 1, Neutrophils (%) (Auto) 63, Lymphocytes (%) (Auto) 27, Monocytes (%) (Auto) 7, Eosinophils (%) (Auto) 3, Basophils (%) (Auto) 0, Neutrophils # (Auto) 6.3, Lymphocytes # (Auto) 2.7, Monocytes # (Auto) 0.7, Eosinophils # (Auto) 0.3, Basophils # (Auto) 0.0, Immature Granulocyte # (Auto) 0.1, Urine Color YELLOW, Urine Clarity CLOUDY, Urine pH 6.0, Urine Specific [place] >=1.030, Urine Protein 1+, Urine Glucose (UA) NEGATIVE, Urine Ketones NEGATIVE, Urine Nitrite NEGATIVE, Urine Bilirubin NEGATIVE, Urine Urobilinogen 0.2, Urine Leukocyte Esterase NEGATIVE, Urine RBC (Auto) NEGATIVE, Urine RBC NONE, Urine WBC 0-2, Urine Squamous Epithelial Cells 2-5, Urine Crystals NONE, Urine Bacteria TRACE, Urine Casts PRESENT, Urine Granular Casts 0-2, Urine Mucus NEGATIVE, Urine Culture Indicated NO, Sodium Level 138, Potassium Level 3.7, Chloride Level 108, Carbon Dioxide Level 18, Anion Gap 12, Blood Urea Nitrogen 12, Creatinine 1.00, Estimat Glomerular Filtration Rate > 60, BUN/Creatinine Ratio 12, Glucose Level 125, Calcium Level 8.3, Corrected Calcium 8.5, Total Bilirubin 0.5, Aspartate Amino Transf (AST/SGOT) 16, Alanine Aminotransferase (ALT/SGPT) 19, Alkaline Phosphatase 84, C-Reactive Protein High Sensitivity 0.86, Total Protein 6.8, Albumin 3.7, Serum Test, Qualitative NEGATIVE Discharge Home Medications: Active Scripts Active Reported Tylenol Extra Strength (Acetaminophen) 500 Mg Tablet 1,000 Mg PO Q8H PRN TAKES 2 (500MG) TABLETS Ibuprofen 200 Mg Tablet 800 Mg PO Q6H PRN TAKES 4 (200MG) TABLETS Wal-Zyr (Cetirizine HCl) 10 Mg Tablet 10 Mg PO DAILY Estarylla 0.25-0.035 mg Tablet (Norgestimate-Ethinyl Estradiol) 1 Each Tablet 1 Each PO 2100 Losartan Potassium 100 Mg Tablet 100 Mg PO DAILY Levothyroxine Sodium 125 Mcg Tablet 125 Mcg PO DAILY Proventil Hfa (Albuterol Sulfate) 6.7 Gm Hfa.aer.ad 2 Puff INH Q6H PRN Amlodipine Besylate 5 Mg Tablet 5 Mg PO DAILY Montelukast Sodium 10 Mg Tablet 10 Mg PO HS Instructions to patient/family Please see electronic discharge instructions given to patient. Clinical Quality Measures DVT/VTE Risk/Contraindication: Risk Factor Score Per Nursin RFS Level Per Nursing on Admit: 1=Low/No VTE PPX Contraindications-Pharm: Other *list below* Other: needs procedure ALICIA LOVE DO Jun 28, 2020 20:50
[2020-06-28] MEDS ORDERED: SENNA W/DOCUSATE (SENOKOT S) TABLET PO SCH (21:00)
== END 2020-06-28 18:40 | disposition home or self-care (01) ==
LOC: EDUNIT# 05:46 → ER 05:47 → 4TH 09:11
PROVIDERS: ADMIT Internal Medicine; ATTEND Internal Medicine
DX: N20.2 Calculus of kidney with calculus of ureter (principal); R11.2 Nausea with vomiting, unspecified; J45.909 Unspecified asthma, uncomplicated; I10 Essential (primary) hypertension; E03.9 Hypothyroidism, unspecified; J18.9 Pneumonia, unspecified organism; E66.9 Obesity, unspecified; Z68.43 Body mass index [BMI] 50.0-59.9, adult; Z79.51 Long term (current) use of inhaled steroids; Z79.899 Other long term (current) drug therapy; Z88.8 Allergy status to other drugs, medicaments and biological substances; Z87.891 Personal history of nicotine dependence
CPT/HCPCS: 74018; 74177; 80053; 81000; 84703; 85025; 86141; 87081; 99284; G0378; 36415

== ENCOUNTER 2021-08-05 11:07 | Outpatient (CLI) | payer BC ==
[~2021-08-05 11:07] MED LIST changes: +ACET-2267 PO; +AMLO-250 PO; -AMLO5TAB9 PO; +CEPH500T PO; +CETI10TA9 PO; +IBUP-2473 PO; +LEVO125T6 PO; +LOSA100T57 PO; -MONT10TA26 PO; +MONT10TA32 PO; +NORG1TAB75 PO
== END 2021-08-05 11:30 ==
LOC: SLEEP 11:07
PROVIDERS: ATTEND Surgery
DX: G47.33 Obstructive sleep apnea (adult) (pediatric) (principal)
CPT/HCPCS: G0399

== ENCOUNTER → 2021-10-19 | Outpatient (REF) ==
[~2021-10-19] MED LIST changes: +CYCL10TA25 PO; -CYCL10TA9 PO; +MONT-40 PO; -MONT10TA32 PO
--- NOTE | 2021-10-19 11:06 | Diagnostic Imaging Report ---
INDICATION: Fall and right wrist pain. TIME OF EXAM: 10:57 a.m. TECHNIQUE: Three views of the right wrist were obtained. FINDINGS: Distal radius and ulna are intact. Carpus is intact. Metacarpals are unremarkable. No fractures are seen. IMPRESSION: No acute bony abnormality is detected. Dictated by: Dictated on workstation # [id number]
== END ==
LOC: OCC 10:34
PROVIDERS: ATTEND Nurse Practitioner Family
DX: M25.531 Pain in right wrist (principal)
CPT/HCPCS: 73110

== ENCOUNTER → 2022-04-05 | Outpatient (CLI) | payer BC ==
[~2022-04-05] MED LIST changes: +TRIA1CAP84 PO
[2022-04-05 10:52] LABS: BASOPHILS % (AUTO) 0 % (0-10); EOSINOPHILS # (AUTO) 0.2 10^3/uL (0.0-0.3); EOSINOPHILS % (AUTO) 2 % (0-10); HEMATOCRIT 39 % (35-52); HEMOGLOBIN 12.4 g/dL (11.5-16.0); LYMPHOCYTES # (AUTO) 2.1 10^3/uL (1.0-4.0); LYMPHOCYTES % (AUTO) 22 % (12-44); MEAN CORPUSCULAR HEMOGLOBIN 29 pg (25-34); MEAN CORPUSCULAR HGB CONC 32 g/dL (32-36); MEAN CORPUSCULAR VOLUME 90 fL (80-99); MEAN PLATELET VOLUME 9.7 fL (9.0-12.2); MONOCYTES # (AUTO) 0.6 10^3/uL (0.0-1.0); MONOCYTES % (AUTO) 6 % (0-12); NEUTROPHILS # (AUTO) 6.6 10^3/uL (1.8-7.8); NEUTROPHILS % (AUTO) 69 % (42-75); PLATELET COUNT 257 10^3/uL (130-400); WHITE BLOOD COUNT 9.5 10^3/uL (4.3-11.0)
== END ==
LOC: LAB 09:58
PROVIDERS: ATTEND Nurse Practitioner Family
DX: M25.562 Pain in left knee (principal); M25.462 Effusion, left knee; L53.9 Erythematous condition, unspecified
CPT/HCPCS: 36415; 84550; 85025; 85379

== ENCOUNTER → 2022-08-16 | Outpatient (CLI) | payer BC ==
[~2022-08-16] MED LIST changes: +ALBU8.5H6 IH; -RT-ALBUINH IH
--- NOTE | 2022-08-16 19:06 | Diagnostic Imaging Report ---
INDICATION: Routine screening. COMPARISON: Prior mammogram from 11/20/2018. EXAMINATION: 2D and 3D bilateral screening mammography was performed with CAD. The current study was also evaluated with a Computer Aided Detection (CAD) system. FINDINGS: Scattered fibroglandular densities are identified, bilaterally. No mass or malignant-appearing microcalcifications are seen. Axillae are unremarkable. IMPRESSION: No mammographic features suspicious for malignancy are identified. ACR BI-RADS Category 1: Negative. Result letter will be mailed to the patient. Note: At least 10% of breast cancer is not imaged by mammography. Dictated by: Dictated on workstation # [id number]
== END ==
LOC: RAD 15:30
PROVIDERS: ATTEND Internal Medicine
DX: Z12.31 Encounter for screening mammogram for malignant neoplasm of breast (principal)
CPT/HCPCS: 77063; 77067

== ENCOUNTER 2022-08-28 18:01 | Observation (INO) | payer BC ==
[~2022-08-28] VITALS: Ht 162 cm; Wt 140.0 kg
[2022-08-28] MEDS ORDERED: AZITHROMYCIN INJECTION 500 MG in NS (IVPB) 250 ML IV NR (18:15)
[2022-08-28] MEDS ORDERED: ONDANSETRON 4 MG/2 ML (SDV) Z0FRAN IV PRN (18:15)
[2022-08-28] MEDS ORDERED: CALCIUM CARBONATE 500 MG (TUMS) TAB.CHEW PO PRN (18:15)
[2022-08-28] MEDS ORDERED: morphine INJ 4 MG/ML 1 ML (VIAL/SYRINGE) IV PRN (18:15)
[2022-08-28] MEDS ORDERED: LACTULOSE SYRUP 10GM/15ML (ENULOSE) 30ML UDC PO PRN (18:15)
[2022-08-28] MEDS ORDERED: MELATONIN 3 MG TABLET PO PRN (18:15)
[2022-08-28] MEDS ORDERED: diphenhydrAMINE 25 MG TAB (BENADRYL) PO PRN (18:15)
[2022-08-28] MEDS ORDERED: polyethylene glycoL POWDER 17 GM (MIRALAX) PACK PO PRN (18:15)
[2022-08-28] MEDS ORDERED: MILK OF MAGNESIA 400 MG/5 ML 30 ML UDC PO PRN (18:15)
[2022-08-28] MEDS ORDERED: cloNIDine 0.1 MG (CATAPRES) TAB PO PRN (18:15)
[2022-08-28] MEDS ORDERED: ONDANSETRON 4 MG (ZOFRAN) ORAL DISSOLVE TAB PO PRN (18:15)
[2022-08-28] MEDS ORDERED: diphenhydrAMINE 50 MG/ML INJ (BENADRYL) IVP PRN (18:15)
[2022-08-28] MEDS ORDERED: ALPRAZolam 0.5 MG (XANAX) TAB PO PRN (18:15)
[2022-08-28] MEDS ORDERED: guaiFENesin/CODEINE (ROBITUSSIN AC) 10ML UDC PO PRN (18:15)
[2022-08-28] MEDS ORDERED: ENOXAPARIN 40 MG/0.4 ML (LOVENOX) SYR SC SCH (18:15)
[2022-08-28] MEDS ORDERED: ANTACID SUSP 30 ML UDC (MYLANTA) PO PRN (18:15)
[2022-08-28] MEDS ORDERED: RT-ALBUTEROL SULF 2.5 MG/3 ML PRE-MIX VIAL INH PRN (18:15)
[2022-08-28] MEDS ORDERED: BISACODYL 10 MG SUPP (DULCOLAX) PR PRN (18:15)
[2022-08-28 18:28] VITALS: BP 170/96
--- NOTE | 2022-08-28 18:32 | Diagnostic Imaging Report ---
EXAMINATION: Chest 1 view HISTORY: Dyspnea. COMPARISON: 06/12/2017. FINDINGS: The lung volumes are normal. No focal consolidation is seen. No large pleural effusion or pneumothorax is seen. The cardiomediastinal silhouette is normal in size and contour. No acute osseous abnormality is seen. IMPRESSION: 1. No acute pleuroparenchymal process. Dictated by: Dictated on workstation # [id number]
[2022-08-28] MEDS: cefTRIAXone 1 GM PRE-MIX 50 ML IV SCH (18:35)
[2022-08-28 18:45] LABS: BASOPHILS % (AUTO) 0 % (0-10); EOSINOPHILS % (AUTO) 0 % (0-10); HEMATOCRIT 40 % (35-52); HEMOGLOBIN 12.9 g/dL (11.5-16.0); LYMPHOCYTES # (AUTO) 1.6 10^3/uL (1.0-4.0); LYMPHOCYTES % (AUTO) 22 % (12-44); MEAN CORPUSCULAR HEMOGLOBIN 28 pg (25-34); MEAN CORPUSCULAR HGB CONC 32 g/dL (32-36); MEAN CORPUSCULAR VOLUME 87 fL (80-99); MEAN PLATELET VOLUME 9.9 fL (9.0-12.2); MONOCYTES # (AUTO) 0.4 10^3/uL (0.0-1.0); MONOCYTES % (AUTO) 5 % (0-12); NEUTROPHILS # (AUTO) 5.2 10^3/uL (1.8-7.8); NEUTROPHILS % (AUTO) 71 % (42-75); PLATELET COUNT 302 10^3/uL (130-400); WHITE BLOOD COUNT 7.3 10^3/uL (4.3-11.0)
[2022-08-28 19:01] LABS: ALBUMIN 3.7 GM/DL (3.2-4.5)
[2022-08-28 19:03] LABS: CALCIUM 8.9 MG/DL (8.5-10.1)
[2022-08-28 19:04] LABS: TOTAL PROTEIN 7.1 GM/DL (6.4-8.2)
[2022-08-28 19:06] LABS: BILIRUBIN,TOTAL 0.3 MG/DL (0.1-1.0)
[2022-08-28 19:08] LABS: CREATININE SERUM 0.71 MG/DL (0.60-1.30)
[2022-08-28 19:13] VITALS: BP 155/95
[2022-08-28 19:24] LABS: ABG BASE EXCESS -3.2 MMOL/L (-2.5-2.5); ABG OXYGEN SATURATION 97 % (94-100); ABG PCO2 31 MMHG (35-45); ABG PH 7.43 (7.37-7.43); ABG PO2 82 MMHG (79-93); ABG TCO2 21.3 MMOL/L (21.0-31.0)
[2022-08-28 19:26] LABS: ALLENS TEST YES-POS; INSPIRED O2 ROOM AIR; VENTILATOR NO
[2022-08-28 19:48] VITALS: BP 155/95
[2022-08-28 19:51] LABS: POTASSIUM 3.9 MMOL/L (3.6-5.0)
[2022-08-28] MEDS ORDERED: RT-ALBUTEROL SULF 2.5 MG/3 ML PRE-MIX VIAL INH SCH (20:00)
[2022-08-28] MEDS ORDERED: amLODIPine 5 MG (NORVASC) TAB PO ONE (20:30)
[2022-08-28] MEDS ORDERED: ADVAIR HFA 115/21 MCG INHALER 8 GM IH SCH (21:00)
[2022-08-28] MEDS: RT--FLUTICASONE/SALMETEROL 113-14 (AIRDUO RespiCLICK) IH SCH (21:11)
[2022-08-28] MEDS: SENNOSIDES 8.6 MG (SENOKOT) TAB PO SCH (21:26)
[2022-08-28] MEDS: DOCUSATE SODIUM 100 MG (COLACE) CAP PO SCH (21:26)
[2022-08-28] MEDS ORDERED: amLODIPine 5 MG (NORVASC) TAB ONE (21:26)
[2022-08-28] MEDS: MONTELUKAST 10 MG (SINGULAIR) TAB PO SCH (21:26)
[2022-08-28] MEDS: inSUlin ASPART (NovoLOG) 1 UNIT/0.01 ML (CHARGE PER UNIT) SC SCH (21:27)
[2022-08-28] MEDS: BENZONATATE 100 MG (TESSALON) CAPSULE PO SCH (21:27)
[2022-08-28 23:40] VITALS: BP 122/75
[2022-08-28] MEDS: methylPREDNISolone 40 MG/ML (Solu-MEDROL) VIAL IV SCH (23:42)
[2022-08-29] MEDS: RT-ALBUTEROL SULF 2.5 MG/3 ML PRE-MIX VIAL INH SCH ×6 (03:15→22:04)
[2022-08-29 04:06] VITALS: BP 141/71
[2022-08-29] MEDS: methylPREDNISolone 40 MG/ML (Solu-MEDROL) VIAL IV SCH ×3 (05:57→18:14)
[2022-08-29] MEDS: inSUlin ASPART (NovoLOG) 1 UNIT/0.01 ML (CHARGE PER UNIT) SC SCH ×4 (05:58→20:00)
[2022-08-29 06:35] LABS: BASOPHILS % (AUTO) 0 % (0-10); EOSINOPHILS % (AUTO) 0 % (0-10); HEMATOCRIT 38 % (35-52); HEMOGLOBIN 12.3 g/dL (11.5-16.0); LYMPHOCYTES # (AUTO) 1.2 10^3/uL (1.0-4.0); LYMPHOCYTES % (AUTO) 19 % (12-44); MEAN CORPUSCULAR HEMOGLOBIN 28 pg (25-34); MEAN CORPUSCULAR HGB CONC 32 g/dL (32-36); MEAN CORPUSCULAR VOLUME 87 fL (80-99); MEAN PLATELET VOLUME 10.4 fL (9.0-12.2); MONOCYTES # (AUTO) 0.1 10^3/uL (0.0-1.0); MONOCYTES % (AUTO) 2 % (0-12); NEUTROPHILS # (AUTO) 4.7 10^3/uL (1.8-7.8); NEUTROPHILS % (AUTO) 78 % (42-75); PLATELET COUNT 295 10^3/uL (130-400); WHITE BLOOD COUNT 6.1 10^3/uL (4.3-11.0)
[2022-08-29 07:11] LABS: ALBUMIN 3.5 GM/DL (3.2-4.5); BILIRUBIN,TOTAL 0.4 MG/DL (0.1-1.0); CALCIUM 8.6 MG/DL (8.5-10.1); CREATININE SERUM 0.71 MG/DL (0.60-1.30); POTASSIUM 3.8 MMOL/L (3.6-5.0); TOTAL PROTEIN 6.5 GM/DL (6.4-8.2)
[2022-08-29 07:59] VITALS: BP 126/80
[2022-08-29] MEDS: BENZONATATE 100 MG (TESSALON) CAPSULE PO SCH ×3 (08:50→20:00)
[2022-08-29] MEDS: amLODIPine 5 MG (NORVASC) TAB PO SCH (08:50)
[2022-08-29] MEDS: RT--FLUTICASONE/SALMETEROL 113-14 (AIRDUO RespiCLICK) IH SCH ×2 (09:24→19:27)
[2022-08-29] MEDS: DOCUSATE SODIUM 100 MG (COLACE) CAP PO SCH ×2 (09:27→20:03)
[2022-08-29] MEDS: SENNOSIDES 8.6 MG (SENOKOT) TAB PO SCH ×2 (09:27→20:03)
[2022-08-29] MEDS: ENOXAPARIN 60 MG/0.6 ML (LOVENOX) SYR SC SCH ×2 (10:35→20:00)
[2022-08-29 11:03] VITALS: BP 133/77
--- NOTE | 2022-08-29 12:03 | History & Physical ---
[facility] 08/[facility]22 1203: History of Present Illness History of Present Illness Reason for visit/HPI Patient is a 42-year-old female with a history of asthma and status asthmaticus and a patient of Dr. Love who was admitted directly to [facility] on 08/28 for status asthmaticus after being seen in the clinic. Patient states that she started having shortness of breath and cough shortly before thanksgiving and continued with her normal treatments for asthma. Her symptoms continued to worsen over the next few days with the worst day being yesterday before admission. ABG on admission was normal except for a slightly low pCO2 at 31. She reports that her cough was productive with lots of phlegm, and that she would have episodes of emesis in the morning due to the amount of phlegm in her throat, however her cough currently is dry. This morning, the patient is awake and alert in her chair, no family at bedside. She reports that her symptoms have improved significantly since yesterday. She still has some shortness of breath after she has been ambulating and has a dry cough, but states that these are both improving. The patient also has some mild pain in a band-like pattern around her chest and upper back due to her coughing.The patient reports that she feels well overall and has no other symptoms. Date of Admission Aug 28, 2022 at 18:08 Date Seen by a Provider: Aug 29, 2022 Time Seen by a Provider: 09:30 I consulted on this patient on 08/29/22 12:01 Attending Physician Cindy Love DO Admitting Physician Admitting Physician: Cindy Love DO Attending Physician: Cindy Love DO Consult Allergies and Home Medications Allergies Coded Allergies: sumatriptan (Verified Allergy, Unknown, 06/05/17) Patient Home Medication List Home Medication List Reviewed: Yes ALPRAZolam (ALPRAZolam) 0.25 Mg Tablet, 0.25 MG PO BID PRN for ANXIETY, (Re ported) Entered as Reported by: JUVE RIVAS on 08/29/22 1625 Last Action: Reviewed Albuterol Sulfate (Proventil Hfa) 6.7 Gm Hfa.aer.ad, 2 PUFF INH Q6H PRN for SHORTNESS OF BREATH, (Reported) Entered as Reported by: LYNDA DEGROOT on 06/12/17 1330 Last Action: Reviewed Amlodipine Besylate (Amlodipine Besylate) 5 Mg Tablet, 5 MG PO DAILY, (Reported) Entered as Reported by: LYNDA DEGROOT on 10/13/16 0838 Last Action: Reviewed Levothyroxine Sodium (Levothyroxine Sodium) 125 Mcg Tablet, 125 MCG PO DAILY, (Reported) Entered as Reported by: PAGE EID on 06/28/20 124 Last Action: Reviewed Losartan Potassium (Losartan Potassium) 100 Mg Tablet, 100 MG PO DAILY, (Reported) Entered as Reported by: PAGE EID on 06/28/201243 Last Action: Reviewed Montelukast Sodium (Montelukast Sodium) 10 Mg Tablet, 10 MG PO HS, (Reported) Entered as Reported by: LYNDA DEGROOT on 06/10/15 1533 Last Action: Reviewed Norgestimate-Ethinyl Estradiol (Estarylla 0.25-0.035 mg Tablet) 0.25 Mg-35 Mcg Tablet, 1 EACH PO HS, (Reported) Entered as Reported by: PAGE EID on 06/28/201243 Last Action: Reviewed Pantoprazole Sodium (Pantoprazole Sodium) 40 Mg Tablet.dr, 40 MG PO DAILY, (Reported) Entered as Reported by: JUVE RIVAS on 08/29/22 162 Last Action: Reviewed Prednisone (Prednisone) 50 Mg Tab, 50 MG PO DAILY, (Reported) Entered as Reported by: JUVE RIVAS on 08/29/221624 Last Action: Reviewed Discontinued Medications Acetaminophen (Tylenol Extra Strength) 500 Mg Tablet, 1,000 MG PO Q8H PRN for PAIN-MILD (1-4), (Reported) Discontinued Reason: No Longer Taking Entered as Reported by: PAGE EID on 06/28/201243 Last Action: Discontinued Cetirizine HCl (Wal-Zyr) 10 Mg Tablet, 10 MG PO DAILY, (Reported) Discontinued Reason: No Longer Taking Entered as Reported by: PAGE EID on 06/28/201243 Last Action: Discontinued Ibuprofen (Ibuprofen) 200 Mg Tablet, 800 MG PO Q6H PRN for PAIN-MILD (1-4), (Reported) Discontinued Reason: Duplicate Order Entered as Reported by: PAGE EID on 06/28/201243 Last Action: Discontinued Past Elctnpy-Drkvod-Pmdpla Hx Patient Social History Tobacco Use?: No Smoking Status: Never a Smoker Use of E-Cig and/or Vaping dev: No Substance use?: No Alcohol Use?: Yes Alcohol Frequency: Once in a while Pt feels they are or have been: No Immunizations Up To Date Date of Influenza Vaccine: Oct 13, 2016 Tetanus Booster (TDap): Unknown Hepatitis A: No Hepatitis B: No PED Vaccines UTD: Yes Seasonal Allergies Seasonal Allergies: Yes Current Status status: No Communicates: Verbally Primary Language: Guyanese Preferred Spoken Language: Guyanese Is interpretation needed?: No Past Medical History Surgeries: Gallbladder Asthma, Pneumonia Currently Using CPAP: No Currently Using BIPAP: No Hypertension Sexually Transmitted Disease: No HIV/AIDS: No Kidney Stones Irritable Bowel Fractures Hypothyroidsim Loss of Vision: Bilateral Hearing Impairment: Denies Blood Disorders: Yes (HX OF ANEMIA) Adverse Reaction/Blood Tranf: No (N/A) Family Medical History Family history: Cardiovascular disease 03 FATHER Family history: Hypertension 03 MOTHER Headache disorder 03 FATHER (had brain tumor) 09 SISTER Myocardial infarction 03 FATHER Review of Systems Constitutional: No chills, No fever EENTM: No ear pain, No blurred vision, No double vision, No eye pain Respiratory: cough (dry, improving), dyspnea on exertion; No hemoptysis; wheezing Cardiovascular: No chest pain, No palpitations Gastrointestinal: No abdominal pain; loss of appetite (improved); No nausea, No vomiting Genitourinary: No dysuria, No hematuria Musculoskeletal: No back pain, No joint pain Skin: No change in color, No change in hair/nails Psychiatric/Neurological: Denies Numbness, Denies Paresthesia, Denies Tingling Physical Exam Vital Signs Vital Signs - First Documented 08/28/22 08/28/22 18:28 19:48 Temp 37.7 Pulse 104 Resp 22 B/P (MAP) 170/96 (120) Pulse Ox 96 O2 Delivery Room Air FiO2 21 Capillary Refill : Height, Weight, BMI Height: 5'4.00" Weight: 275lbs. 3.0oz. 124.916161ua; 53.34 BMI Method:Stated General Appearance: No Apparent Distress, WD/WN, Obese HEENT: PERRL/EOMI Neck: Non Tender, Supple Respiratory: Chest Non Tender, No Accessory Muscle Use, No Respiratory Distress, Wheezing Cardiovascular: Regular Rate, Rhythm, No Murmur, Normal Peripheral Pulses Gastrointestinal: Non Tender, Soft Rectal: Deferred Back: No Vertebral Tenderness Extremity: Normal Capillary Refill, Non Tender, No Calf Tenderness Neurologic/Psychiatric: Alert, Oriented x3 Skin: Normal Color, Warm/Dry Lymphatic: No Adenopathy Assessment/Plan Assessment and Plan Status asthmaticus Asthma Hypothyroidism HTN Hyperglycemia Obesity Currently well oxygenated on RA Continue azithromycin Continue nebulizers Continue steroids Antitussives Home meds High glucose likely from steroids, will follow with PCP Benigno for DVT prophylaxis Counseled on benefits of weight loss Can likely discharge home tomorrow Admission Diagnosis Status asthmaticus Admission Status: Observation CINDY LOVE DO 08/30/22 0511: History of Present Illness History of Present Illness Reason for visit/HPI CC: SOB HPI: This is a 42 yr old female clinic pt of [facility] for 19 years. She has a past medical history of asthma and rare occasions of status asthmaticus. She presented to the hospital from direct admission from clinic due to status asthmaticus. She is doing a lot better. IV steroids helped. Wheezing has improved. Chest x-ray and labs all reviewed. Pt will continue aggressive treatment due to high intubation risk. Allergies and Home Medications Allergies Coded Allergies: sumatriptan (Verified Allergy, Unknown, 06/05/17) Patient Home Medication List ALPRAZolam (ALPRAZolam) 0.25 Mg Tablet, 0.25 MG PO BID PRN for ANXIETY, (Reported) Entered as Reported by: JUVE RIVAS on 08/29/22 1625 Last Action: Reviewed Albuterol Sulfate (Proventil Hfa) 6.7 Gm Hfa.aer.ad, 2 PUFF INH Q6H PRN for SHORTNESS OF BREATH, (Reported) Entered as Reported by: LYNDA DEGROOT on 06/12/17 1330 Last Action: Reviewed Amlodipine Besylate (Amlodipine Besylate) 5 Mg Tablet, 5 MG PO DAILY, (Reported) Entered as Reported by: LYNDA DEGROOT on 10/13/16 0838 Last Action: Reviewed Levothyroxine Sodium (Levothyroxine Sodium) 125 Mcg Tablet, 125 MCG PO DAILY, (Reported) Entered as Reported by: PAGE EID on 06/28/20 1241 Last Action: Reviewed Losartan Potassium (Losartan Potassium) 100 Mg Tablet, 100 MG PO DAILY, (Reported) Entered as Reported by: PAGE EID on 06/28/201243 Last Action: Reviewed Montelukast Sodium (Montelukast Sodium) 10 Mg Tablet, 10 MG PO HS, (Reported) Entered as Reported by: LYNDA DEGROOT on 06/10/15 1533 Last Action: Reviewed Norgestimate-Ethinyl Estradiol (Estarylla 0.25-0.035 mg Tablet) 0.25 Mg-35 Mcg Tablet, 1 EACH PO HS, (Reported) Entered as Reported by: PAGE EID on 06/28/201243 Last Action: Reviewed Pantoprazole Sodium (Pantoprazole Sodium) 40 Mg Tablet.dr, 40 MG PO DAILY, (Reported) Entered as Reported by: JUVE RIVAS on 08/29/221624 Last Action: Reviewed Prednisone (Prednisone) 50 Mg Tab, 50 MG PO DAILY, (Reported) Entered as Reported by: JUVE RIVAS on 08/29/221624 Last Action: Reviewed Discontinued Medications Acetaminophen (Tylenol Extra Strength) 500 Mg Tablet, 1,000 MG PO Q8H PRN for PAIN-MILD (1-4), (Reported) Discontinued Reason: No Longer Taking Entered as Reported by: PAGE EID on 06/28/201243 Last Action: Discontinued Cetirizine HCl (Wal-Zyr) 10 Mg Tablet, 10 MG PO DAILY, (Reported) Discontinued Reason: No Longer Taking Entered as Reported by: PAGE EID on 06/28/201243 Last Action: Discontinued Ibuprofen (Ibuprofen) 200 Mg Tablet, 800 MG PO Q6H PRN for PAIN-MILD (1-4), (Reported) Discontinued Reason: Duplicate Order Entered as Reported by: PAGE EID on 06/28/201243 Last Action: Discontinued Past Pzsrswl-Ejxnti-Fepcfw Hx Family Medical History Family history: Cardiovascular disease 03 FATHER Family history: Hypertension 03 MOTHER Headache disorder 03 FATHER (had brain tumor) 09 SISTER Myocardial infarction 03 FATHER Assessment/Plan Assessment and Plan Status asthmaticus HTN Problems: (1) Status asthmaticus Status: Acute Admission Diagnosis Admission Status: Observation Supervisory-Addendum Brief Verification & Attestation Participated in pt care: history, MDM, physical Personally performed: exam, history, MDM, supervision of care Care discussed with: Medical Student Procedures: n/a Results interpretation: Verified all documentation Verification and Attestation of Medical Student E/M Service A medical student performed and documented this service in my presence. I reviewed and verified all information documented by the medical student and made modifications to such information, when appropriate. I personally performed the physical exam and medical decision making. Cindy Love, Aug 30, 2022,05:10 RINKU DAI Aug 29, 2022 12:03 CINDY LOVE DO Aug 30, 2022 05:11
[2022-08-29 15:08] VITALS: BP 148/76
[2022-08-29] MEDS ORDERED: PANT40TA52 PO (16:25)
[2022-08-29] MEDS ORDERED: PRD50T PO (16:25)
[2022-08-29] MEDS ORDERED: ALPR0.254 PO (16:25)
[2022-08-29] MEDS: cefTRIAXone 1 GM PRE-MIX 50 ML IV SCH (18:14)
[2022-08-29 19:24] VITALS: BP 165/82
[2022-08-29] MEDS: ACETAMINOPHEN 325 MG TABLET PO PRN (19:59)
[2022-08-29] MEDS: MONTELUKAST 10 MG (SINGULAIR) TAB PO SCH (20:00)
[2022-08-29] MEDS ORDERED: RT-ALBUTEROL SULF 2.5 MG/3 ML PRE-MIX VIAL INH PRN (20:00)
[2022-08-30] MEDS: methylPREDNISolone 40 MG/ML (Solu-MEDROL) VIAL IV SCH ×3 (00:24→11:05)
[2022-08-30 00:25] VITALS: BP 150/80
[2022-08-30] MEDS: RT-ALBUTEROL SULF 2.5 MG/3 ML PRE-MIX VIAL INH SCH ×4 (02:57→14:58)
[2022-08-30 03:05] VITALS: BP 148/84
[2022-08-30] MEDS: inSUlin ASPART (NovoLOG) 1 UNIT/0.01 ML (CHARGE PER UNIT) SC SCH ×2 (05:39→11:05)
[2022-08-30 06:53] LABS: BASOPHILS % (AUTO) 0 % (0-10); EOSINOPHILS % (AUTO) 0 % (0-10); HEMATOCRIT 39 % (35-52); HEMOGLOBIN 12.6 g/dL (11.5-16.0); LYMPHOCYTES # (AUTO) 1.6 10^3/uL (1.0-4.0); LYMPHOCYTES % (AUTO) 14 % (12-44); MEAN CORPUSCULAR HEMOGLOBIN 28 pg (25-34); MEAN CORPUSCULAR HGB CONC 33 g/dL (32-36); MEAN CORPUSCULAR VOLUME 87 fL (80-99); MEAN PLATELET VOLUME 10.3 fL (9.0-12.2); MONOCYTES # (AUTO) 0.5 10^3/uL (0.0-1.0); MONOCYTES % (AUTO) 4 % (0-12); NEUTROPHILS # (AUTO) 9.4 10^3/uL (1.8-7.8); NEUTROPHILS % (AUTO) 80 % (42-75); PLATELET COUNT 321 10^3/uL (130-400); WHITE BLOOD COUNT 11.7 10^3/uL (4.3-11.0)
[2022-08-30 07:08] LABS: ALBUMIN 3.5 GM/DL (3.2-4.5); BILIRUBIN,TOTAL 0.3 MG/DL (0.1-1.0); CALCIUM 8.8 MG/DL (8.5-10.1); CREATININE SERUM 0.71 MG/DL (0.60-1.30); TOTAL PROTEIN 6.6 GM/DL (6.4-8.2)
[2022-08-30] MEDS: RT--FLUTICASONE/SALMETEROL 113-14 (AIRDUO RespiCLICK) IH SCH (07:23)
[2022-08-30 08:00] VITALS: BP 160/104
[2022-08-30] MEDS: ACETAMINOPHEN 325 MG TABLET PO PRN (08:19)
[2022-08-30] MEDS: SENNOSIDES 8.6 MG (SENOKOT) TAB PO SCH (08:43)
[2022-08-30] MEDS: BENZONATATE 100 MG (TESSALON) CAPSULE PO SCH ×2 (08:43→14:18)
[2022-08-30] MEDS: DOCUSATE SODIUM 100 MG (COLACE) CAP PO SCH (08:43)
[2022-08-30] MEDS: ENOXAPARIN 60 MG/0.6 ML (LOVENOX) SYR SC SCH (08:43)
[2022-08-30] MEDS: amLODIPine 5 MG (NORVASC) TAB PO SCH (08:43)
[2022-08-30] MEDS ORDERED: AZITHROMYCIN 250 MG TAB (ZITHROMAX) PO SCH (09:00)
[2022-08-30] MEDS ORDERED: HYDROmorphone 2 MG/ML VIAL (DILAUDID) IVP ONE (11:00)
[2022-08-30] MEDS ORDERED: CEFD300C3 PO (11:29)
[2022-08-30] MEDS ORDERED: OXC5T PO (11:29)
[2022-08-30] MEDS ORDERED: PRED10TA22 PO (11:29)
[2022-08-30] MEDS ORDERED: FLUT1AER4 IH (11:29)
--- NOTE | 2022-08-30 11:31 | Discharge Summary ---
Diagnosis/Chief Complaint Date of Admission Aug 28, 2022 at 18:08 Date of Discharge Discharge Date: Aug 30, 2022 Discharge Diagnosis Status asthmaticus Asthma Hypothyroidism HTN Hyperglycemia Obesity Currently well oxygenated on RA Continue azithromycin Continue nebulizers Continue steroids Antitussives Home meds High glucose likely from steroids, will follow with PCP Benigno for DVT prophylaxis Counseled on benefits of weight loss Can likely discharge home tomorrow Reason Hospital Visit CC: SOB HPI: This is a 42 yr old female clinic pt of mine for 19 years. She has a past medical history of asthma and rare occasions of status asthmaticus. She presented to the hospital from direct admission from clinic due to status asthmaticus. She is doing a lot better. IV steroids helped. Wheezing has improved. Chest x-ray and labs all reviewed. Pt will continue aggressive treatment due to high intubation risk. Discharge Summary Discharge Physical Examination Allergies: Coded Allergies: sumatriptan (Verified Allergy, Unknown, 06/05/17) Vitals & I&Os Vital Signs Date Time Temp Pulse Resp B/P (MAP) Pulse Ox O2 Delivery O2 Flow Rate FiO2 08/30/22 15:32 36.8 89 18 154/89 95 Room Air 0.00 08/28/22 19:48 21 General Appearance: Alert, Oriented X3, Cooperative Respiratory: Clear to Auscultation, Other (subtle wheeze) Neuro: Normal Gait, Normal Speech, Strength at 5/5 X4 Ext Hospital Course Was the Problem List Reviewed?: Yes Pt had an uneventful 3 day hospital course. She was admitted for status asthmaticus directly from my clinic. She received Rocephin and Zithromax to cover for any type of bacterial bronchitis. She was given IV steroids and ultimately improved enough to go home on Prednisone taper dose, Omnicef, and inhaled corticosteroid, along with her other medications. She will have close follow up with me in the clinic and we will be on stand by for any clinical status decline. Labs (last 24 hrs) Laboratory Tests 08/28/22 18:35: White Blood Count 7.3, Red Blood Count 4.60, Hemoglobin 12.9, Hematocrit 40, Mean Corpuscular Volume 87, Mean Corpuscular Hemoglobin 28, Mean Corpuscular Hemoglobin Concent 32, Red Cell Distribution Width 12.5, Platelet Count 302, Mean Platelet Volume 9.9, Immature Granulocyte % (Auto) 2, Neutrophils (%) (Auto) 71, Lymphocytes (%) (Auto) 22, Monocytes (%) (Auto) 5, Eosinophils (%) (Auto) 0, Basophils (%) (Auto) 0, Neutrophils # (Auto) 5.2, Lymphocytes # (Auto) 1.6, Monocytes # (Auto) 0.4, Eosinophils # (Auto) 0.0, Basophils # (Auto) 0.0, Immature Granulocyte # (Auto) 0.1, Sodium Level 141, Potassium Level 3.9, Chloride Level 109H, Carbon Dioxide Level 17L, Anion Gap 15H, Blood Urea Nitrogen 9, Creatinine 0.71, Estimat Glomerular Filtration Rate 110, BUN/Creatinine Ratio 13, Glucose Level 157H, Lactic Acid Level 1.85, Calcium Level 8.9, Corrected Calcium 9.1, Total Bilirubin 0.3, Aspartate Amino Transf (AST/SGOT) 33, Alanine Aminotransferase (ALT/SGPT) 46, Alkaline Phosphatase 95, Total Protein 7.1, Albumin 3.7, Procalcitonin 0.02, Serum Test, Qualit ative NEGATIVE 08/28/22 18:45: Influenza Type A (RT-PCR) Not Detected, Influenza Type B (RT-PCR) Not Detected 08/28/22 19:20: Blood Gas Puncture Site L RADIAL, Blood Gas Patient Temperature 37.0, Arterial Blood pH 7.43, Arterial Blood Partial Pressure CO2 31L, Arterial Blood Partial Pressure O2 82, Arterial Blood HCO3 20L, Arterial Blood Total CO2 21.3, Arterial Blood Oxygen Saturation 97, Arterial Blood Base Excess -3.2L, Mikie Test YES- POS, Blood Gas Ventilator Setting NO, Blood Gas Inspired Oxygen ROOM AIR 08/29/22 05:14: Glucometer 198H 08/29/22 05:30: White Blood Count 6.1, Red Blood Count 4.35, Hemoglobin 12.3, Hematocrit 38, Mean Corpuscular Volume 87, Mean Corpuscular Hemoglobin 28, Mean Corpuscular Hemoglobin Concent 32, Red Cell Distribution Width 12.5, Platelet Count 295, Mean Platelet Volume 10.4, Immature Granulocyte % (Auto) 1, Neutrophils (%) (Auto) 78H, Lymphocytes (%) (Auto) 19, Monocytes (%) (Auto) 2, Eosinophils (%) (Auto) 0, Basophils (%) (Auto) 0, Neutrophils # (Auto) 4.7, Lymphocytes # (Auto) 1.2, Monocytes # (Auto) 0.1, Eosinophils # (Auto) 0.0, Basophils # (Auto) 0.0, Immature Granulocyte # (Auto) 0.1, Sodium Level 139, Potassium Level 3.8, Chloride Level 107, Carbon Dioxide Level 19L, Anion Gap 13, Blood Urea Nitrogen 11, Creatinine 0.71, Estimat Glomerular Filtration Rate 110, BUN/Creatinine Ratio 15, Glucose Level 198H, Calcium Level 8.6, Corrected Calcium 9.0, Total Bilirubin 0.4, Aspartate Amino Transf (AST/SGOT) 28, Alanine Aminotransferase (ALT/SGPT) 49, Alkaline Phosphatase 86, Total Protein 6.5, Albumin 3.5 08/29/22 11:00: Glucometer 220H 08/29/22 15:09: Glucometer 198H 08/29/22 19:26: Glucometer 196H 08/30/22 05:35: Glucometer 219H 08/30/22 06:41: White Blood Count 11.7H, Red Blood Count 4.46, Hemoglobin 12.6, Hematocrit 39, Mean Corpuscular Volume 87, Mean Corpuscular Hemoglobin 28, Mean Corpuscular Hemoglobin Concent 33, Red Cell Distribution Width 12.3, Platelet Count 321, Mean Platelet Volume 10.3, Immature Granulocyte % (Auto) 2, Neutrophils (%) (Auto) 80H, Lymphocytes (%) (Auto) 14, Monocytes (%) (Auto) 4, Eosinophils (%) (Auto) 0, Basophils (%) (Auto) 0, Neutrophils # (Auto) 9.4H, Lymphocytes # (Au to) 1.6, Monocytes # (Auto) 0.5, Eosinophils # (Auto) 0.0, Basophils # (Auto) 0.0, Immature Granulocyte # (Auto) 0.2H, Sodium Level 138, Potassium Level 4.0, Chloride Level 105, Carbon Dioxide Level 19L, Anion Gap 14, Blood Urea Nitrogen 13, Creatinine 0.71, Estimat Glomerular Filtration Rate 110, BUN/Creatinine Ratio 18, Glucose Level 233H, Calcium Level 8.8, Corrected Calcium 9.2, Total Bilirubin 0.3, Aspartate Amino Transf (AST/SGOT) 16, Alanine Aminotransferase (ALT/SGPT) 50, Alkaline Phosphatase 88, Total Protein 6.6, Albumin 3.5 08/30/22 10:42: Glucometer 202H Microbiology 08/28/22 Blood Culture - Preliminary, Resulted No growth 08/28/22 Gram Stain - Final, Resulted 08/28/22 Sputum Culture - Preliminary, Resulted Usual upper respiratory cate Pending Labs Microbiology Date/Time Source Procedure Growth Status 08/28/22 18:35 Peripheral Rt Ac Blood Culture - Preliminary No growth Resulted 08/28/22 18:35 Peripheral Lt Hand Blood Culture - Preliminary No growth Resulted 08/28/22 11:00 Sputum Expectorated Gram Stain - Final Resulted 08/28/22 11:00 Sputum Culture - Preliminary Usual upper respiratory cate Resulted Laboratory Tests 08/28/22 18:35: White Blood Count 7.3, Red Blood Count 4.60, Hemoglobin 12.9, Hematocrit 40, Mean Corpuscular Volume 87, Mean Corpuscular Hemoglobin 28, Mean Corpuscular Hemoglobin Concent 32, Red Cell Distribution Width 12.5, Platelet Count 302, Mean Platelet Volume 9.9, Immature Granulocyte % (Auto) 2, Neutrophils (%) (Auto) 71, Lymphocytes (%) (Auto) 22, Monocytes (%) (Auto) 5, Eosinophils (%) (Auto) 0, Basophils (%) (Auto) 0, Neutrophils # (Auto) 5.2, Lymphocytes # (Auto) 1.6, Monocytes # (Auto) 0.4, Eosinophils # (Auto) 0.0, Basophils # (Auto) 0.0, Immature Granulocyte # (Auto) 0.1, Sodium Level 141, Potassium Level 3.9, Chloride Level 109, Carbon Dioxide Level 17, Anion Gap 15, Blood Urea Nitrogen 9, Creatinine 0.71, Estimat Glomerular Filtration Rate 110, BUN/Creatinine Ratio 13, Glucose Level 157, Lactic Acid Level 1.85, Calcium Level 8.9, Corrected Calcium 9.1, Total Bilirubin 0.3, Aspartate Amino Transf (AST/SGOT) 33, Alanine Aminotransferase (ALT/SGPT) 46, Alkaline Phosphatase 95, Total Protein 7.1, Albumin 3.7, Procalcitonin 0.02, Serum Test, Qualitative NEGATIVE 08/28/22 18:45: Influenza Type A (RT-PCR) Not Detected, Influenza Type B (RT-PCR) Not Detected 08/28/22 19:20: Blood Gas Puncture Site L RADIAL, Blood Gas Patient Temperature 37.0, Arterial Blood pH 7.43, Arterial Blood Partial Pressure CO2 31, Arterial Blood Partial Pressure O2 82, Arterial Blood HCO3 20, Arterial Blood Total CO2 21.3, Arterial Blood Oxygen Saturation 97, Arterial Blood Base Excess -3.2, Mikie Test YES-POS, Blood Gas Ventilator Setting NO, Blood Gas Inspired Oxygen ROOM AIR 08/29/22 05:14: Glucometer 198 08/29/22 05:30: White Blood Count 6.1, Red Blood Count 4.35, Hemoglobin 12.3, Hematocrit 38, Mean Corpuscular Volume 87, Mean Corpuscular Hemoglobin 28, Mean Corpuscular Hemoglobin Concent 32, Red Cell Distribution Width 12.5, Platelet Count 295, Mean Platelet Volume 10.4, Immature Granulocyte % (Auto) 1, Neutrophils (%) (Auto) 78, Lymphocytes (%) (Auto) 19, Monocytes (%) (Auto) 2, Eosinophils (%) (Auto) 0, Basophils (%) (Auto) 0, Neutrophils # (Auto) 4.7, Lymphocytes # (Auto) 1.2, Monocytes # (Auto) 0.1, Eosinophils # (Auto) 0.0, Basophils # (Auto) 0.0, Immature Granulocyte # (Auto) 0.1, Sodium Level 139, Potassium Level 3.8, Chloride Level 107, Carbon Dioxide Level 19, Anion Gap 13, Blood Urea Nitrogen 11, Creatinine 0.71, Estimat Glomerular Filtration Rate 110, BUN/Creatinine Ratio 15, Glucose Level 198, Calcium Level 8.6, Corrected Calcium 9.0, Total Bilirubin 0.4, Aspartate Amino Transf (AST/SGOT) 28, Alanine Aminotransferase (ALT/SGPT) 49, Alkaline Phosphatase 86, Total Protein 6.5, Albumin 3.5 08/29/22 11:00: Glucometer 220 08/29/22 15:09: Glucometer 198 08/29/22 19:26: Glucometer 196 08/30/22 05:35: Glucometer 219 08/30/22 06:41: White Blood Count 11.7, Red Blood Count 4.46, Hemoglobin 12.6, Hematocrit 39, Mean Corpuscular Volume 87, Mean Corpuscular Hemoglobin 28, Mean Corpuscular Hemoglobin Concent 33, Red Cell Distribution Width 12.3, Platelet Count 321, Mean Platelet Volume 10.3, Immature Granulocyte % (Auto) 2, Neutrophils (%) (Auto) 80, Lymphocytes (%) (Auto) 14, Monocytes (%) (Auto) 4, Eosinophils (%) (Auto) 0, Basophils (%) (Auto) 0, Neutrophils # (Auto) 9.4, Lymphocytes # (Auto) 1.6, Monocytes # (Auto) 0.5, Eosinophils # (Auto) 0.0, Basophils # (Auto) 0.0, Immature Granulocyte # (Auto) 0.2, Sodium Level 138, Potassium Level 4.0, Chloride Level 105, Carbon Dioxide Level 19, Anion Gap 14, Blood Urea Nitrogen 13, Creatinine 0.71, Estimat Glomerular Filtration Rate 110, BUN/Creatinine Ratio 18, Glucose Level 233, Calcium Level 8.8, Corrected Calcium 9.2, Total Bilirubin 0.3, Aspartate Amino Transf (AST/SGOT) 16, Alanine Aminotransferase (ALT/SGPT) 50, Alkaline Phosphatase 88, Total Protein 6.6, Albumin 3.5 08/30/22 10:42: Glucometer 202 Discharge Home Medications: Active Scripts Active Prednisone 10 Mg Tab.ds.pk 60 Mg PO DAILY Take 6 tabs(60mg)daily,decrease by 1 tab(10MG) every other day. Cefdinir 300 Mg Capsule 300 Mg PO BID Fluticasone-Salmeterol 113-14 (Fluticasone/Salmeterol) 113 Mcg-14 Mcg/Actuation Aer.pow.ba 0 Each IH RTBID twice daily Oxyir Tablet (Oxycodone HCl) 5 Mg Tab 5 Mg PO Q4HR PRN Reported Pantoprazole Sodium 40 Mg Tablet.dr 40 Mg PO DAILY ALPRAZolam 0.25 Mg Tablet 0.25 Mg PO BID PRN Estarylla 0.25-0.035 mg Tablet (Norgestimate-Ethinyl Estradiol) 0.25 Mg-35 Mcg Tablet 1 Each PO HS Losartan Potassium 100 Mg Tablet 100 Mg PO DAILY Levothyroxine Sodium 125 Mcg Tablet 125 Mcg PO DAILY Proventil Hfa (Albuterol Sulfate) 6.7 Gm Hfa.aer.ad 2 Puff INH Q6H PRN Amlodipine Besylate 5 Mg Tablet 5 Mg PO DAILY Montelukast Sodium 10 Mg Tablet 10 Mg PO HS Instructions to patient/family Please see electronic discharge instructions given to patient. Diagnosis/Problems Diagnosis/Problems (1) Status asthmaticus Status: Acute Qualifiers: Qualified Codes: J45.902 - Unspecified asthma with status asthmaticus ALICIA LOVE DO Aug 30, 2022 11:31
[2022-08-30 12:00] VITALS: BP 154/89
[2022-08-30 15:32] VITALS: BP 154/89
[2022-08-30] MEDS ORDERED: MONTELUKAST 10 MG (SINGULAIR) TAB PO SCH (21:00)
[2022-08-31] MEDS ORDERED: LOSARTAN 100 MG (COZAAR) TABLET PO SCH (09:00)
[2022-08-31] MEDS ORDERED: PANTOPRAZOLE 40 MG (PROTONIX) TAB PO SCH (09:00)
[2022-08-31] MEDS ORDERED: LEVOTHYROXINE 125 MCG (LEVOTHROID) TABLET PO SCH (09:00)
== END 2022-08-30 15:30 | disposition home or self-care (01) ==
LOC: UNDOADMOB 18:08 → 4TH 18:08 → UNDODISOB 08-30 15:30
PROVIDERS: ADMIT Internal Medicine; ATTEND Internal Medicine
DX: J45.902 Unspecified asthma with status asthmaticus (principal); E03.9 Hypothyroidism, unspecified; I10 Essential (primary) hypertension; R73.9 Hyperglycemia, unspecified; E66.9 Obesity, unspecified; Z79.899 Other long term (current) drug therapy; Z68.43 Body mass index [BMI] 50.0-59.9, adult
CPT/HCPCS: 36600; 71045; 80053 ×3; 82805; 82947 ×2; 83605; 84145; 84703; 85025 ×3; 87040; 87070; 87205; 94640 ×6; 94760 ×2; 96366; 96372 ×3; 96374; 96375 ×2; 96376 ×2; G0378; G0379; 36415

== ENCOUNTER 2023-06-14 19:57 | Emergency (ER) | payer BC ==
[~2023-06-14 19:57] MED LIST changes: +CEFD300C3 PO; +FLUT1AER4 IH; -LOSA100T57 PO; +LOSA100T58 PO; +OXC5T PO; +PANT40TA52 PO; +PRD50T PO
--- NOTE | 2023-06-14 21:25 | Diagnostic Imaging Report ---
INDICATION: Right ankle injury and pain. FINDINGS: Alignment of the ankle is appropriate. There is no cortical disruption demonstrated of the tibia or the fibula. There is no widening of ankle mortise. The talar dome is normal in its normal morphology. Right foot demonstrates osteoarthritic spurring within the mid foot and calcaneal spurs. There is ankle soft tissue swelling. IMPRESSION: 1. No evidence of right ankle fracture or malalignment. Dictated by: Dictated on workstation # [id number]
[2023-06-14] MEDS ORDERED: KETO10TA PO (21:42)
[2023-06-14] MEDS ORDERED: RX-NAPROXEN (NAPROSYN) 250 MG TAB PPK#4 PO STA (21:43)
--- NOTE | 2023-06-14 21:43 | ED Lower Extremity ---
General Chief Complaint: Lower Extremity Stated Complaint: FALL, RT ANKLE INJ Nursing Triage Note: TO ED VIA POV AND W/C TO [facility] WITH C/O RIGHT ANKLE PAIN AFTER STEPPING INTO HOLE IN GRASS AND FALLING DOWN AND HEARD "POP". HX FRACTURE IN RIGHT ANKLE 5 YEARS AGO. Allergies and Home Medications Allergies Coded Allergies: sumatriptan (Verified Allergy, Unknown, 06/05/17) Patient Home Medication List ALPRAZolam (ALPRAZolam) 0.25 Mg Tablet, 0.25 MG PO BID PRN for ANXIETY, (Reported) Entered as Reported by: JUVE RIVAS on 08/29/22 1625 Albuterol Sulfate (Proventil Hfa) 6.7 Gm Hfa.aer.ad, 2 PUFF INH Q6H PRN for SHORTNESS OF BREATH, (Reported) Entered as Reported by: LYNDA DEGROOT on 06/12/17 1330 Amlodipine Besylate (Amlodipine Besylate) 5 Mg Tablet, 5 MG PO DAILY, (Reported) Entered as Reported by: LYNDA DEGROOT on 10/13/16 0838 Cefdinir (Cefdinir) 300 Mg Capsule, 300 MG PO BID Prescribed by: ALICIA LOVE on 08/30/22 1129 Fluticasone/Salmeterol (Fluticasone-Salmeterol 113-14) 113 Mcg-14 Mcg/Actuation Aer.pow.ba, 0 EACH IH RTBID Prescribed by: ALICIA LOVE on 08/30/22 1129 Levothyroxine Sodium (Levothyroxine Sodium) 125 Mcg Tablet, 125 MCG PO DAILY, (Reported) Entered as Reported by: PAGE EID on 06/28/20 1241 Losartan Potassium (Losartan Potassium) 100 Mg Tablet, 100 MG PO DAILY, (Reported) Entered as Reported by: PAGE EID on 06/28/20 1244 Montelukast Sodium (Montelukast Sodium) 10 Mg Tablet, 10 MG PO HS, (Reported) Entered as Reported by: LYNDA DEGROOT on 06/10/15 1533 Norgestimate-Ethinyl Estradiol (Estarylla 0.25-0.035 mg Tablet) 0.25 Mg-35 Mcg Tablet, 1 EACH PO HS, (Reported) Entered as Reported by: PAGE EID on 06/28/20 1244 Oxycodone Hcl (Oxyir Tablet) 5 Mg Tab, 5 MG PO Q4HR PRN for PAIN-SEE DOSE INSTRUCTIONS Prescribed by: ALICIA LOVE on 08/30/22 1130 Pantoprazole Sodium (Pantoprazole Sodium) 40 Mg Tablet.dr, 40 MG PO DAILY, (Reported) Entered as Reported by: JUVE RIVAS on 08/29/22 1625 Prednisone (Prednisone) 10 Mg Tab.ds.pk, 60 MG PO DAILY Prescribed by: ALICIA LOVE on 08/30/22 1129 Past Tdycepa-Chldbf-Ujpouk Hx Patient Social History Tobacco Use?: No Immunizations Up To Date Tetanus Booster (TDap): Unknown PED Vaccines UTD: Yes Seasonal Allergies Seasonal Allergies: Yes Past Medical History Surgeries: Yes (acl repair, knee scope, discectomy X2, wisdom teeth removed ) Gallbladder Respiratory: Yes (SEASONAL ALLERGIES) Asthma, Pneumonia Currently Using CPAP: No Currently Using BIPAP: No Cardiac: Yes Hypertension 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) Reproductive Disorders: No (DUB, POLYP) Female Reproductive Disorders: Menstrual Problems Sexually Transmitted Disease: No HIV/AIDS: No Genitourinary: Yes Kidney Stones Gastrointestinal: Yes Irritable Bowel Musculoskeletal: Yes (herniated l4-l5--back discectomy 2011; LEFT ACL, knee scope, ) Fractures Endocrine: Yes Hypothyroidsim HEENT: No Loss of Vision: Bilateral Hearing Impairment: Denies Cancer: No Psychosocial: No Integumentary: No (hx skin fungus) Blood Disorders: Yes (HX OF ANEMIA) Adverse Reaction/Blood Tranf: No (N/A) Family Medical History Family history: Cardiovascular disease 03 FATHER Family history: Hypertension 03 MOTHER Headache disorder 03 FATHER (had brain tumor) 09 SISTER Myocardial infarction 03 FATHER Physical Exam Vital Signs Vital Signs - First Documented 06/14/23 20:32 Pulse 88 Resp 16 B/P (MAP) 193/107 (135) Pulse Ox 98 O2 Delivery Room Air Capillary Refill : Less Than 3 Seconds Height, Weight, BMI Height: 5'4.00" Weight: 275lbs. 3.0oz. [id number]; 53.34 BMI Method:Stated Progress/Results/Core Measures Results/Orders My Orders Orders - VICKI MAYES DO Ankle, Right, 3 Views (06/14/23 20:56) Vital Signs/I&O 06/14/23 20:32 Pulse 88 Resp 16 B/P (MAP) 193/107 (135) Pulse Ox 98 O2 Delivery Room Air Blood Pressure Mean: 135 Departure Impression Primary Impression: Right ankle sprain Disposition: HOME, SELF-CARE Condition: Stable Departure-Patient Inst. Decision time for Depature: 21:39 Referrals: ALICIA LOVE DO (PCP) Primary Care Physician Patient Instructions: How to Use an Elastic Bandage, Using Cold for Pain, Walking Boot Add. Discharge Instructions: ICE TO AREA AT 20 MINUTE INTERVALS FRITZ WRAP AND BOOT AT ALL TIMES ELEVATE FOOT MUCH POSSIBLE FOLLOW UP WITH DR. HARPER IN 1 WEEK IF NO BETTER All discharge instructions reviewed with patient and/or family. Voiced understanding. Scripts Ketorolac Tromethamine (Ketorolac Tromethamine) 10 Mg Tablet 10 MG PO Q6H for Pain, #15 TAB Prov: VICKI MAYES DO 06/14/23 VICKI MAYES DO Jun 14, 2023 21:43
[2023-06-14 22:03] VITALS: BP 178/89
== END 2023-06-14 22:03 | disposition home or self-care (01) ==
LOC: EDUNIT# 19:57 → ER 20:00
DX: S93.401A Sprain of unspecified ligament of right ankle, initial encounter (principal); X50.1XXA Overexertion from prolonged static or awkward postures, initial encounter; W17.2XXA Fall into hole, initial encounter
CPT/HCPCS: 73610; 99282; L2114